=== PATIENT | female | born 1940 | race Caucasian/White ===

== ENCOUNTER → 2017-08-08 | Outpatient (CLI) | payer OTHER ==
[~2017-08-08] MED LIST: ALPR1TAB2 PO; CITA20TA9 PO; LEVO75TA PO; LISI-729 PO; MRLP17 PO
[2017-08-08 09:35] LABS: BASO % 0.6 %; BASO ABS # 0.03 K/uL (0-0.2); COMPLETE YES; EOS % 3.3 %; HEMATOCRIT 40.2 % (37-47); IG% 0.2 %; LYMPH % 32.6 %; LYMPH ABS # 1.67 K/uL (1.2-3.4); MEAN CELL VOLUME 91.6 fL (80-100); MEAN CORPUSCULAR HEMOGLOBIN 30.8 pg (25-34); MEAN CORPUSCULAR HGB CONC 33.6 g/dl (32-36); MEAN PLATELET VOLUME 10.5 fL (7.4-10.4); MONO % 6.1 %; NEUT % 57.2 %; PLATELET COUNT 219 K/uL (130-400); RED BLOOD COUNT 4.39 M/uL (4.2-5.4); WHITE BLOOD COUNT 5.12 K/uL (4.8-10.8)
[2017-08-08 09:52] LABS: BLOOD UREA NITROGEN 19 mg/dl (7-18); BUN/CREATININE RATIO 18.9 (10-20); CALCIUM 9.3 mg/dl (8.5-10.1); CARBON DIOXIDE 29 mmol/L (21-32); CHLORIDE 108 mmol/L (98-107); CREATININE 0.98 mg/dl (0.60-1.20); GLUCOSE 100 mg/dl (70-99); PHOSPHORUS 3.6 mg/dl (2.5-4.9); POTASSIUM 4.5 mmol/L (3.5-5.1); SODIUM 143 mmol/L (136-145)
[2017-08-08 10:01] LABS: ALB/GLOB RATIO 1.1 (0.9-2); ALKALINE PHOSPHATASE 109 U/L (45-117); ALT/SGPT 18 U/L (12-78); AST/SGOT 15 U/L (15-37); CHOLESTEROL 185 mg/dl (0-200); HDL CHOLESTEROL 46 mg/dl; LDL CHOLESTEROL CALCULATED 104 mg/dl; TRIGLYCERIDES 177 mg/dl (0-150); URIC ACID 6.3 mg/dl (2.6-7.2); VERY LOW DENSITY LIPOPROT CALC 35 mg/dl
[2017-08-08 14:30] LABS: ESTIMATED AVERAGE GLUCOSE 111 mg/dl; HA1C FLAG Normal (Normal)
== END | disposition home or self-care (01) ==
LOC: C.LAB1850 07:46
PROVIDERS: ATTEND Family Medicine
DX: R73.09 Other abnormal glucose (principal); E55.9 Vitamin D deficiency, unspecified; D51.9 Vitamin B12 deficiency anemia, unspecified

== ENCOUNTER → 2018-01-31 | Outpatient (CLI) | payer OTHER ==
[2018-01-31 13:23] LABS: BASO % 0.5 %; BASO ABS # 0.04 K/uL (0-0.2); EOS % 1.9 %; EOS ABS # 0.15 K/uL (0-0.5); HEMATOCRIT 40.5 % (37-47); HEMOGLOBIN 13.4 g/dL (12.0-16.0); IG# 0.01 K/uL (0.00-0.02); LYMPH % 31.5 %; LYMPH ABS # 2.48 K/uL (1.2-3.4); MEAN CELL VOLUME 91.6 fL (80-100); MEAN CORPUSCULAR HEMOGLOBIN 30.3 pg (25-34); MEAN CORPUSCULAR HGB CONC 33.1 g/dl (32-36); MEAN PLATELET VOLUME 10.4 fL (7.4-10.4); MONO % 4.3 %; MONO ABS # 0.34 K/uL (0.11-0.59); NEUT % 61.7 %; NEUT ABS # 4.86 K/uL (1.4-6.5); PLATELET COUNT 244 K/uL (130-400); RED CELL DISTRIBUTION WIDTH CV 12.5 % (11.5-14.5); RED CELL DISTRIBUTION WIDTH SD 42.4 fL (36.4-46.3); WHITE BLOOD COUNT 7.88 K/uL (4.8-10.8)
[2018-01-31 13:48] LABS: HEMOGLOBIN A1C 5.5 % (4.5-5.6)
[2018-01-31 16:46] LABS: ALBUMIN 4.2 gm/dl (3.4-5.0); ALT/SGPT 20 U/L (12-78); AST/SGOT 16 U/L (15-37); BLOOD UREA NITROGEN 19 mg/dl (7-18); CALCIUM 9.7 mg/dl (8.5-10.1); CARBON DIOXIDE 30 mmol/L (21-32); CHOLESTEROL 177 mg/dl (0-200); CREATININE 1.01 mg/dl (0.60-1.20); GLUCOSE 87 mg/dl (70-99); POTASSIUM 5.2 mmol/L (3.5-5.1); SODIUM 138 mmol/L (136-145); TRANSFERRIN 221 mg/dl (200-360)
[2018-01-31 16:55] LABS: ALKALINE PHOSPHATASE 105 U/L (45-117); LDL CHOLESTEROL CALCULATED 98 mg/dl; TOTAL PROTEIN 7.4 gm/dl (6.4-8.2)
[2018-01-31 16:56] LABS: URIC ACID 5.9 mg/dl (2.6-7.2)
== END | disposition home or self-care (01) ==
LOC: C.LAB1850 12:04
PROVIDERS: ATTEND Family Medicine
DX: R73.09 Other abnormal glucose (principal); E55.9 Vitamin D deficiency, unspecified; D51.9 Vitamin B12 deficiency anemia, unspecified; E78.9 Disorder of lipoprotein metabolism, unspecified; R53.83 Other fatigue

== ENCOUNTER 2018-02-06 20:48 | Emergency (ER) | payer OTHER ==
[~2018-02-06] VITALS: Ht 162.6 cm; Wt 79.0 kg
[2018-02-06 20:57] VITALS: TEMP 36.8; Ht 162.6 cm; Wt 79.0 kg
[2018-02-06] MEDS ORDERED: ALPRAZOLAM 0.5 MG TAB PO STA (21:11)
--- NOTE | 2018-02-06 21:20 | EMERGENCY ROOM VISIT NOTE ---
History Report prepared by [facility]: Gabriela Loza Under the Supervision of: Dr. Abhi Berger M.D. First contact with patient: 21:04 Chief Complaint: CARDIAC ASSESSMENT Stated Complaint: PAIN IN CHEST, TINGLING IN FEET History of Present Illness The patient is a 77 year old female who presents to the Emergency Room with complaints of persistent chest pain that started last night. She describes her chest as feeling tight. The patient notes she had a bad anxiety attack last night. She states she was hyperventilating. The patient notes she had anxiety before and her symptoms felt similar but not as bad. She states her feet are cold and tingly. She notes her chest had a "fiery" feeling today and she's had anxiety all day today. The patient has shortness of breath and nausea. The patient has a history of high blood pressure. Source of History: patient Onset: last night Position: chest Timing: other (persistent) Associated Symptoms: + SOB, + nausea Note: Feet are cold and tingly. Review of Systems See HPI for pertinent positives & negatives. A total of 10 systems reviewed and were otherwise negative. Past Medical & Surgical High blood pressure, anxiety, cholecystectomy. Old medical records were reviewed. Nurse's notes were reviewed and I agree with. Family History Hypertension Social History Smoking Status: Never Smoker Alcohol Use: none Drug Use: none Marital Status: Housing Status: lives with significant other Occupation Status: unemployed Current/Historical Medications Scheduled Alprazolam (Xanax), 1 MG PO HS Citalopram Hydrobromide (Celexa), 20 MG PO DAILY Levothyroxine Sodium (Synthroid), 75 MCG PO DAILY Lisinopril (Zestril), 5 MG PO DAILY Polyethylene Glycol (Miralax *), 17 GM PO DAILY Allergies Coded Allergies: Codeine (Verified Allergy, Severe, ANAPHYLAXIS, 07/30/12) Paroxetine (Verified Allergy, Unknown, unknown, 07/30/12) Physical Exam Vital Signs Date Time Temp Pulse Resp B/P (MAP) Pulse Ox O2 Delivery O2 Flow Rate FiO2 02/06/18 22:52 63 18 153/87 96 02/06/18 22:16 64 18 154/81 93 Room Air 02/06/18 21:30 97 Room Air 02/06/18 20:57 36.8 70 18 205/93 97 Room Air Physical Exam General: Non-ill appearing older female in no acute distress. Mildly anxious. HEENT: Normal cephalic atraumatic. Pupils are equal round and reactive to light. Extraocular movements are intact. Oropharynx is pink with moist mucous membranes. No swelling of the mouth lips or tongue. Neck: Supple with a midline trachea. No meningeal signs or stiffness, no JVD or bruits. No Stridor. Chest: Clear to auscultation bilaterally. No wheezes or rhonchi. No increased work of breathing. Heart: regular rate and rhythm. Abdomen: Soft nontender, nondistended without rebound guarding or rigidity. Extremities: No cyanosis clubbing or edema. No calf tenderness or assymetry Spine/Back. Non tender to palpation. No CVA tenderness Skin: Good turgor without rashes. Neurologic exam: Cranial nerves two through 12 are intact. Motor and sensation are intact and symmetrical throughout. Medical Decision & Procedures ER Provider Diagnostic Interpretation: Radiology results as stated below per my review and radiologist interpretation: CHEST ONE VIEW PORTABLE HISTORY: Atypical CHEST PAIN COMPARISON: Chest 04/07/2012. FINDINGS: The lungs are clear. Cardiac silhouette is normal in size. No pleural effusions. No pneumothorax. IMPRESSION: No acute process. Electronically signed by: Fransico Sandoval M.D. 02/06/2018 9:31 PM Dictated Date/Time: 02/06/2018 9:29 PM Laboratory Results 02/06/18 21:30 Red Blood Count 4.33, Mean Corpuscular Volume 90.3, Mean Corpuscular Hemoglobin 30.5, Mean Corpuscular Hemoglobin Concent 33.8, Mean Platelet Volume 10.0, Neutrophils (%) (Auto) 64.9, Lymphocytes (%) (Auto) 29.0, Monocytes (%) (Auto) 4.4, Eosinophils (%) (Auto) 1.0, Basophils (%) (Auto) 0.4, Neutrophils # (Auto) 4.75, Lymphocytes # (Auto) 2.12, Monocytes # (Auto) 0.32, Eosinophils # (Auto) 0.07, Basophils # (Auto) 0.03 02/06/18 21:30 Test 02/06/18 21:30 02/06/18 21:36 White Blood Count 7.31 K/uL (4.8-10.8) Red Blood Count 4.33 M/uL (4.2-5.4) Hemoglobin 13.2 g/dL (12.0-16.0) Hematocrit 39.1 % (37-47) Mean Corpuscular Volume 90.3 fL (80-100) Mean Corpuscular Hemoglobin 30.5 pg (25-34) Mean Corpuscular Hemoglobin Concent 33.8 g/dl (32-36) Platelet Count 246 K/uL (130-400) Mean Platelet Volume 10.0 fL (7.4-10.4) Neutrophils (%) (Auto) 64.9 % Lymphocytes (%) (Auto) 29.0 % Monocytes (%) (Auto) 4.4 % Eosinophils (%) (Auto) 1.0 % Basophils (%) (Auto) 0.4 % Neutrophils # (Auto) 4.75 K/uL (1.4-6.5) Lymphocytes # (Auto) 2.12 K/uL (1.2-3.4) Monocytes # (Auto) 0.32 K/uL (0.11-0.59) Eosinophils # (Auto) 0.07 K/uL (0-0.5) Basophils # (Auto) 0.03 K/uL (0-0.2) RDW Standard Deviation 41.2 fL (36.4-46.3) RDW Coefficient of Variation 12.4 % (11.5-14.5) Immature Granulocyte % (Auto) 0.3 % Immature Granulocyte # (Auto) 0.02 K/uL (0.00-0.02) Prothrombin Time 10.4 SECONDS (9.0-12.0) Prothromb Time International Ratio 1.0 (0.9-1.1) Activated Partial Thromboplast Time 24.6 SECONDS (21.0-31.0) Partial Thromboplastin Ratio 0.9 D-Dimer < 190 ug/L FEU (0-500) Anion Gap 4.0 mmol/L (3-11) Est Creatinine Clear Calc Drug Dose 44.2 ml/min Estimated GFR () 55.6 Estimated GFR (Non- 48.0 BUN/Creatinine Ratio 14.5 (10-20) Calcium Level 8.9 mg/dl (8.5-10.1) Total Bilirubin 0.4 mg/dl (0.2-1) Direct Bilirubin 0.1 mg/dl (0-0.2) Aspartate Amino Transf (AST/SGOT) 19 U/L (15-37) Alanine Aminotransferase (ALT/SGPT) 21 U/L (12-78) Alkaline Phosphatase 105 U/L (45-117) Total Creatine Kinase 86 U/L (26-192) Creatine Kinase MB 0.7 ng/ml (0.5-3.6) Creatine Kinase MB Ratio 0.8 (0-3.0) Total Protein 7.1 gm/dl (6.4-8.2) Albumin 3.9 gm/dl (3.4-5.0) Lipase 88 U/L (73-393) Bedside Troponin I < 0.030 ng/ml (0-0.045) Medications Administered Medications (Trade) Dose Ordered Sig/Monster Route Start Time Stop Time Status Last Admin Dose Admin Alprazolam (Xanax Tab) 0.5 mg NOW STAT PO 02/06/18 21:11 02/06/18 21:13 DC 02/06/18 21:32 0.5 MG ECG Per My Interpretation Indication: chest pain Rate (beats per minute): 76 Rhythm: normal sinus Findings: nonspecific-ST abn, no acute ischemic change Comparison ECG Date: 04/07/12 Change: no significant change ED Course 2103: Past medical records reviewed. The patient was evaluated in room B2, and a complete history and physical examination were performed. 2110: Xanax Tab 0.5 mg PO. Medical Decision Differentials include, but are not limited to; cardiac disease, anxiety, arrhythmia, PE, infection, electrolyte or metabolic abnormality. This patient comes in as described above. She was placed in room B2. She is here for treatment and evaluation of anxiety and some chest discomfort. She has a long history of anxiety and ran out of her Xanax yesterday. She says this feels like her typical anxiety although somewhat worse at times. This been going on since last night. She appears mildly anxious. EKG was obtained and shows no acute ischemic changes when compared to old CK and troponin were both normal despite having multiple hours of symptoms since yesterday and this makes cardiac disease highly unlikely. Chest x-ray does not show anything to suggest congestive heart failure, pneumonia, or pneumothorax. D-dimer is negative and in a low pretest probability setting makes PE highly unlikely. She has no acute electrolyte or metabolic abnormalities. She was given her normal evening Xanax dose here of 0.5 mg and went back to recheck her she says she feels 100% better. I think most likely this is anxiety. I talked to the patient and her at length and told them that I cannot 100% rule out a cardiac etiology and the most conservative plan will be to observe her overnight in the hospital they declined this and when I go home. I think that this is reasonable given that her cardiac biomarkers are negative despite having symptoms since yesterday and has a nonischemic unchanged EKG. I did encourage close follow-up with her doctor tomorrow and they should return if they have recurrence or worsening symptoms or any new problems or concerns. They are happy the plan and discharged to home. Medication Reconcilliation Current Medication List: was personally reviewed by me Blood Pressure Screening Patient's blood pressure: Elevated blood pressure Blood pressure disposition: Elevated BP felt to be situational, Referred to PCP Impression Primary Impression: Chest pain Additional Impression: Anxiety Scribe Attestation The scribe's documentation has been prepared under my direction and personally reviewed by me in its entirety. I confirm that the note above accurately reflects all work, treatment, procedures, and medical decision making performed by me. Departure Information Referrals Amado Nunes M.D. (PCP) Patient Instructions My [facility] Problem Qualifiers
--- NOTE | 2018-02-06 21:33 | DIAGNOSTIC IMAGING REPORT ---
CHEST ONE VIEW PORTABLE HISTORY: Atypical CHEST PAIN COMPARISON: Chest 04/07/2012. FINDINGS: The lungs are clear. Cardiac silhouette is normal in size. No pleural effusions. No pneumothorax. IMPRESSION: No acute process. Electronically signed by: Fransico Sandoval M.D. 02/06/2018 9:31 PM Dictated Date/Time: 02/06/2018 9:29 PM
[2018-02-06 21:47] LABS: BASO % 0.4 %; BASO ABS # 0.03 K/uL (0-0.2); EOS ABS # 0.07 K/uL (0-0.5); HEMATOCRIT 39.1 % (37-47); HEMOGLOBIN 13.2 g/dL (12.0-16.0); IG# 0.02 K/uL (0.00-0.02); LYMPH ABS # 2.12 K/uL (1.2-3.4); MEAN CELL VOLUME 90.3 fL (80-100); MEAN CORPUSCULAR HEMOGLOBIN 30.5 pg (25-34); MEAN CORPUSCULAR HGB CONC 33.8 g/dl (32-36); MONO % 4.4 %; MONO ABS # 0.32 K/uL (0.11-0.59); NEUT % 64.9 %; NEUT ABS # 4.75 K/uL (1.4-6.5); PLATELET COUNT 246 K/uL (130-400); RED CELL DISTRIBUTION WIDTH CV 12.4 % (11.5-14.5); RED CELL DISTRIBUTION WIDTH SD 41.2 fL (36.4-46.3); WHITE BLOOD COUNT 7.31 K/uL (4.8-10.8)
[2018-02-06 22:01] LABS: PTT PATIENT 24.6 SECONDS (21.0-31.0)
[2018-02-06 22:06] LABS: CALCIUM 8.9 mg/dl (8.5-10.1); CREATININE 1.12 mg/dl (0.60-1.20); POTASSIUM 3.6 mmol/L (3.5-5.1)
[2018-02-06 22:25] LABS: ALBUMIN 3.9 gm/dl (3.4-5.0); CKMB 0.7 ng/ml (0.5-3.6); TOTAL PROTEIN 7.1 gm/dl (6.4-8.2)
[2018-02-06 22:52] VITALS: BP 153/87; PULSE 63; O2SAT 96
== END 2018-02-06 22:52 | disposition home or self-care (01) ==
LOC: C.EDB 20:48
DX: R07.9 Chest pain, unspecified (principal); F41.9 Anxiety disorder, unspecified; I10 Essential (primary) hypertension; Z88.5 Allergy status to narcotic agent; Z88.8 Allergy status to other drugs, medicaments and biological substances

== ENCOUNTER 2019-04-10 07:21 | Inpatient (IN) ==
[2019-04-10] MEDS ORDERED: SODIUM CHLORIDE 0.9% 1000ML 1,000 ML IV SCH (07:45)
[2019-04-10 08:09] LABS: Basophils # (auto) 0.04 K/uL (0-0.2); Basophils % (auto) 0.7 %; Eosinophils # (auto) 0.25 K/uL (0-0.5); Eosinophils % (auto) 4.4 %; Hemoglobin 12.2 g/dL (12.0-16.0); Immature Granulocytes # (auto) 0.01 K/uL (0.00-0.02); Immature Granulocytes % (auto) 0.2 %; Lymphocytes # (auto) 1.28 K/uL (1.2-3.4); Lymphocytes % (auto) 22.7 %; Mean Corpuscular Volume 90.5 fL (80-100); Mean Platelet Volume 10.2 fL (7.4-10.4); Monocytes # (auto) 0.27 K/uL (0.11-0.59); Monocytes % (auto) 4.8 %; Neutrophils # (auto) 3.79 K/uL (1.4-6.5); Neutrophils % (auto) 67.2 %; Platelet Count 211 K/uL (130-400); RDW Coefficient of Variation 12.4 % (11.5-14.5); RDW Standard Deviation 40.6 fL (36.4-46.3); Red Blood Count 4.09 M/uL (4.2-5.4); White Blood Count 5.64 K/uL (4.8-10.8)
[2019-04-10 08:16] LABS: Partial Thromboplastin Ratio 0.9; Partial Thromboplastin Time 25.4 Seconds (21.0-31.0); Prothrombin Time 10.1 Seconds (9.0-12.0)
[2019-04-10 08:21] LABS: Albumin Level 3.5 gm/dl (3.4-5.0); BUN Creatinine Ratio 18.8 (10-20); Calcium 9.1 mg/dl (8.5-10.1); Creatinine Clr Calc Pharmacy 49.7 ml/min; Est GFR (African American) 65.8; Est GFR (Non-African American) 56.7
[2019-04-10 08:24] LABS: Albumin Globulin Ratio 1.1 (0.9-2); Bilirubin,Total 0.4 mg/dl (0.2-1); Globulin 3.2 gm/dl (2.5-4.0); Total Protein 6.7 gm/dl (6.4-8.2)
--- NOTE | 2019-04-10 08:26 | CT Scan Report ---
ABDOMEN AND PELVIS CT WITHOUT CONTRAST CT DOSE: 441.73 mGy.cm HISTORY: Bloody stool. gi bleed TECHNIQUE: Multiaxial CT images of the abdomen and pelvis were performed without contrast. A dose lo wering technique was utilized adhering to the principles of ALARA. COMPARISON STUDY: None. FINDINGS: The lung bases are clear. No pneumoperitoneum. No pneumatosis. No suspicious lytic or blast ic osseous lesions. Small fat-containing right inguinal hernia. The gallbladder appears surgically ab sent. The unenhanced liver, spleen, right kidney, adrenal glands, and pancreas are unremarkable. Ther e is a punctate stone within the lower pole the left kidney. No ureteral stones. No hydronephrosis. T he bladder, uterus, bilateral adnexa are unremarkable. There is a 6 cm segment of mild colonic wall t hickening best seen on image 321. There are a few prominent pericolonic lymph nodes medial to this ar ea of bowel wall thickening. Therefore, this findings is highly concerning for an underlying colonic mass. A developing colitis/diverticulitis could also have a similar appearance in the appropriate cli nical setting. No evidence for bowel obstruction. Moderate well-formed stool within the colon. The ap pendix is not identified and reportedly surgically absent. No retroperitoneal lymphadenopathy. IMPRESSION: 1. A 6 cm segment of mild colonic wall thickening with a few prominent adjacent pericolonic lymph nod es. Therefore, this is highly concerning for a colonic mass. Colonoscopy recommended for further eval uation. 2. This could also represent a developing colitis/diverticulitis in the appropriate clinical setting. Electronically signed by: Fransico Sandoval M.D. 04/10/2019 8:25 AM
--- NOTE | 2019-04-10 10:41 | Gastrointestinal Consultation ---
Date of Consultation April 10, 2019 Assessment & Plan (1) Lower GI bleed: H/H 12.2/37.0. -Monitor H/H -Low fiber diet throughout the weekend -Prep Saturday night for colonoscopy on Friday 04/13 for further evaluation of bleeding & abnormal CT scan Present on Admission?: Yes (2) Abnormal CT scan, colon: CT indicates possible mass on the left side of the colon. -Plan for colonoscopy Friday 04/13 for further evaluation Present on Admission?: Yes Supervising Physician Co-Signing Physician Notes Agree with BAKARI Huffman as above Abd: Soft, NT, ND, +BS Continue current therapy Will need colonoscopy for further evaluation of abnormal CT scan History of Present Illness History of Present Illness Anna is a 78 yo female with a PMH of hemorrhoidectomy, hypothyroidism, hypertension, and anxiety who presented to [facility] ED this AM with complaints of large volume rectal bleeding. She reports that for several days she noted that her stool was dark. She denies abdominal pain, constipation, or diarrhea. She noted that this morning she felt as though she needed to have a bowel movement. She went to the bathroom and passed what she describes as a large amount of bright red blood. She denies similar issues or GI problems in the past. She had a colonoscopy in [address] Iglesias. The report for this is unavailable, however she reports that it was unremarkable. She denies family history of GI malignancy. In the ED, her H/H was noted to be 12.2/37.0. She was mildly hypertensive. A CT scan indicated a 6 cm segment of the left side of the colon with inflamed adjacent lymph nodes concerning for a mass. Allergies Allergy/AdvReac Type Severity Reaction Status Date / Time codeine Allergy Severe ANAPHYLAXIS Verified 04/10/19 08:35 paroxetine Allergy Unknown unknown Verified 04/10/19 08:35 Home Medications Home Medications Medication Instructions Recorded Confirmed Type alprazolam 0.5 mg PO HS 04/10/19 04/10/19 History citalopram 10 mg PO QAM 04/10/19 04/10/19 History levothyroxine 75 mcg PO QAM 04/10/19 04/10/19 History lisinopril 5 mg PO QAM 04/10/19 04/10/19 History polyethylene glycol 3350 17 g PO QAM 04/10/19 04/10/19 History Patient History Medical History Hemorrhoids Anxiety Hypertension Surgical History History of hemorrhoidectomy History of colonoscopy History of appendectomy History of cholecystectomy Family History Brother Aneurysm Social History Preferred Language: Mohawk Communication Ability: Effective Novelty Maker Required: No Beliefs That Will Affect Care: None marital status: Current Living Situation: Spouse Other Information That Helps Us Care for You: No Feels Safe at Home: Yes Safety Concerns: Feels Safe At This Time Smoking Status: Former smoker Cigarettes Per Day: 1961 Do You Dip or Chew Tobacco: No Second Hand Exposure: No Tobacco Cessation Education Requested by Patient: No Hx Alcohol Use: No Hx Substance Use: No Review of Systems Constitutional: no fever and no chills Eyes: eye twitching Ear, Nose, Mouth, Throat: no acute issues Respiratory: no cough and no dyspnea Cardiovascular: no chest pain Gastrointestinal: + blood in stools; no abdominal pain, no constipation and no diarrhea/loose stools Musculoskeletal: no back pain Integumentary: no rash Neurologic: no acute issues Psychiatric: no acute issues Endocrine: no fatigue Hematologic / Lymphatic: no easy bleeding Physical Exam Constitutional: WD/WN, vitals as above Eyes: PERRL, conjunctivae normal, anicteric sclerae eye twitching ENMT: external ear and nose normal, oropharynx normal Respiratory: normal respiratory effort, lungs clear to auscultation Cardiovascular: RRR, no murmur, no edema Gastrointestinal (Abdomen): normal bowel sounds, soft, nontender, no hepatosplenomegaly Musculoskeletal: no cyanosis or clubbing, extremities motor strength 5/5 Skin: no rashes, warm and dry Neurologic: moves all extremities Psychiatric: A+Ox3, euthymic affect Results & Data Vital Signs (Past 12 Hours) Vital Signs Temp Pulse Pulse Resp BP BP Pulse Ox 04/10/19 10:35 68 17 174/94 H 95 04/10/19 09:37 69 18 172/91 H 96 04/10/19 08:21 75 17 192/93 H 96 04/10/19 07:26 37 C 82 16 190/103 H 98
[2019-04-10] MEDS ORDERED: ONDANSETRON INJ 2 MG/ML 2 ML VIAL IV PRN (11:26)
[2019-04-10] MEDS ORDERED: ALUMINUM/MAGNESIUM SUSP 30 ML UDC PO PRN (11:26)
[2019-04-10] MEDS ORDERED: ACETAMINOPHEN 325 MG TAB PO PRN (11:26)
[2019-04-10] MEDS ORDERED: LORazepam 0.5 MG TAB PO PRN (11:26)
[2019-04-10] MEDS: LISINOPRIL 5 MG TAB PO SCH (12:13)
--- NOTE | 2019-04-10 14:56 | History & Physical Report ---
Date of Service April 10, 2019 Assessment & Plan (1) Lower GI bleed: CT a/p on 04/10 showed "6 cm segment of mild colonic wall thickening with a few prominent adjacent pericolonic lymph nodes." This is concerning for cancer, IBD, or possibly infection. - C. diff, stool testing ordered - GI consulted - Plan for colo on Saturday - Prep on Saturday (2) Hypertension: BP elevated in the setting of anxiety. - Continue lisinopril - Can add hydralazine PRN for BP > 180/110 (3) Anxiety: Long-standing and on minimal meds from her PCP. - Continue home Xanax 0.5mg PO QHS - Added Ativan PRN given the high-stress situation (4) DVT prophylaxis: SCDs - Holding chemoprophylaxis given bleeding and upcoming procedure History of Present Illness Primary Care Provider: Amado Nunes 78yo F w/ hx of anxiety & HTN who presents with bright red blood per rectum. She reports some darker stools that started on Saturday/Saturday. Only 1 per day and normal consistency. Not black or tarry, but just darker brown. This occurred until when she had a small amount of blood on the stool that was still a bit darker. Finally, on Saturday morning, she reports looser stool with large amounts of bright red blood. She had 3 episodes, each time with mixed dark brown stool and bright red blood. She denies any systemic symptoms such as lightheadedness, dizziness, chest pain, abdominal pain, nausea, vomiting. She has a history of hemorrhoids, but none recently and always very minimal blood on stool. She also denies any fevers/chills, night sweats, weight loss, or any other B symptoms. She has no family history of cancer or autoimmune diseases. Allergies Allergy/AdvReac Type Severity Reaction Status Date / Time codeine Allergy Severe ANAPHYLAXIS Verified 04/10/19 08:35 paroxetine Allergy Unknown unknown Verified 04/10/19 08:35 Home Medications Home Medications Medication Instructions Recorded Confirmed Type alprazolam 0.5 mg PO HS 04/10/19 04/10/19 History citalopram 10 mg PO QAM 04/10/19 04/10/19 History levothyroxine 75 mcg PO QAM 04/10/19 04/10/19 History lisinopril 5 mg PO QAM 04/10/19 04/10/19 History polyethylene glycol 3350 17 g PO QAM 04/10/19 04/10/19 History Past Med/Surg History Medical History Hemorrhoids Anxiety Hypertension Surgical History History of hemorrhoidectomy History of colonoscopy History of appendectomy History of cholecystectomy Family History Brother Aneurysm Social History Preferred Language: Macedonian Communication Ability: Effective Oil Spot Washer Required: No Beliefs That Will Affect Care: None marital status: Current Living Situation: Spouse Other Information That Helps Us Care for You: No Feels Safe at Home: Yes Safety Concerns: Feels Safe At This Time Smoking Status: Former smoker Cigarettes Per Day: 1961 Do You Dip or Chew Tobacco: No Second Hand Exposure: No Tobacco Cessation Education Requested by Patient: No Hx Alcohol Use: No Hx Substance Use: No Review of Systems Review of Systems: All systems reviewed & are unremarkable except as noted in HPI & below Physical Exam Constitutional: WD/WN, vitals as above Eyes: EOM intact bilaterally; no conjunctival abnormality ENMT: external ear and nose normal, oropharynx normal Neck: trachea midline, no thyromegaly normal visual inspection Respiratory: normal respiratory effort, lungs clear to auscultation no respiratory distress Cardiovascular: RRR, no murmur, no edema Gastrointestinal (Abdomen): Inspection/Auscultation: abdomen normal to inspection; abdomen not distended Musculoskeletal: no cyanosis or clubbing, extremities motor strength 5/5 Skin: no rashes, warm and dry Neurologic: moves all extremities and awake Psychiatric: Orientation: alert, oriented to person and cooperative Results & Data Vital Signs (Past 12 Hours) Vital Signs Temp Pulse Pulse Resp BP BP Pulse Ox 04/10/19 12:55 38.6 C H 04/10/19 10:50 37 C 74 18 186/69 H 94 04/10/19 10:35 68 17 174/94 H 95 04/10/19 09:37 69 18 172/91 H 96 04/10/19 08:21 75 17 192/93 H 96 04/10/19 07:26 37 C 82 16 190/103 H 98 PG Care Time/CCT Total # of Minutes Spent Total Time Spent with Patient: Total time spent is greater than 50% in coordination of care (as documented) at patient's floor/unit and/or counseling patient:
--- NOTE | 2019-04-10 15:19 | Emergency Department Note ---
Entered by Esha Aguilar acting as a scribe for ED Provider Note CHIEF COMPLAINT: Rectal bleeding HISTORY OF PRESENT ILLNESS: The patient is a 78 year old female who presents to the Emergency Room with complaints of a persistent rectal bleeding that began this morning. The patient reports that she got up this morning and felt like to go and states that this is unusual for her. She notes that she then had a bowel movement that was all blood. She explains that she has had 3 episodes today. She describes the blood as dark and bright red. She denies being on any blood thinners but states that she does take a low-dose aspirin every other day. She denies any similar episod es in the past. She reports that her last colonoscopy was several years ago. She also states that the past few days she has noticed some blood in her stool but explains this is normal for her secondary to her history of hemorrhoids. The patient denies LOC, headache, fevers, chills, visual changes, neck pain, chest pain, breathing difficulties, nausea, vomiting, ENT complaints, urinary symptoms, lymphadenopathy, or other complaints. REVIEW OF SYSTEMS: See HPI for pertinent positives and negatives. A total of ten systems were reviewed and were otherwise negative. PMHx/PSHx: Hemorrhoids History fo a colonoscopy SOCIAL HISTORY: Patient lives at home with . PHYSICAL EXAM: GENERAL: Awake, alert, well-appearing, in no distress HENT: Normocephalic, atraumatic. Oropharynx unremarkable. EYES: PERRL. Normal conjunctiva. Sclera non-icteric. NECK: Inspection normal. Non-tender. Supple. No nuchal rigidity. FROM. No masses. RESPIRATORY: Clear to auscultation. No wheezes. No rales. Normal respiratory effort. CARDIAC: Normal rate. Normal rhythm. No murmurs. No rubs. Extremities warm and well perfused. Pulses equal. No JVD. GI: Soft, non-distended. No tenderness to palpation. No rebound or guarding. No masses. RECTAL: Visible blood that is heme positive. MUSCULOSKELETAL: Atraumatic. Chest examination reveals no tenderness. The back is symmetrical on inspection without obvious abnormality. There is no CVA tenderness to palpation. No joint edema. LOWER EXTREMITIES: Calves are equal size bilaterally and non-tender. No edema. No discoloration. NEURO: Normal sensorium. No sensory or motor deficits noted. SKIN: No rash or jaundice noted. EMERGENCY DEPARTMENT COURSE: 0751: The patient was evaluated in room A10, and a complete history and physical examination were performed. 0848: We paged [facility]. 0849: I discussed the patients case with J[facility]. She will review the patients imaging and call back. 0856: JAMIE Canseco called back and explained that the patient is DrRadha Lewis. We have paged Dr. Calderon. 0915: I discussed the patients case with Dr. Calderon General Surgery. He recommends admission of the patient and will perform colonoscopy. 0921: I reviewed the patients case with Dr. Olivares [facility] Hospitalist. He will evaluate the patient for further management. MEDICAL DECISION MAKING: Triage Nursing notes reviewed and agree them. The patient's history was concerning for possible gastrointestinal bleeding. Differential diagnosis: Etiologies such as diverticulosis, AVM, coagulopathy, colitis, inflammatory bowel disease, malignancy,Lamar-Francis tear, esophagitis, peptic ulcer disease, variceal bleed, gastritis, epistaxis, fissure, hemorrhoids, as well as others were entertained. Physical exam: As above. The patient was experiencing bright red blood per rectum and this was heme positive. There was no significant fissure or active hemorrhoidal bleeding. ER treatment provided: Normal saline hydration Monitoring On reassessment the patient felt better. Diagnostics interpreted by me: ECG: Sinus rhythm The labs revealed an unremarkable CBC and chemistry panel. Imaging studies: CT scan of the abdomen pelvis was performed and was unremarkable. Consultation: A consultation was placed with gastroenterology. The case was discussed. Admission was recommended for thorough work-up including colonoscopy after prep. A consultation was placed with the hospitalist. The case was discussed and diagnostics were reviewed. The patient was evaluated in the ER for further treatment. IMPRESSION: Lower GI bleed PLAN: Being evaluated by hospitalist The scribe's documentation has been prepared under my direction and personally reviewed by me in its entirety. I confirm that the note above accurately reflects all work, treatment, procedures, and medical decision making performed by me. Impression & Plan Lower GI bleed Past Med/Surg History Medical History Hemorrhoids Anxiety Hypertension Surgical History History of hemorrhoidectomy History of colonoscopy History of appendectomy History of cholecystectomy Family History Brother Aneurysm Social History Preferred Language: Namibian Communication Ability: Effective Med Peds Required: No Beliefs That Will Affect Care: None marital status: Current Living Situation: Spouse Other Information That Helps Us Care for You: No Feels Safe at Home: Yes Safety Concerns: Feels Safe At This Time Smoking Status: Former smoker Cigarettes Per Day: 1961 Do You Dip or Chew Tobacco: No Second Hand Exposure: No Tobacco Cessation Education Requested by Patient: No Hx Alcohol Use: No Hx Substance Use: No Results & Data Vital Signs Vital Signs - 24 hr 04/10/19 07:26 04/10/19 08:21 04/10/19 09:37 Temperature 37 C Temperature Source Oral Sepsis Recent Fever Within 48 Hours No Sepsis Action Taken by Nursing No Action Required Pulse Rate 82 Pulse Rate [Apical] 75 69 Pulse Rhythm [Apical] Regular Regular Pulse Strength [Apical] Normal Normal Respiratory Rate 16 17 18 Respiratory Effort / Characteristics Non-Labored Spontaneous Non-Labored Spontaneous Non-Labored Spontaneous Respiratory Depth Normal Normal Normal Respiratory Pattern Regular Regular Blood Pressure 190/103 H Blood Pressure [Left Arm] 192/93 H 172/91 H Blood Pressure Mean 132 Blood Pressure Mean [Left Arm] 126 118 Blood Pressure Position Sitting Pulse Oximetry 98 96 96 Oxygen Delivery Method Room Air Room Air Room Air Home Medications Current Medication List: was personally reviewed by me Laboratory Data Attestation: I reviewed the patient's lab results. Result diagrams: 04/10/19 07:49 04/10/19 07:49 Lab Results 04/10/19 04/10/19 04/10/19 Range/Units 07:49 07:49 07:49 WBC 5.64 (4.8-10.8) K/uL RBC 4.09 L (4.2-5.4) M/uL Hgb 12.2 (12.0-16.0) g/dL Hct 37.0 (37-47) % MCV 90.5 (80-100) fL MCH 29.8 (25-34) pg MCHC 33.0 (32-36) g/dL RDW Std Deviation 40.6 (36.4-46.3) fL RDW Coeff of Amador 12.4 (11.5-14.5) % Plt Count 211 (130-400) K/uL MPV 10.2 (7.4-10.4) fL Immature Gran % (Auto) 0.2 % Neut % (Auto) 67.2 % Lymph % (Auto) 22.7 % Banner % (Auto) 4.8 % Eos % (Auto) 4.4 % Baso % (Auto) 0.7 % Immature Gran # (Auto) 0.01 (0.00-0.02) K/uL Neut # (Auto) 3.79 (1.4-6.5) K/uL Lymph # (Auto) 1.28 (1.2-3.4) K/uL Banner # (Auto) 0.27 (0.11-0.59) K/uL Eos # (Auto) 0.25 (0-0.5) K/uL Baso # (Auto) 0.04 (0-0.2) K/uL PT 10.1 (9.0-12.0) Seconds INR 1.0 (0.9-1.1) APTT 25.4 (21.0-31.0) Seconds PTT Ratio 0.9 Sodium 144 (136-145) mmol/L Potassium 4.0 (3.5-5.1) mmol/L Chloride 109 H (98-107) mmol/L Carbon Dioxide 29 (21-32) mmol/L Anion Gap 6.0 (3-11) BUN 18 (7-18) mg/dl Creatinine 0.97 (0.6-1.2) mg/dl Est Cr Clr Drug Dosing 49.7 ml/min Est GFR ( Amer) 65.8 Est GFR (Non-Af Amer) 56.7 BUN/Creatinine Ratio 18.8 (10-20) Glucose 102 H (70-99) mg/dl Calcium 9.1 (8.5-10.1) mg/dl Total Bilirubin 0.4 (0.2-1) mg/dl AST 15 (15-37) U/L ALT 16 (12-78) U/L Alkaline Phosphatase 109 (45-117) U/L Total Protein 6.7 (6.4-8.2) gm/dl Albumin 3.5 (3.4-5.0) gm/dl Globulin 3.2 (2.5-4.0) gm/dl Albumin/Globulin Ratio 1.1 (0.9-2) POC Stool Occult Blood (Negative) Blood Type Antibody Screen Antibody Identification Antigen Identification 04/10/19 04/10/19 Range/Units 07:49 07:50 WBC (4.8-10.8) K/uL RBC (4.2-5.4) M/uL Hgb (12.0-16.0) g/dL Hct (37-47) % MCV (80-100) fL MCH (25-34) pg MCHC (32-36) g/dL RDW Std Deviation (36.4-46.3) fL RDW Coeff of Amador (11.5-14.5) % Plt Count (130-400) K/uL MPV (7.4-10.4) fL Immature Gran % (Auto) % Neut % (Auto) % Lymph % (Auto) % Banner % (Auto) % Eos % (Auto) % Baso % (Auto) % Immature Gran # (Auto) (0.00-0.02) K/uL Neut # (Auto) (1.4-6.5) K/uL Lymph # (Auto) (1.2-3.4) K/uL Banner # (Auto) (0.11-0.59) K/uL Eos # (Auto) (0-0.5) K/uL Baso # (Auto) (0-0.2) K/uL PT (9.0-12.0) Seconds INR (0.9-1.1) APTT (21.0-31.0) Seconds PTT Ratio Sodium (136-145) mmol/L Potassium (3.5-5.1) mmol/L Chloride (98-107) mmol/L Carbon Dioxide (21-32) mmol/L Anion Gap (3-11) BUN (7-18) mg/dl Creatinine (0.6-1.2) mg/dl Est Cr Clr Drug Dosing ml/min Est GFR ( Amer) Est GFR (Non-Af Amer) BUN/Creatinine Ratio (10-20) Glucose (70-99) mg/dl Calcium (8.5-10.1) mg/dl Total Bilirubin (0.2-1) mg/dl AST (15-37) U/L ALT (12-78) U/L Alkaline Phosphatase (45-117) U/L Total Protein (6.4-8.2) gm/dl Albumin (3.4-5.0) gm/dl Globulin (2.5-4.0) gm/dl Albumin/Globulin Ratio (0.9-2) POC Stool Occult Blood Positive A (Negative) Blood Type A Positive Antibody Screen POSITIVE A Antibody Identification Anti-K Antigen Identification K Antigen - NEGATIVE Administered Medications Lisinopril (Zestril) 5 mg PO QAM [facility] Stop: 05/10/19 11:25 Last Admin: 04/10/19 12:13 Dose: 5 mg Documented by: [id number] Discontinued Medications Sodium Chloride (Nss 1000ml) 1,000 mls @ 100 mls/hr IV .Q10H [facility] [place] Stop: 04/10/19 17:44 Last Admin: 04/10/19 08:17 Dose: 100 mls/hr Documented by: [id number] Imaging Data Radiologist's Impression: Radiology results as stated below per my review and the radiologist's interpretation: ABDOMEN AND PELVIS CT WITHOUT CONTRAST CT DOSE: 441.73 mGy.cm HISTORY: Bloody stool. gi bleed TECHNIQUE: Multiaxial CT images of the abdomen and pelvis were performed without contrast. A dose lowering technique was utilized adhering to the principles of ALARA. COMPARISON STUDY: None. FINDINGS: The lung bases are clear. No pneumoperitoneum. No pneumatosis. No suspicious lytic or blastic osseous lesions. Small fat-containing right inguinal hernia. The gallbladder appears surgically absent. The unenhanced liver, spleen, right kidney, adrenal glands, and pancreas are unremarkable. There is a punctate stone within the lower pole the left kidney. No ureteral stones. No hydronephrosis. The bladder, uterus, bilateral adnexa are unremarkable. There is a 6 cm segment of mild colonic wall thickening best seen on image 321. There are a few prominent pericolonic lymph nodes medial to this area of bowel wall thickening. Therefore, this findings is highly concerning for an underlying colonic mass. A developing colitis/diverticulitis could also have a similar appearance in the appropriate clinical setting. No evidence for bowel obstruction. Moderate well-formed stool within the colon. The appendix is not identified and reportedly surgically absent. No retroperitoneal lymphadenopathy. IMPRESSION: 1. A 6 cm segment of mild colonic wall thickening with a few prominent adjacent pericolonic lymph nodes. Therefore, this is highly concerning for a colonic mass. Colonoscopy recommended for further evaluation. 2. This could also represent a developing colitis/diverticulitis in the appropriate clinical setting. Electronically signed by: Fransico Sandoval M.D. 04/10/2019 8:25 AM ECG Data Attestation: I personally reviewed and interpreted this ECG as follows: Indication: other (bleed) Rate (beats per minute): 80 Rhythm: normal sinus Findings: + nonspecific-ST abn; no PAC, no PVC, no ST depression and no ST elevation Blood Pressure Blood Pressure Findings: Elevated blood pressure Blood Pressure Disposition: further management by hospitalist Discharge Plan Visit Data *Final* Discharge Date/Time: 04/10/19 10:35 Chief Complaint: Rectal Bleed Stated Complaint: RECTAL BLEEDING ED Provider: Sam Dailey Discharge Problem: Lower GI bleed Patient Disposition: Admitted As Inpatient Discharge Instructions Interventions: ED Discharge Assessment Last Done: 04/10/19 10:35 The scribe's documentation has been prepared under my direction and personally reviewed by me in its entirety. I confirm that the note above accurately reflects all work, treatment, procedures, and medical decision making performed by me.
[2019-04-10] MEDS: ALPRAZolam 0.5 MG TABLET PO SCH (22:02)
[2019-04-11] MEDS: LEVOTHYROXINE SODIUM 75 MCG TABLET PO SCH (05:35)
[2019-04-11 06:27] LABS: Hematocrit (blood only) 35.8 % (37-47); Hemoglobin 11.8 g/dL (12.0-16.0); Mean Corpuscular Volume 91.1 fL (80-100); Mean Platelet Volume 10.4 fL (7.4-10.4); Platelet Count 208 K/uL (130-400); RDW Coefficient of Variation 12.4 % (11.5-14.5); RDW Standard Deviation 41.7 fL (36.4-46.3); Red Blood Count 3.93 M/uL (4.2-5.4); White Blood Count 5.32 K/uL (4.8-10.8)
[2019-04-11 06:59] LABS: BUN Creatinine Ratio 18.5 (10-20); Calcium 8.7 mg/dl (8.5-10.1); Creatinine Clr Calc Pharmacy 50.3 ml/min; Est GFR (African American) 66.6; Est GFR (Non-African American) 57.4; Magnesium 2.3 mg/dl (1.8-2.4)
[2019-04-11] MEDS: CITALOPRAM 20 MG TAB PO SCH (08:13)
[2019-04-11] MEDS: LISINOPRIL 5 MG TAB PO SCH (08:13)
[2019-04-11] MEDS: POLYETHYLENE (MIRALAX) 17 GM PACK PO SCH (08:14)
--- NOTE | 2019-04-11 13:26 | Hospitalist Progress Note ---
Date of Service April 11, 2019 Assessment & Plan (1) Lower GI bleed: CT a/p on 04/10 showed "6 cm segment of mild colonic wall thickening with a few prominent adjacent pericolonic lymph nodes." This is concerning for cancer, IBD, or possibly infection. - C. diff on 04/10 was negative - Stool testing (E. coli, etc.) are pending - GI consulted - Plan for colo on Saturday - Prep on Saturday - Having some darker stools (describes as melenic, black/tarry) - Will discuss with Dr. Calderon if a PPI BID and/or EGD could be beneficial as well. (2) Hypertension: BP elevated in the setting of anxiety. - Continue lisinopril - Can add hydralazine PRN for BP > 180/110 (3) Anxiety: Long-standing and on minimal meds from her PCP. - Continue home Xanax 0.5mg PO QHS - Added Ativan PRN given the high-stress situation (4) DVT prophylaxis: SCDs - Holding chemoprophylaxis given bleeding and upcoming procedure Subjective Doing well today. She had another bloody BM overnight and this morning, but no lightheadedness or dizziness. No other symptoms. Review of Systems Review of Systems: All systems reviewed & are unremarkable except as noted in HPI & below Physical Exam Constitutional: WD/WN, vitals as above Eyes: EOM intact bilaterally; no conjunctival abnormality ENMT: external ear and nose normal, oropharynx normal Neck: trachea midline, no thyromegaly normal visual inspection Respiratory: normal respiratory effort, lungs clear to auscultation no respiratory distress Cardiovascular: RRR, no murmur, no edema Gastrointestinal (Abdomen): Inspection/Auscultation: abdomen normal to inspection; abdomen not distended Musculoskeletal: no cyanosis or clubbing, extremities motor strength 5/5 Skin: no rashes, warm and dry Neurologic: moves all extremities and awake Psychiatric: Orientation: alert, oriented to person and cooperative Results & Data Vital Signs (Past 12 Hours) Vital Signs Temp Pulse Resp BP Pulse Ox 04/11/19 11:58 37.1 C 70 18 149/76 H 97 04/11/19 07:55 36.6 C 70 17 155/74 H 95 PG Care Time/CCT Total # of Minutes Spent Total Time Spent with Patient: Total time spent is greater than 50% in coordination of care (as documented) at patient's floor/unit and/or counseling patient:
[2019-04-11] MEDS: PANTOprazole 40 MG TAB PO SCH (21:45)
[2019-04-11] MEDS: ALPRAZolam 0.5 MG TABLET PO SCH (21:45)
[2019-04-12] MEDS: LEVOTHYROXINE SODIUM 75 MCG TABLET PO SCH (05:29)
[2019-04-12 05:56] LABS: Hematocrit (blood only) 35.7 % (37-47); Mean Corpuscular Hgb Conc 33.6 g/dL (32-36); Mean Corpuscular Volume 90.2 fL (80-100); Mean Platelet Volume 10.2 fL (7.4-10.4); Platelet Count 229 K/uL (130-400); RDW Coefficient of Variation 12.3 % (11.5-14.5); RDW Standard Deviation 40.7 fL (36.4-46.3); Red Blood Count 3.96 M/uL (4.2-5.4); White Blood Count 6.34 K/uL (4.8-10.8)
[2019-04-12 06:21] LABS: BUN Creatinine Ratio 22.3 (10-20); Calcium 8.6 mg/dl (8.5-10.1); Est GFR (Non-African American) 61.3; Magnesium 2.3 mg/dl (1.8-2.4); Potassium 4.2 mmol/L (3.5-5.1)
[2019-04-12] MEDS: CITALOPRAM 20 MG TAB PO SCH (08:12)
[2019-04-12] MEDS: LISINOPRIL 5 MG TAB PO SCH (08:13)
[2019-04-12] MEDS: POLYETHYLENE (MIRALAX) 17 GM PACK PO SCH (08:13)
[2019-04-12] MEDS: PANTOprazole 40 MG TAB PO SCH ×2 (08:13→21:09)
--- NOTE | 2019-04-12 13:53 | Hospitalist Progress Note ---
Date of Service April 12, 2019 Assessment & Plan (1) Lower GI bleed: CT a/p on 04/10 showed "6 cm segment of mild colonic wall thickening with a few prominent adjacent pericolonic lymph nodes." This is concerning for cancer, IBD, or possibly infection. - C. diff & other stool testing on 04/10 was negative - GI consulted - Having some darker stools (describes as melenic, black/tarry) - Discussed with Dr. Calderon. Started PPI BID and now EGD is planned for Saturday as well as colo. (2) Hypertension: BP elevated in the setting of anxiety. - Continue lisinopril - Can add hydralazine PRN for BP > 180/110 (3) Anxiety: Long-standing and on minimal meds from her PCP. - Continue home Xanax 0.5mg PO QHS - Added Ativan PRN given the high-stress situation - Has not actually used it at all as of 04/12 (4) DVT prophylaxis: SCDs - Holding chemoprophylaxis given bleeding and upcoming procedure Subjective No major complaints. Still small amounts of bright red blood, but less. Review of Systems Review of Systems: All systems reviewed & are unremarkable except as noted in HPI & below Physical Exam Constitutional: WD/WN, vitals as above Eyes: EOM intact bilaterally; no conjunctival abnormality ENMT: external ear and nose normal, oropharynx normal Neck: trachea midline, no thyromegaly normal visual inspection Respiratory: normal respiratory effort, lungs clear to auscultation no respiratory distress Cardiovascular: RRR, no murmur, no edema Gastrointestinal (Abdomen): Inspection/Auscultation: abdomen normal to inspection; abdomen not distended Musculoskeletal: no cyanosis or clubbing, extremities motor strength 5/5 Skin: no rashes, warm and dry Neurologic: moves all extremities and awake Psychiatric: Orientation: alert, oriented to person and cooperative Results & Data Vital Signs (Past 12 Hours) Vital Signs Temp Pulse Resp BP Pulse Ox 04/12/19 07:24 36.9 C 69 16 150/82 H 95 PG Care Time/CCT Total # of Minutes Spent Total Time Spent with Patient: Total time spent is greater than 50% in coordination of care (as documented) at patient's floor/unit and/or counseling patient:
[2019-04-12] MEDS ORDERED: LAVAGE SOLUTION 4000ML PO SCH (18:00)
[2019-04-12] MEDS: NORMOSOL-R 1,000 ML IV SCH (21:09)
[2019-04-12] MEDS: ALPRAZolam 0.5 MG TABLET PO SCH (22:06)
[2019-04-13] MEDS: LEVOTHYROXINE SODIUM 75 MCG TABLET PO SCH (05:50)
[2019-04-13] MEDS: POLYETHYLENE (MIRALAX) 17 GM PACK PO SCH (07:14)
[2019-04-13 07:28] LABS: Hematocrit (blood only) 33.5 % (37-47); Hemoglobin 11.1 g/dL (12.0-16.0); Mean Corpuscular Hgb Conc 33.1 g/dL (32-36); Mean Corpuscular Volume 90.3 fL (80-100); Mean Platelet Volume 9.9 fL (7.4-10.4); Platelet Count 202 K/uL (130-400); RDW Coefficient of Variation 12.5 % (11.5-14.5); RDW Standard Deviation 40.7 fL (36.4-46.3); Red Blood Count 3.71 M/uL (4.2-5.4); White Blood Count 5.75 K/uL (4.8-10.8)
[2019-04-13] MEDS: LISINOPRIL 5 MG TAB PO SCH (07:41)
[2019-04-13] MEDS: PANTOprazole 40 MG TAB PO SCH (07:41)
[2019-04-13] MEDS: CITALOPRAM 20 MG TAB PO SCH (07:41)
[2019-04-13] MEDS: NORMOSOL-R 1,000 ML IV SCH (07:41)
[2019-04-13] MEDS ORDERED: MIDAZOLAM HCL 1 MG/ML 2ML VIAL ONE (08:58)
--- NOTE | 2019-04-13 09:50 | Gastroenterology Progress Note ---
Date of Service April 13, 2019 Assessment & Plan (1) Lower GI bleed: -Proceed with colonoscopy today for further evaluation -Continue to monitor H/H -No further bleeding at present Present on Admission?: Yes (2) Melena: -EGD today -Continue to monitor H/H Present on Admission?: No (3) Abnormal CT scan, colon: -Proceed with colonoscopy today for further evaluation of CT findings Present on Admission?: Yes Supervising Physician Co-Signing Physician Notes Agree with BAKARI Huffman as above Abd: Soft, NT, ND, +BS Proceed with EGD and colonoscopy now for further evaluation of GI bleed and abnormal CT imaging Continue supportive care. Subjective Patient is a 78 yo female hospitalized with BRBPR and an abnormal CT scan of the colon. The patient has completed her bowel prep and is currently NPO. She reports an episode of dark stool this weekend. Her H/H is presently 11.1/33.5. She denies abdominal pain or other GI symptoms. She has no further episodes of BRBPR. Review of Systems Constitutional: no fever and no chills Respiratory: no cough and no dyspnea Cardiovascular: no chest pain Gastrointestinal: + melena; no abdominal pain, no cramping and no blood in stools Integumentary: no rash Physical Exam Constitutional: WD/WN, vitals as above Respiratory: normal respiratory effort, lungs clear to auscultation Cardiovascular: RRR, no murmur, no edema Gastrointestinal (Abdomen): normal bowel sounds, soft, nontender, no hepatosplenomegaly Musculoskeletal: no cyanosis or clubbing, extremities motor strength 5/5 Results & Data Vital Signs (Past 12 Hours) Vital Signs Temp Pulse Resp BP BP Pulse Ox 04/13/19 07:37 36.8 C 70 16 187/83 H 95 04/13/19 00:00 172/86 H 04/12/19 23:15 36.5 C 69 18 181/90 H 97
--- NOTE | 2019-04-13 14:05 | Anesthesiology Consultation ---
Date of Service April 13, 2019 Assessment & Plan (1) Encounter for pre-operative examination: Chart Review Chart Review: Acceptable Risk for Surgery History Surgery Operation Date: 04/13/19 08:30 Proposed Procedures p Colonoscopy EGD Dr. Kvng Calderon, Height/Weight Height: 5 ft 4 in Weight: 77.6 kg Allergies Allergy/AdvReac Type Severity Reaction Status Date / Time codeine Allergy Severe ANAPHYLAXIS Verified 04/13/19 13:47 paroxetine Allergy Unknown unknown Verified 04/13/19 13:47 Medications Home Medications Medication Instructions Recorded Confirmed Last Taken alprazolam 0.5 mg PO HS 04/10/19 04/10/19 04/12/19 citalopram 10 mg PO QAM 04/10/19 04/10/19 04/13/19 levothyroxine 75 mcg PO QAM 04/10/19 04/10/19 04/13/19 lisinopril 5 mg PO QAM 04/10/19 04/10/19 04/13/19 polyethylene glycol 3350 17 g PO QAM 04/10/19 04/10/19 04/12/19 aspirin 81 mg 04/13/19 04/08/19 [id number] DAILY 04/13/19 04/12/19 [Glucosamine Chondroitin PLUS] Active Medications Generic Name Dose Route Start Last Admin Trade Name Freq PRN Reason Stop Dose Admin Alprazolam 0.5 mg 04/10/19 21:00 04/12/19 22:06 Xanax PO 05/10/19 20:59 Not Given HS GISSELL Citalopram Hydrobromide 10 mg 04/11/19 09:00 04/13/19 07:41 Celexa PO 05/11/19 08:59 10 mg QAM GISSELL Administration Parenteral Electrolytes 1,000 mls @ 80 mls/hr 04/12/19 21:00 04/13/19 07:41 Normosol-R IV 05/12/19 20:59 80 mls/hr .[id number] GISSELL Administration Levothyroxine Sodium 75 mcg 04/11/19 06:30 04/13/19 05:50 Synthroid PO 05/11/19 06:29 75 mcg DAILYBB GISSELL Administration Lisinopril 5 mg 04/10/19 11:26 04/13/19 07:41 Zestril PO 05/10/19 11:25 5 mg QAM GISSELL Administration Lorazepam 0.5 mg 04/10/19 11:26 04/12/19 23:35 Ativan PO 05/10/19 11:25 0.5 mg TID PRN Administration Anxiety Pantoprazole Sodium 40 mg 04/11/19 21:00 04/13/19 07:41 Protonix PO 05/11/19 20:59 40 mg BID GISSELL Administration Polyethylene Glycol 17 gm 04/11/19 09:00 04/13/19 07:14 Miralax Powder Packet PO 05/11/19 08:59 Not Given QAM GISSELL NPO Date Last Intake of Fluids: 04/13/19 Time Last Intake of Fluids: 00:05 Last Intake of Fluids Comment: allowed sips/ice chips. Date Last Intake of Solids: 04/12/19 Time Last Intake of Solids: 10:00 Last Intake of Solids Comment: prior to shift. Past Medical History Medical History Hemorrhoids Anxiety GERD (gastroesophageal reflux disease) Hypertension Hypothyroid Past Family History Family History Brother Aneurysm Past Surgical History Surgical History History of hemorrhoidectomy History of colonoscopy History of appendectomy History of cholecystectomy Social History Smoking Status: Former smoker Smoking cigarettes per day: 1961 Do You Dip or Chew Tobacco: No Hx Alcohol Use: No Hx Substance Use: No substance use type: does not use Physical Exam Vital Signs Last Vital Signs Temp 36.4 C L 04/13/19 13:53 Pulse 74 04/13/19 13:53 Resp 16 04/13/19 13:53 BP 174/81 H 04/13/19 13:53 Pulse Ox 95 04/13/19 13:53 Testing Laboratory Results 04/13/19 07:15 04/12/19 05:25 PT 10.1 Seconds (9.0-12.0) 04/10/19 07:49 INR 1.0 (0.9-1.1) 04/10/19 07:49 APTT 25.4 Seconds (21.0-31.0) 04/10/19 07:49 Blood Type A Positive 04/10/19 07:49 Antibody Screen POSITIVE A 04/10/19 07:49 04/10/19 18:41 WBC Smear - Final Stool Shiga Toxin Test - Final Stool Culture - Final No Salmonella isolated, No Shigella isolated, No Campylobacter jejuni isolated.
[2019-04-13] MEDS ORDERED: PROPOFOL IV EMULSION 10 MG/ML 20 ML VIAL IV ONE ×2 (14:25→14:39)
[2019-04-13] MEDS ORDERED: ONDANSETRON INJ 2 MG/ML 2 ML VIAL ONE (14:25)
[2019-04-13] MEDS ORDERED: LIDOCAINE HCL 2% 2 ML VIAL/AMP(20MG/ML) INFIL ONE ×2 (14:25)
[2019-04-13] MEDS ORDERED: ENDOSCOPIC MARKER 5 ML SYR TOP ONE (14:35)
--- NOTE | 2019-04-13 15:03 | GI REPORT ---
Patient Name: Anna Harrison Procedure Date: 04/13/2019 2:09 PM Date of : 1940 Admit Type: Inpatient Age: 78 Gender: Female Attending MD: Carlos Calderon DO Procedure: Upper GI endoscopy Providers: Carlos Calderon DO Referring MD: Corrina Raymond Md Indications: Melena, Abnormal CT of the GI tract Medicines: Monitored Anesthesia Care Complications: No immediate complications. Estimated Blood Loss: Estimated blood loss: none. Procedure: Pre-Anesthesia Assessment: - Prior to the procedure, a History and Physical was performed, and patient medications and allergies were reviewed. The patient's tolerance of previous anesthesia was also reviewed. The risks and benefits of the procedure and the sedation options and risks were discussed with the patient. All questions were answered, and informed consent was obtained. Prior Anticoagulants: The patient has taken aspirin, last dose was 5 days prior to procedure. ASA Grade Assessment: III - A patient with severe systemic disease. After reviewing the risks and benefits, the patient was deemed in satisfactory condition to undergo the procedure. After obtaining informed consent, the endoscope was passed under direct vision. Throughout the procedure, the patient's blood pressure, pulse, and oxygen saturations were monitored continuously. The Endoscope was introduced through the mouth, and advanced to the second part of duodenum. The upper GI endoscopy was accomplished without difficulty. The patient tolerated the procedure well. Findings: The esophagus was normal. A small hiatal hernia was present. The examined duodenum was normal. Impression: - Normal esophagus. - Small hiatal hernia. - Normal examined duodenum. - No specimens collected. Recommendation: - Continue present medications. - Perform a colonoscopy today. Carlos Calderon DO 04/13/2019 3:03:07 PM This report has been signed electronically. Note Initiated On: 04/13/2019 2:09 PM Number of Addenda: 0 I attest to the content of the Intraoperative Record and orders documented therein, exceptions below {[id number]}
--- NOTE | 2019-04-13 15:06 | GI REPORT ---
Patient Name: Anna Harrison Procedure Date: 04/13/2019 2:07 PM Date of : 1940 Admit Type: Inpatient Age: 78 Gender: Female Attending MD: Carlos Calderon DO Procedure: Colonoscopy Providers: Carlos Calderon DO Referring MD: Corrina Raymond Md Indications: Melena, Abnormal CT of the GI tract Medicines: Monitored Anesthesia Care Complications: No immediate complications. Estimated Blood Loss: Estimated blood loss: none. Procedure: Pre-Anesthesia Assessment: - Prior to the procedure, a History and Physical was performed, and patient medications and allergies were reviewed. The patient's tolerance of previous anesthesia was also reviewed. The risks and benefits of the procedure and the sedation options and risks were discussed with the patient. All questions were answered, and informed consent was obtained. Prior Anticoagulants: The patient has taken aspirin, last dose was 5 days prior to procedure. ASA Grade Assessment: III - A patient with severe systemic disease. After reviewing the risks and benefits, the patient was deemed in satisfactory condition to undergo the procedure. After I obtained informed consent, the scope was passed under direct vision. Throughout the procedure, the patient's blood pressure, pulse, and oxygen saturations were monitored continuously. The Scope was introduced through the anus and advanced to the terminal ileum. The colonoscopy was performed without difficulty. The patient tolerated the procedure well. The quality of the bowel preparation was good. The terminal ileum, ileocecal valve, appendiceal orifice, and rectum were photographed. Findings: The perianal and digital rectal examinations were normal. An infiltrative non-obstructing large mass was found in the sigmoid colon from 22-30 cm from the anal verge. The mass was circumferential. The mass measured eight cm in length. In addition, its diameter measured thirty mm. Oozing was present. Area was tattooed with an injection of 5 mL of Monica ink, at the proximal and distal margin. Biopsies were taken with a cold forceps for histology. Non-bleeding internal hemorrhoids were found during retroflexion. The hemorrhoids were small. Impression: - Likely malignant tumor in the sigmoid colon. Tattooed. Biopsied. - Non-bleeding internal hemorrhoids. Recommendation: - [facility] care. - NPO. - Await pathology results. - Refer to a surgeon today. Carlos Calderon, DO 04/13/2019 3:06:16 PM This report has been signed electronically. Note Initiated On: 04/13/2019 2:07 PM Number of Addenda: 0 I attest to the content of the Intraoperative Record and orders documented therein, exceptions below {[id number]}
--- NOTE | 2019-04-13 15:23 | Anesthesiology Progress Note ---
Date of Service April 13, 2019 Anesthesia Post Procedure Vital Signs Vital Signs: Temp Pulse Pulse Resp BP BP Pulse Ox 04/13/19 15:09 67 18 133/68 95 04/13/19 14:54 66 16 109/55 L 97 04/13/19 13:53 36.4 C L 74 16 174/81 H 95 04/13/19 13:25 170/80 H 04/13/19 07:37 36.8 C 70 16 187/83 H 95 04/13/19 00:00 172/86 H 04/12/19 23:15 36.5 C 69 18 181/90 H 97 Pain Intensity Head: Pain Intensity: 2 Transfer of Care Handoff Completed per policy Notes Mental Status: alert / awake / arousable and participated in evaluation Patient Amnestic to Procedure: Yes Nausea / Vomiting: adequately controlled Pain: adequately controlled Airway Patency, RR, SpO2: stable & adequate BP & HR: stable & adequate Hydration State: stable & adequate Anesthetic Complications: no major complications apparent and Pt Satisfied with anesthetic care
--- NOTE | 2019-04-13 17:24 | Hospitalist Progress Note ---
Date of Service April 13, 2019 Assessment & Plan (1) Lower GI bleed: CT a/p on 04/10 showed "6 cm segment of mild colonic wall thickening with a few prominent adjacent pericolonic lymph nodes." This was concerning for cancer, IBD, or possibly infection. - C. diff & other stool testing on 04/10 was negative - GI consulted -previously was having some darker stools (describes as melenic, black/tarry) and was started on PPI BID EGD without significant findings-can discontinue PPI Colonoscopy with large infiltrative nonobstructing large sigmoid colon mass 8 cm in length seen-biopsies taken-GI felt it was most likely malignant GI bleeding has stopped -Follow CBC in the morning -Okay for clear liquids this evening but make n.p.o. after midnight in case of surgical intervention tomorrow -Continue gentle IV fluids (2) Colonic mass: As above, appears malignant Biopsies for colonoscopy pending -Consult general surgery to see about sigmoid colectomy this admission Does have pericolonic lymph nodes GI ordered CT of the chest/abdomen/pelvis with IV and p.o. contrast for further staging in case of malignancy CEA ordered -Appreciate GI consultation -With mild left lower quadrant pain status post colonoscopy-abdomen remains soft, observe for worsening She can easily achieve at least 4 METS and is quite active. She has never had any cardiac or pulmonary issues and does not smoke or have peripheral arterial disease or some chronic kidney disease. In fact, she reports having a completely normal outpatient work-up to include echocardiogram, cardiac stress test, carotid Dopplers, and imaging of her abdomen to screen for aortic aneurysm all of which was normal in the past year approximately. This was all performed due to a strong family history of coronary artery disease and aortic aneurysms. She would be at average perioperative cardiovascular risk for a procedure such as colectomy-discussed her risk with the patient and her at the bedside. (3) Hypertension: BP mildly elevated in the setting of anxiety. - Continue lisinopril and continue to follow (4) Anxiety: Long-standing and on minimal meds from her PCP. - Continue home Xanax 0.5mg PO QHS and lorazepam as needed during the day -Continue Celexa 10 mg daily (5) Hypothyroidism: TSH was recently normal at 2.4 and 01/2019 -Continue home dose of levothyroxine 75 mcg once daily (6) DVT prophylaxis: SCDs - Holding chemoprophylaxis given bleeding Disposition-remain hospitalized, surgical evaluation pending to see if will need partial colectomy this admission Subjective Patient recently returned from EGD and colonoscopy. She reports no further blood in her stool except for in the very beginning of her colon prep yesterday evening. No nausea. She is having some very mild lower left quadrant abdominal pain since returning from colonoscopy. Denies chest pain or shortness of breath. I discussed her case with the ribbon winder. Review of Systems Review of Systems: All systems reviewed & are unremarkable except as noted in HPI & below Physical Exam Constitutional: WD/WN, vitals as above Eyes: PERRL, conjunctivae normal, anicteric sclerae ENMT: external ear and nose normal, oropharynx normal Neck: trachea midline, no thyromegaly Respiratory: normal respiratory effort, lungs clear to auscultation Cardiovascular: RRR, no murmur, no edema Gastrointestinal (Abdomen): Inspection/Auscultation: abdomen normal to inspection and normal bowel sounds; abdomen not distended Percussion /Palpation: + abdomen tender (Mild TTP in the LLQ without guarding or rebound) and abdomen soft; no guarding, abdomen not rigid, no hepatomegaly, no abdominal mass and no pulsatile mass Musculoskeletal: Extremities: extremities normal to inspection; no cyanosis and no clubbing Skin: no rashes, warm and dry Neurologic: moves all extremities and awake; no focal motor deficits Psychiatric: A+Ox3, euthymic affect Results & Data Vital Signs (Past 12 Hours) Vital Signs Temp Pulse Pulse Resp BP BP Pulse Ox 04/13/19 15:24 65 18 159/85 H 96 04/13/19 15:09 67 18 133/68 95 04/13/19 14:54 66 16 109/55 L 97 04/13/19 13:53 36.4 C L 74 16 174/81 H 95 04/13/19 13:25 170/80 H 04/13/19 07:37 36.8 C 70 16 187/83 H 95 Laboratory Results 04/13/19 04/13/19 Range/Units 17:32 07:15 WBC 5.75 (4.8-10.8) K/uL RBC 3.71 L (4.2-5.4) M/uL Hgb 11.1 L (12.0-16.0) g/dL Hct 33.5 L (37-47) % MCV 90.3 (80-100) fL MCH 29.9 (25-34) pg MCHC 33.1 (32-36) g/dL RDW Std Deviation 40.7 (36.4-46.3) fL RDW Coeff of Amador 12.5 (11.5-14.5) % Plt Count 202 (130-400) K/uL MPV 9.9 (7.4-10.4) fL Carcinoembryonic Ag 0.8 (0-2.5) ng/ml PG Care Time/CCT Total # of Minutes Spent Total Time Spent with Patient: Total time spent is greater than 50% in coordination of care (as documented) at patient's floor/unit and/or counseling patient:
[2019-04-13] MEDS ORDERED: IOVERSOL 100ml IV PRN (19:30)
--- NOTE | 2019-04-13 19:47 | CT Scan Report ---
CT chest w con CT DOSE: 692.89 mGy.cm HISTORY: Colon mass colon mass TECHNIQUE: Multiaxial CT images of the chest were performed following the intravenous administration of contrast. A dose lowering technique was utilized adhering to the principles of ALARA. COMPARISON: None. FINDINGS: The lungs are clear. The mediastinal vascular structures are within normal limits. No media stinal or hilar lymphadenopathy. No pleural effusion or pneumothorax. Limited views of the upper abdo men demonstrate a normal liver and spleen. IMPRESSION: No significant abnormality identified within the chest. The above report was generated using voice recognition software. It may contain grammatical, syntax or spelling errors. Electronically signed by: Geronimo Hackett M.D. 04/13/2019 7:45 PM
--- NOTE | 2019-04-13 19:52 | CT Scan Report ---
CT abd pelvis oral and IV con CT DOSE: HISTORY: Colon mass Colon mass TECHNIQUE: Multiaxial CT images of the abdomen and pelvis were performed following the use of intrave nous and oral contrast. A dose lowering technique was utilized adhering to the principles of ALARA. COMPARISON STUDY: 04/10/2019 FINDINGS: Lung bases remain clear. Liver spleen and pancreas are unremarkable. Mild cortical scarring of the kidneys bilaterally with no evidence for hydronephrosis. No significant periaortic or retroperitoneal adenopathy. Abdominal bowel pattern is considered nonobstructive. The 6 cm segment of moderate wall thickening of the mid sigmoid colon the extent as well as degree of colonic wall thickening is perhaps stable to minimally improved. Small pericolonic lymph nodes persi st. No free fluid within the pelvic cul-de-sac. No evidence for abscess or collection. IMPRESSION: 1. No major change compared to the prior study. 2. 6 cm length of the mid sigmoid colonic wall thickening considered stable to perhaps slightly impro cait. 3. Unchanging scattered colonic diverticuli with unchanging small pericolonic nodes as discussed prev iously. 4. No evidence for drainable abscess or collection. 5. No evidence of bowel obstructive change. The above report was generated using voice recognition software. It may contain grammatical, syntax or spelling errors. Electronically signed by: Geronimo Hackett M.D. 04/13/2019 7:51 PM
[2019-04-13] MEDS: ALPRAZolam 0.5 MG TABLET PO SCH (21:58)
[2019-04-14] MEDS: NORMOSOL-R 1,000 ML IV SCH ×3 (00:08→23:31)
[2019-04-14] MEDS: LEVOTHYROXINE SODIUM 75 MCG TABLET PO SCH (05:50)
[2019-04-14 08:15] LABS: Basophils # (auto) 0.02 K/uL (0-0.2); Basophils % (auto) 0.2 %; Eosinophils # (auto) 0.08 K/uL (0-0.5); Eosinophils % (auto) 0.9 %; Hematocrit (blood only) 32.8 % (37-47); Hemoglobin 10.8 g/dL (12.0-16.0); Immature Granulocytes # (auto) 0.02 K/uL (0.00-0.02); Immature Granulocytes % (auto) 0.2 %; Lymphocytes # (auto) 1.39 K/uL (1.2-3.4); Lymphocytes % (auto) 16.4 %; Mean Corpuscular Hgb Conc 32.9 g/dL (32-36); Mean Corpuscular Volume 90.6 fL (80-100); Mean Platelet Volume 9.8 fL (7.4-10.4); Monocytes # (auto) 0.39 K/uL (0.11-0.59); Monocytes % (auto) 4.6 %; Neutrophils % (auto) 77.7 %; Platelet Count 197 K/uL (130-400); RDW Coefficient of Variation 12.4 % (11.5-14.5); Red Blood Count 3.62 M/uL (4.2-5.4)
[2019-04-14] MEDS: POLYETHYLENE (MIRALAX) 17 GM PACK PO SCH (08:46)
[2019-04-14] MEDS: LISINOPRIL 5 MG TAB PO SCH (08:47)
[2019-04-14] MEDS: CITALOPRAM 20 MG TAB PO SCH (08:47)
[2019-04-14 08:50] LABS: BUN Creatinine Ratio 10.5 (10-20); Calcium 8.9 mg/dl (8.5-10.1); Creatinine Clr Calc Pharmacy 55.5 ml/min; Est GFR (Non-African American) 64.7; Potassium 3.9 mmol/L (3.5-5.1)
--- NOTE | 2019-04-14 09:10 | Surgery Consultation ---
Date of Consultation April 14, 2019 Assessment & Plan (1) Colon cancer: Certainly this needs to be surgically removed. We discussed her options. I suspect there is a 75% chance I can complete this laparoscopically although we discussed the possibility of needing to convert to an open procedure. We discussed the risks which would include bleeding, infection, anastomotic leak or stricture, injury to another organ such as bladder ureter or bowel, DVT, PE, GA, CVA etc. Following our discussion I answered all their questions. We will plan on laparoscopic /possible open sigmoid colectomy . Discussed with Dr. Raymond and patient is average risk for her age no further testing or work-up indicated. History of Present Illness Attending Physician: Corrina Raymond MD History of Present Illness Patient admitted to the hospital for rectal bleeding. Work-up by GI revealed a large sigmoid colon mass. Biopsies came back today positive for adenocarcinoma. CT scan of the chest abdomen pelvis shows some suspicious pericolonic lymph nodes but is otherwise negative. Allergies Allergy/AdvReac Type Severity Reaction Status Date / Time codeine Allergy Severe ANAPHYLAXIS Verified 04/13/19 13:47 paroxetine Allergy Unknown unknown Verified 04/13/19 13:47 Home Medications Home Medications Medication Instructions Recorded Confirmed Type alprazolam 0.5 mg PO HS 04/10/19 04/10/19 History citalopram 10 mg PO QAM 04/10/19 04/10/19 History levothyroxine 75 mcg PO QAM 04/10/19 04/10/19 History lisinopril 5 mg PO QAM 04/10/19 04/10/19 History polyethylene glycol 3350 17 g PO QAM 04/10/19 04/10/19 History aspirin 81 mg 04/13/19 History [id number] DAILY 04/13/19 History [Glucosamine Chondroitin PLUS] Patient History Medical History Hemorrhoids Anxiety Hypertension GERD (gastroesophageal reflux disease) Hypothyroid Surgical History History of hemorrhoidectomy History of colonoscopy History of appendectomy History of cholecystectomy Family History Brother Aneurysm Social History Preferred Language: Malawian Communication Ability: Effective Site Medical Director Required: No Beliefs That Will Affect Care: None marital status: Current Living Situation: Spouse Other Information That Helps Us Care for You: No Feels Safe at Home: Yes Safety Concerns: Feels Safe At This Time Smoking Status: Former smoker Cigarettes Per Day: 1961 Do You Dip or Chew Tobacco: No Second Hand Exposure: No Tobacco Cessation Education Requested by Patient: No Hx Alcohol Use: No Hx Substance Use: No Review of Systems Review of Systems: All systems reviewed & are unremarkable except as noted in HPI & below Physical Exam Physical Exam: gen: alert/oriented. nad Heent: Pearla. eomi Heart: RRR Lungs: CTA b/l abd: soft. nt. +bs's ext: no c/c/e Results & Data Vital Signs (Past 12 Hours) Vital Signs Temp Pulse Resp BP BP Pulse Ox 04/14/19 07:54 37.0 C 73 17 114/71 95 04/13/19 23:00 37.3 C 86 20 126/72 93
--- NOTE | 2019-04-14 09:23 | Anesthesiology Progress Note ---
Date of Service April 14, 2019 Anesthesia Post Procedure Vital Signs Vital Signs: Temp Pulse Pulse Resp BP BP Pulse Ox 04/14/19 07:54 37.0 C 73 17 114/71 95 04/13/19 23:00 37.3 C 86 20 126/72 93 04/13/19 19:59 37.2 C 04/13/19 15:24 65 18 159/85 H 96 04/13/19 15:09 67 18 133/68 95 04/13/19 14:54 66 16 109/55 L 97 04/13/19 13:53 36.4 C L 74 16 174/81 H 95 04/13/19 13:25 170/80 H Pain Intensity Head: Pain Intensity: 5 Notes Mental Status: alert / awake / arousable Patient Amnestic to Procedure: Yes Nausea / Vomiting: adequately controlled Pain: improving with treatment Airway Patency, RR, SpO2: stable & adequate BP & HR: stable & adequate Hydration State: stable & adequate Anesthetic Complications: no major complications apparent
--- NOTE | 2019-04-14 16:56 | Hospitalist Progress Note ---
Date of Service April 14, 2019 Assessment & Plan (1) Lower GI bleed: CT a/p on 04/10 showed "6 cm segment of mild colonic wall thickening with a few prominent adjacent pericolonic lymph nodes." This was concerning for cancer, IBD, or possibly infection. - C. 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, negative for mismatch repair GI bleeding has stopped, hgb slightly lower today at 10.8 which may be hemodilutional at this point -Follow CBC in the morning -continue clear liquids and can have Boost Breeze for nutrition until NPO after midnight on Sat for colectomy on -Continue gentle IV fluids (2) Colonic mass: As above, with 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 -Consult general surgery-plan for sigmoid colectomy on Does have pericolonic lymph nodes on CT but otherwise no evidence of malignancy on CT Chest/Abd/Pelvis CEA normal at 0.8 -With mild left lower quadrant pain status post colonoscopy-abdomen remains soft, observe for worsening She can easily achieve at least 4 METS and is quite active. She has never had any cardiac or pulmonary issues and does not smoke or have peripheral arterial disease or some chronic kidney disease. In fact, she reports having a completely normal outpatient work-up to include echocardiogram, cardiac stress test, carotid Dopplers, and imaging of her abdomen to screen for aortic aneurysm all of which was normal in the past year approximately. This was all performed due to a strong family history of coronary artery disease and aortic aneurysms. She would be at average perioperative cardiovascular risk for a procedure such as colectomy-discussed her risk with the patient and her at the bedside. (3) Hypertension: BP was mildly elevated in the setting of anxiety-now resolved. - Continue lisinopril and continue to follow (4) Anxiety: Long-standing and on minimal meds from her PCP. - Continue home Xanax 0.5mg PO QHS and lorazepam as needed during the day -Continue Celexa 10 mg daily (5) Hypothyroidism: TSH was recently normal at 2.4 and 01/2019 -Continue home dose of levothyroxine 75 mcg once daily (6) DVT prophylaxis: SCDs - Holding chemoprophylaxis given bleeding and upcoming surgery Disposition-remain hospitalized, plan for surgery on and then will need several days afterwards for recovery. Expect she will return home after hospitalization Subjective Still some mild LLQ pain but no bleeding, no nausea. She is tolerating clear liquids but not taking in much by mouth as she usually has to force herself to drink. She is having a mild caffeine withdrawal headache that she has had for many days-reports usually she takes caffeine pills every morning. Denies lightheadedness, denies CP or SOB. She has some muscle tension in her shoulder and neck area from the bed positioning she thinks. Is requesting a he ating pad. I discussed her case with Dr. López this AM who will do her colectomy on Review of Systems Review of Systems: All systems reviewed & are unremarkable except as noted in HPI & below Physical Exam Constitutional: WD/WN, vitals as above Eyes: PERRL, conjunctivae normal, anicteric sclerae ENMT: external ear and nose normal, oropharynx normal Neck: trachea midline, no thyromegaly Respiratory: normal respiratory effort, lungs clear to auscultation Cardiovascular: RRR, no murmur, no edema Gastrointestinal (Abdomen): Inspection/Auscultation: abdomen normal to inspection and normal bowel sounds; abdomen not distended Percussion/Palpation: + abdomen tender (Mild TTP in the LLQ without guarding or rebound) and abdomen soft; no guarding, abdomen not rigid, no hepatomegaly, no abdominal mass and no pulsatile mass Musculoskeletal: Spine: + cervical muscular tenderness (and mild +TTP bilateral trapezius); no cervical spasm Extremities: extremities normal to inspection; no cyanosis and no clubbing Skin: no rashes, warm and dry Neurologic: moves all extremities and awake; no focal motor deficits Psychiatric: A+Ox3, euthymic affect Results & Data Vital Signs (Past 12 Hours) Vital Signs Temp Pulse Pulse Resp BP Pulse Ox 04/14/19 15:43 37.3 C 77 18 132/74 96 04/14/19 07:54 37.0 C 73 17 114/71 95 Laboratory Results 04/14/19 04/14/19 04/13/19 Range/Units 07:53 07:53 17:32 WBC 8.50 (4.8-10.8) K/uL RBC 3.62 L (4.2-5.4) M/uL Hgb 10.8 L (12.0-16.0) g/dL Hct 32.8 L (37-47) % MCV 90.6 (80-100) fL MCH 29.8 (25-34) pg MCHC 32.9 (32-36) g/dL RDW Std Deviation 41.0 (36.4-46.3) fL RDW Coeff of Amador 12.4 (11.5-14.5) % Plt Count 197 (130-400) K/uL MPV 9.8 (7.4-10.4) fL Immature Gran % (Auto) 0.2 % Neut % (Auto) 77.7 % Lymph % (Auto) 16.4 % Beadle % (Auto) 4.6 % Eos % (Auto) 0.9 % Baso % (Auto) 0.2 % Immature Gran # (Auto) 0.02 (0.00-0.02) K/uL Neut # (Auto) 6.60 H (1.4-6.5) K/uL Lymph # (Auto) 1.39 (1.2-3.4) K/uL Beadle # (Auto) 0.39 (0.11-0.59) K/uL Eos # (Auto) 0.08 (0-0.5) K/uL Baso # (Auto) 0.02 (0-0.2) K/uL Sodium 141 (136-145) mmol/L Potassium 3.9 (3.5-5.1) mmol/L Chloride 108 H (98-107) mmol/L Carbon Dioxide 29 (21-32) mmol/L Anion Gap 5.0 (3-11) BUN 9 (7-18) mg/dl Creatinine 0.87 (0.6-1.2) mg/dl Est Cr Clr Drug Dosing 55.5 ml/min Est GFR ( Amer) 75.0 Est GFR (Non-Af Amer) 64.7 BUN/Creatinine Ratio 10.5 (10-20) Glucose 100 H (70-99) mg/dl Calcium 8.9 (8.5-10.1) mg/dl Carcinoembryonic Ag 0.8 (0-2.5) ng/ml PG Care Time/CCT Total # of Minutes Spent Total Time Spent with Patient: Total time spent is greater than 50% in coordination of care (as documented) at patient's floor/unit and/or counseling patient:
[2019-04-14] MEDS: ALPRAZolam 0.5 MG TABLET PO SCH (22:02)
[2019-04-15] MEDS: LEVOTHYROXINE SODIUM 75 MCG TABLET PO SCH (06:38)
[2019-04-15] MEDS: POLYETHYLENE (MIRALAX) 17 GM PACK PO SCH (08:10)
[2019-04-15] MEDS: CITALOPRAM 20 MG TAB PO SCH (08:12)
[2019-04-15] MEDS: LISINOPRIL 5 MG TAB PO SCH (08:13)
--- NOTE | 2019-04-15 09:44 | Surgery Progress Note ---
Date of Service April 15, 2019 Assessment & Plan (1) Colon cancer: discussed her pathology report. discussed surgery again with her , her and daughter. will attempt laparoscopy with option of open surgery re-discussed primary risks questions answered plan OR tomorrow. Subjective pt with no new complaints/feeling well. Physical Exam Physical Exam: alert/oriented. nad abd: soft. nt. no palpable masses. Results & Data Vital Signs (Past 12 Hours) Vital Signs Temp Pulse Resp BP Pulse Ox 04/15/19 07:42 36.8 C 68 18 148/83 H 94 04/14/19 23:00 36.8 C 64 20 120/73 96
--- NOTE | 2019-04-15 10:32 | Anesthesiology Consultation ---
Date of Service April 15, 2019 Assessment & Plan (1) Encounter for pre-operative examination: Chart Review Chart Review: Acceptable Risk for Surgery and Patient NOT seen in Pre Admission Testing Consults Requested none medicine is following the patient History Surgery Operation Date: 04/13/19 08:30 Proposed Procedures p Colonoscopy EGD Dr. Calderon - Carlos Calderon DO Operation Date: 04/16/19 12:35 Proposed Procedures p Laparoscopic Sigmoid Colectomy - Vern López, Height/Weight Height: 5 ft 4 in Weight: 77.6 kg Allergies Allergy/AdvReac Type Severity Reaction Status Date / Time codeine Allergy Severe ANAPHYLAXIS Verified 04/13/19 13:47 paroxetine Allergy Unknown unknown Verified 04/13/19 13:47 Medications Home Medications Medication Instructions Recorded Confirmed Last Taken alprazolam 0.5 mg PO HS 04/10/19 04/10/19 04/12/19 citalopram 10 mg PO QAM 04/10/19 04/10/19 04/13/19 levothyroxine 75 mcg PO QAM 04/10/19 04/10/19 04/13/19 lisinopril 5 mg PO QAM 04/10/19 04/10/19 04/13/19 polyethylene glycol 3350 17 g PO QAM 04/10/19 04/10/19 04/12/19 aspirin 81 mg 04/13/19 04/08/19 [id number] DAILY 04/13/19 04/12/19 [Glucosamine Chondroitin PLUS] Active Medications Generic Name Dose Route Start Last Admin Trade Name Freq PRN Reason Stop Dose Admin Acetaminophen 650 mg 04/10/19 11:26 04/13/19 18:50 Tylenol PO 05/10/19 11:25 650 mg Q4H PRN Administration pain/fever Alprazolam 0.5 mg 04/10/19 21:00 04/14/19 22:02 Xanax PO 05/10/19 20:59 0.5 mg HS GISSELL Administration Citalopram Hydrobromide 10 mg 04/11/19 09:00 04/15/19 08:12 Celexa PO 05/11/19 08:59 10 mg QAM GISSELL Administration Parenteral Electrolytes 1,000 mls @ 80 mls/hr 04/12/19 21:00 04/14/19 23:31 Normosol-R IV 05/12/19 20:59 80 mls/hr .[id number] GISSELL Administration Ioversol 90 ml 04/13/19 19:30 04/13/19 19:39 Optiray 320 100ml IV 04/17/19 19:29 90 ml ONCE PRN Administration Interaction Checking Levothyroxine Sodium 75 mcg 04/11/19 06:30 04/15/19 06:38 Synthroid PO 05/11/19 06:29 75 mcg DAILYBB GISSELL Administration Lisinopril 5 mg 04/10/19 11:26 04/15/19 08:13 Zestril PO 05/10/19 11:25 5 mg QAM GISSELL Administration Lorazepam 0.5 mg 04/10/19 11:26 04/12/19 23:35 Ativan PO 05/10/19 11:25 0.5 mg TID PRN Administration Anxiety Polyethylene Glycol 17 gm 04/11/19 09:00 04/15/19 08:10 Miralax Powder Packet PO 05/11/19 08:59 17 gm QAM GISSELL Administration NPO Date Last Intake of Fluids: 04/13/19 Time Last Intake of Fluids: 00:05 Last Intake of Fluids Comment: allowed sips/ice chips. Date Last Intake of Solids: 04/12/19 Time Last Intake of Solids: 10:00 Last Intake of Solids Comment: prior to shift. Past Medical History Medical History Hemorrhoids Anemia Anxiety Hypertension Lower GI bleed GERD (gastroesophageal reflux disease) Hypothyroid Past Family History Family History Brother Aneurysm Past Surgical History Surgical History History of hemorrhoidectomy History of colonoscopy History of appendectomy History of cholecystectomy History of esophagogastroduodenoscopy (EGD) Social History Smoking Status: Former smoker Smoking cigarettes per day: 1961 Do You Dip or Chew Tobacco: No Hx Alcohol Use: No Hx Substance Use: No substance use type: does not use Physical Exam Vital Signs Last Vital Signs Temp 36.8 C 04/15/19 07:42 Pulse 68 04/15/19 07:42 Resp 18 04/15/19 07:42 BP 148/83 H 04/15/19 07:42 Pulse Ox 94 04/15/19 07:42 Testing Laboratory Results 04/14/19 07:53 04/14/19 07:53 PT 10.1 Seconds (9.0-12.0) 04/10/19 07:49 INR 1.0 (0.9-1.1) 04/10/19 07:49 APTT 25.4 Seconds (21.0-31.0) 04/10/19 07:49 Blood Type A Positive 04/10/19 07:49 Antibody Screen POSITIVE A 04/10/19 07:49 04/10/19 18:41 WBC Smear - Final Stool Shiga Toxin Test - Final Stool Culture - Final No Salmonella isolated, No Shigella isolated, No Campylobacter jejuni isolated. Electrocardiogram Date: 04/10/19 Findings: + NSR @ (80) and + NSST changes Echocardiogram Date: 08/26/18 EF: 65-70 Other Findings: + LVH (borderline) and + diastolic dysfunction (grade 1) Valvular Disease: + MR (mild) Other Testing [place], [place] [phone] CT Scan Report Patient: GUANACO PETERSON Date: 04/10/19 MR#: [id number]: [address] Acct ID:[id number]: [address] Date: [address] [place] [address] Zip: [place] [address] Age: 78Location: 4E Sex: F Room/Bed: [facility] Att Phy: Corrina Raymond, MDDiagnosis: GI BLEED Jud Phy: Amado Nunes M.D.Service Date: 04/13/19 Fam Phy: Interpreting Phy: Geronimo Hackett MD Admit Phy: Dani Olivares MD Ordering Phy: Carlos Calderon, DO cc: ~ CT chest w con CT DOSE: 692.89 mGy.cm HISTORY: Colon mass colon mass TECHNIQUE: Multiaxial CT images of the chest were performed following the intravenous administration of contrast. A dose lowering technique was utilized adhering to the principles of ALARA. COMPARISON: None. FINDINGS: The lungs are clear. The mediastinal vascular structures are within normal limits. No mediastinal or hilar lymphadenopathy. No pleural effusion or pneumothorax. Limited views of the upper abdomen demonstrate a normal liver and spleen. IMPRESSION: No significant abnormality identified within the chest. The above report was generated using voice recognition software. It may contain grammatical, syntax or spelling errors.
[2019-04-15 10:47] LABS: Basophils # (auto) 0.01 K/uL (0-0.2); Basophils % (auto) 0.2 %; Eosinophils # (auto) 0.14 K/uL (0-0.5); Eosinophils % (auto) 3.1 %; Hematocrit (blood only) 30.4 % (37-47); Hemoglobin 10.3 g/dL (12.0-16.0); Lymphocytes # (auto) 1.16 K/uL (1.2-3.4); Lymphocytes % (auto) 26.1 %; Mean Corpuscular Hgb Conc 33.9 g/dL (32-36); Mean Corpuscular Volume 91.8 fL (80-100); Mean Platelet Volume 9.5 fL (7.4-10.4); Monocytes # (auto) 0.22 K/uL (0.11-0.59); Monocytes % (auto) 4.9 %; Neutrophils # (auto) 2.92 K/uL (1.4-6.5); Neutrophils % (auto) 65.7 %; Platelet Count 177 K/uL (130-400); RDW Coefficient of Variation 12.4 % (11.5-14.5); RDW Standard Deviation 41.9 fL (36.4-46.3); Red Blood Count 3.31 M/uL (4.2-5.4); White Blood Count 4.45 K/uL (4.8-10.8)
[2019-04-15] MEDS: NORMOSOL-R 1,000 ML IV SCH (12:56)
--- NOTE | 2019-04-15 20:23 | Hospitalist Progress Note ---
Date of Service April 15, 2019 Assessment & Plan (1) Lower GI bleed: CT a/p on 04/10 showed "6 cm segment of mild colonic wall thickening with a few prominent adjacent pericolonic lymph nodes." This was concerning for cancer, IBD, or possibly infection. - C. 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, negative for mismatch repair GI bleeding has stopped, hgb slightly lower again today at 10.3 some of which may be hemodilutional she has had no obvious bleeding since admission -Follow CBC in the morning -continue clear liquids and can have Boost Breeze for nutrition until NPO after midnight tonight for colectomy on -Continue gentle IV fluids (2) Colonic mass: As above, with 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 -Consult general surgery-plan for sigmoid colectomy on Does have pericolonic lymph nodes on CT but otherwise no evidence of malignancy on CT Chest/Abd/Pelvis CEA normal at 0.8 -With mild left lower quadrant pain status post colonoscopy-now improved and only minimally tender on examination She can easily achieve at least 4 METS and is quite active. She has never had any cardiac or pulmonary issues and does not smoke or have peripheral arterial disease or some chronic kidney disease. In fact, she reports having a completely normal outpatient work-up to include echocardiogram, cardiac stress test, carotid Dopplers, and imaging of her abdomen to screen for aortic aneurysm all of which was normal in the past year approximately. This was all performed due to a strong family history of coronary artery disease and aortic aneurysms. She would be at average perioperative cardiovascular risk for a procedure such as colectomy-discussed her risk with the patient and her at the bedside. (3) Hypertension: BP continues to be intermittently mildly elevated in the setting of anxiety - Continue lisinopril and continue to follow (4) Anxiety: Long-standing and on minimal meds from her PCP. - Continue home Xanax 0.5mg PO QHS and lorazepam as needed during the day -Continue Celexa 10 mg daily-would be okay to hold while n.p.o. after surgery (5) Hypothyroidism: TSH was recently normal at 2.4 and 01/2019 -Continue home dose of levothyroxine 75 mcg once daily and can always convert to IV if not taking p.o. after surgery (6) DVT prophylaxis: SCDs - Holding chemoprophylaxis given bleeding and upcoming surgery, but will likely start heparin SQ or Lovenox immediately postoperatively Disposition-remain hospitalized, plan for surgery on and then will need several days afterwards for recovery. Expect she will return home after hospitalization Subjective Patient has no complaints. She had a small yellow bowel movement today without any blood. No more left lower quadrant abdominal pain. Denies chest pain or shortness of breath. She has been ambulating without difficulty. No nausea and has been tolerating clear liquids diet. Review of Systems Review of Systems: All systems reviewed & are unremarkable except as noted in HPI & below Physical Exam Constitutional: WD/WN, vitals as above Eyes: PERRL, conjunctivae normal, anicteric sclerae ENMT: external ear and nose normal, oropharynx normal Neck: trachea midline, no thyromegaly Respiratory: normal respiratory effort, lungs clear to auscultation Cardiovascular: RRR, no murmur, no edema Gastrointestinal (Abdomen): Inspection/Auscultation: abdomen normal to inspection and normal bowel sounds; abdomen not distended Percussion/Palpati on: + abdomen tender (Mild TTP in the LLQ without guarding or rebound) and abdomen soft; no guarding, abdomen not rigid, no hepatomegaly, no abdominal mass and no pulsatile mass Musculoskeletal: Spine: + cervical muscular tenderness (and mild +TTP bilateral trapezius); no cervical spasm Extremities: extremities normal to inspection; no cyanosis and no clubbing Skin: no rashes, warm and dry Neurologic: moves all extremities and awake; no focal motor deficits Psychiatric: A+Ox3, euthymic affect Results & Data Vital Signs (Past 12 Hours) Vital Signs Temp Pulse Resp BP Pulse Ox 04/15/19 15:37 37.5 C 63 18 152/84 H 93 Laboratory Results 04/15/19 04/15/19 Range/Units 12:55 10:37 WBC 4.45 L (4.8-10.8) K/uL RBC 3.31 L (4.2-5.4) M/uL Hgb 10.3 L (12.0-16.0) g/dL Hct 30.4 L (37-47) % MCV 91.8 (80-100) fL MCH 31.1 (25-34) pg MCHC 33.9 (32-36) g/dL RDW Std Deviation 41.9 (36.4-46.3) fL RDW Coeff of Amador 12.4 (11.5-14.5) % Plt Count 177 (130-400) K/uL MPV 9.5 (7.4-10.4) fL Immature Gran % (Auto) 0.0 % Neut % (Auto) 65.7 % Lymph % (Auto) 26.1 % Posey % (Auto) 4.9 % Eos % (Auto) 3.1 % Baso % (Auto) 0.2 % Immature Gran # (Auto) 0.00 (0.00-0.02) K/uL Neut # (Auto) 2.92 (1.4-6.5) K/uL Lymph # (Auto) 1.16 L (1.2-3.4) K/uL Posey # (Auto) 0.22 (0.11-0.59) K/uL Eos # (Auto) 0.14 (0-0.5) K/uL Baso # (Auto) 0.01 (0-0.2) K/uL Blood Type A Positive Antibody Screen POSITIVE A Antibody Identification Anti-K Crossmatch See Detail PG Care Time/CCT Total # of Minutes Spent Total Time Spent with Patient: Total time spent is greater than 50% in coordination of care (as documented) at patient's floor/unit and/or counseling patient:
[2019-04-15] MEDS: ALPRAZolam 0.5 MG TABLET PO SCH (22:01)
[2019-04-16] MEDS: NORMOSOL-R 1,000 ML IV SCH ×2 (01:00→18:14)
[2019-04-16 05:55] LABS: Basophils # (auto) 0.02 K/uL (0-0.2); Basophils % (auto) 0.4 %; Eosinophils # (auto) 0.21 K/uL (0-0.5); Eosinophils % (auto) 4.3 %; Hematocrit (blood only) 29.9 % (37-47); Hemoglobin 10.1 g/dL (12.0-16.0); Lymphocytes # (auto) 1.36 K/uL (1.2-3.4); Lymphocytes % (auto) 27.5 %; Mean Corpuscular Hgb Conc 33.8 g/dL (32-36); Mean Corpuscular Volume 89.8 fL (80-100); Mean Platelet Volume 9.8 fL (7.4-10.4); Monocytes # (auto) 0.28 K/uL (0.11-0.59); Monocytes % (auto) 5.7 %; Neutrophils # (auto) 3.07 K/uL (1.4-6.5); Neutrophils % (auto) 62.1 %; Platelet Count 187 K/uL (130-400); RDW Coefficient of Variation 12.4 % (11.5-14.5); RDW Standard Deviation 40.2 fL (36.4-46.3); Red Blood Count 3.33 M/uL (4.2-5.4); White Blood Count 4.94 K/uL (4.8-10.8)
[2019-04-16] MEDS: LEVOTHYROXINE SODIUM 75 MCG TABLET PO SCH (06:15)
[2019-04-16 06:40] LABS: BUN Creatinine Ratio 10.1 (10-20); Calcium 8.3 mg/dl (8.5-10.1); Est GFR (African American) 94.3; Est GFR (Non-African American) 81.3; Potassium 3.8 mmol/L (3.5-5.1)
[2019-04-16] MEDS ORDERED: ACETAMINOPHEN 1000 MG/100 ML IV IV ONE (06:46)
[2019-04-16] MEDS: LISINOPRIL 5 MG TAB PO SCH (07:50)
[2019-04-16] MEDS: CITALOPRAM 20 MG TAB PO SCH (07:50)
[2019-04-16] MEDS: POLYETHYLENE (MIRALAX) 17 GM PACK PO SCH (07:54)
[2019-04-16] MEDS ORDERED: PROPOFOL IV EMULSION 10 MG/ML 20 ML VIAL IV ONE (10:25)
[2019-04-16] MEDS ORDERED: ONDANSETRON INJ 2 MG/ML 2 ML VIAL ONE (10:25)
[2019-04-16] MEDS ORDERED: fentaNYL citrate 100 MCG/2 ML VIAL ONE ×2 (10:25→13:13)
[2019-04-16] MEDS ORDERED: DEXAMETHASONE SOD INJ 4 MG/ML VIAL ONE (10:25)
[2019-04-16] MEDS ORDERED: LIDOCAINE HCL 2% 2 ML VIAL/AMP(20MG/ML) INFIL ONE (10:25)
--- NOTE | 2019-04-16 11:43 | History & Physical Bridge Note ---
Date of Service April 16, 2019 History & Physical Bridge Note I have examined the patient, reviewed the History & Physical and in the interval since the performance of the History & Physical I have noted the following changes of clinical significance: no changes noted
[2019-04-16] MEDS ORDERED: BUPIVACAINE/EPINEPHRINE 0.5% MPF 1:200,000 30 ML VIAL ONE (11:54)
[2019-04-16] MEDS ORDERED: ONDANSETRON INJ 2 MG/ML 2 ML VIAL IV PRN (11:59)
[2019-04-16] MEDS ORDERED: KETOROLAC TROMETHAMINE 15 MG/ML VIAL IV PRN (11:59)
[2019-04-16] MEDS ORDERED: ATROPINE SULFATE 0.1 MG/ML 10ML SYR IV PRN (11:59)
[2019-04-16] MEDS ORDERED: CEFAZOLIN 2,000 MG/15 ML IV PUSH IV ONE (12:11)
[2019-04-16] MEDS ORDERED: CEFAZOLIN 2000MG 2,000 MG/15 ML SYR IV ONE (12:12)
[2019-04-16] MEDS ORDERED: GLYCOPYRROLATE 0.2 MG/ML VIAL ONE (13:03)
[2019-04-16] MEDS ORDERED: KETAMINE HCL INJ 50 MG/ML 10 ML VIAL ONE (13:04)
--- NOTE | 2019-04-16 14:27 | Operative Report ---
Post Operative Report Pre & Post Diagnosis Operation Date: 04/13/19 08:30 Pre-Op Diagnosis: GI BLEED Post-Op Diagnosis: Hiatal hernia; sigmoid colon mass Operation Date: 04/16/19 12:35 Pre-Op Diagnosis: Colon Cancer Post-Op Diagnosis: Colon Cancer; Adhesions Procedure Operation Date: 04/13/19 08:30 Actual Procedures p Colonoscopy Biopsy Cytology - Carlos MarianoRadha Case, DO s Esophagogastroduodenoscopy - Carlos Tian Case, DO Operation Date: 04/16/19 12:35 Actual Procedures p Laparoscopic Sigmoid Colectomy; enterolysis- Vern López DO Surgeon Vern López DO Material Assembler merle Miranda Estimated Blood Loss 5 Findings Consistent with Post-Op Diagnosis Specimens sigmoid colon Description of Procedure After informed consent was obtained the patient was taken to the operating room and placed in supine position. After successful intubation a Callahan catheter was placed and the patient was placed in a low lithotomy position. The abdomen and perineum were sterilely prepped and draped in usual fashion. We began with a supraumbilical incision with an 11 blade scalpel and carried this down through the soft tissue using cautery. The anterior rectus fascia was opened using electrocautery and two #0 Vicryl stay sutures were placed. Peritoneum was entered using blunt finger penetration and a finger sweep performed to take down adhesions. A 12 mm Hare trocar was placed and the abdomen was insufflated to 18 mmHg. A laparoscope was inserted. The upper abdomen had dense adhesions as well as the right lower quadrant. We were able to place a left lower quadrant 5 mm trocar and used a harmonic scalpel to take down the adhesions in the midline and right lower quadrant. After doing this I was able to place a right lower quadrant 12 mm trocar and a right mid abdominal 5 mm trocar. The patient was placed in a Trendelenburg position and slightly air planed to the right. I began by running the colon from the rectum proximally. She had an extremely redundant loose and floppy sigmoid colon. Eventually we were able to identify the tattoos around the area of the tumor and in fact I was able to palpate the tumor with graspers. This tumor was right in the middle of several feet of floppy sigmoid colon that would require me taking several feet of viable bowel unnecessarily in order to perform a transanal anastomosis. Therefore I decided that we would deliver the bowel out of an incision and perform the procedure externally. We able to grab the colon in the area of the tumor and pulled up to the left lower quadrant port site. We then extended this port site several centimeters medially and several centimeters area we opened the fascia and placed towels around the wound to protect it. We we are able to easily deliver several feet of colon externally without taking down the mesentery. I used a FREYA brown cartridge linear stapler to transect the colon several inches proximal to the tumor and then repeated this maneuver by stapling off the colon several inches distal to the tumor. I make sure that I had at least 6 to 8 cm margins of viable bowel on either side of the palpable mass. We then used the LigaSure device to take down the mesentery as low as we could. Once I removed the specimen I opened it on the back table to ensure that we had the mass with adequate margins and grossly it appeared that we did. I then changed my gloves. Next we performed a side to side anastomosis using a FREYA brown cartridge linear stapler. The common enterotomy was closed using a TA 60 stapler. 3-[address] a crotch stitch as well as to oversew the staple lines. We did this in Lembert fashion. We used 3-0 Vicryl in a running fashion to close the mesenteric defect. The anastomosis was patent and viable with no evidence of ischemia. We placed this back into the abdominal cavity and then changed our gloves again. We closed the fascia using 0 PDS in running fashion. Next we reinsufflated the abdomen. I ran the bowel proximal to the anastomosis as well as distal to the anastomosis. It laid without any tension and was not twisted. Again there was no evidence of ischemia. I did look around the abdomen and other than adhesions in the right upper quadrant I was unable to identify any ot her gross abnormalities. A 10 flat Ken-Baum drain was placed in the pelvis and brought out through 1 of the port sites and was secured using 3-0 nylon. All the trochars were removed and the abdomen desufflated. Fascia the camera port was closed using 0 Vicryl in a iweajr-nr-bueta fashion. The wounds were all thoroughly irrigated. The larger wound was closed with 3-0 Vicryl for deep layers and 4-0 Monocryl for skin. The port sites were closed using 4-0 Monocryl. Marcaine was injected around them for postoperative analgesia and skin glue used as a dressing. The patient was awakened extubated and transferred recovery in stable condition. My physician data assistant was present the entire case. He helped prep the patient. He helped run the camera. He helped with retraction. He assisted with the anastomosis as well as wound closure. I attest to the content of the Intraoperative Record and any orders documented therein. Any exceptions are noted below.
[2019-04-16] MEDS: HYDROmorphone INJ 1 MG/ML SYRINGE IV PRN ×2 (14:34→14:39)
--- NOTE | 2019-04-16 14:48 | Anesthesiology Progress Note ---
Date of Service April 16, 2019 Anesthesia Post Procedure Vital Signs Vital Signs: Temp Pulse Pulse Pulse Resp BP BP 04/16/19 14:40 53 L 14 153/66 H 04/16/19 14:30 53 L 16 167/71 H 04/16/19 14:20 54 L 12 159/66 H 04/16/19 14:13 36.6 C 58 L 15 170/70 H 04/16/19 11:45 37 C 64 20 L 20 184/98 H 04/16/19 07:00 36.7 C 73 20 169/78 H 04/15/19 23:10 36.6 C 64 18 147/77 H 04/15/19 15:37 37.5 C 63 18 152/84 H Pulse Ox 04/16/19 14:40 99 04/16/19 14:30 99 04/16/19 14:20 97 04/16/19 14:13 94 04/16/19 11:45 04/16/19 07:00 95 04/15/19 23:10 95 04/15/19 15:37 93 Pain Intensity Head: Pain Intensity: 0 Abdomen: Pain Intensity: 5 Transfer of Care Handoff Completed per policy Notes Mental Status: alert / awake / arousable Patient Amnestic to Procedure: Yes Nausea / Vomiting: adequately controlled Pain: adequately controlled Airway Patency, RR, SpO2: stable & adequate BP & HR: stable & adequate Hydration State: stable & adequate Anesthetic Complications: no major complications apparent
[2019-04-16] MEDS ORDERED: MoRPHine SULFATE 4 MG/ML 1 ML CARP\\VIAL IV PRN (16:10)
[2019-04-16] MEDS: LACTATED RINGER'S 1,000 ML IV SCH (17:55)
--- NOTE | 2019-04-16 20:01 | Hospitalist Progress Note ---
Date of Service April 16, 2019 Assessment & Plan (1) Lower GI bleed: CT a/p on 04/10 showed "6 cm segment of mild colonic wall thickening with a few prominent adjacent pericolonic lymph nodes." This was concerning for cancer, IBD, or possibly infection. - C. 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, negative for mismatch repair GI bleeding has stopped, hgb stable at 10.1 but lower than upon admission some of which may be hemodilutional she has had no obvious bleeding since admission -Follow CBC in the morning -Plans for colectomy today -Continue gentle IV fluids (2) Colonic mass: As above, with INVASIVE MODERATELY DIFFERENTIATED ADENOCARCINOMA from co lonoscopy bx -Consult general surgery-plan for sigmoid colectomy on Does have pericolonic lymph nodes on CT but otherwise no evidence of malignancy on CT Chest/Abd/Pelvis CEA normal at 0.8 She can easily achieve at least 4 METS and is quite active. She has never had any cardiac or pulmonary issues and does not smoke or have peripheral arterial disease or some chronic kidney disease. In fact, she reports having a completely normal outpatient work-up to include echocardiogram, cardiac stress test, carotid Dopplers, and imaging of her abdomen to screen for aortic aneurysm all of which was normal in the past year approximately. This was all performed due to a strong family history of coronary artery disease and aortic aneurysms. She would be at average perioperative cardiovascular risk for a procedure such as colectomy-discussed her risk with the patient and her at the bedside. (3) Hypertension: BP continues to be intermittently mildly elevated in the setting of anxiety - Continue lisinopril and continue to follow (4) Anxiety: Long-standing and on minimal meds from her PCP. - Continue home Xanax 0.5mg PO QHS and lorazepam as needed during the day -Continue Celexa 10 mg daily-would be okay to hold while n.p.o. after surgery (5) Hypothyroidism: TSH was recently normal at 2.4 and 01/2019 -Continue home dose of levothyroxine 75 mcg once daily and can always convert to IV if not taking p.o. after surgery (6) DVT prophylaxis: SCDs - Holding chemoprophylaxis given bleeding and upcoming surgery, but will likely start heparin SQ or Lovenox immediately postoperatively Disposition-remain hospitalized, plan for surgery today and then will need several days afterwards for recovery. Expect she will return home after hospitalization Subjective I saw the patient preoperatively this morning. She is doing very well, no abdominal pain no nausea, no chest pain or shortness of breath, no leg swelling. Has been ambulating. She is ready for her surgery. Review of Systems Review of Systems: All systems reviewed & are unremarkable except as noted in HPI & below Physical Exam Constitutional: WD/WN, vitals as above Eyes: PERRL, conjunctivae normal, anicteric sclerae ENMT: external ear and nose normal, oropharynx normal Neck: trachea midline, no thyromegaly Respiratory: normal respiratory effort, lungs clear to auscultation Cardiovascular: RRR, no murmur, no edema Gastrointestinal (Abdomen): Inspection/Auscultation: abdomen normal to inspection and normal bowel sounds; abdomen not distended Percussion/Palpation: abdomen soft Musculoskeletal: Extremities: extremities normal to inspection; no cyanosis and no clubbing Skin: no rashes, warm and dry Neurologic: moves all extremities and awake; no focal motor deficits Psychiatric: A+Ox3, euthymic affect Results & Data Vital Signs (Past 12 Hours) Vital Signs Temp Pulse Pulse Pulse Resp BP BP 04/16/19 18:40 36.7 C 63 17 162/67 H 04/16/19 17:51 36.8 C 68 17 146/72 H 04/16/19 17:07 36.3 C L 04/16/19 17:04 35.7 C L 64 16 138/75 04/16/19 16:21 36.6 C 57 L 150/74 H 04/16/19 15:50 36.3 C L 61 14 152/72 H 04/16/19 15:30 61 14 142/71 H 04/16/19 15:15 56 L 13 143/65 H 04/16/19 15:00 57 L 18 158/70 H 04/16/19 14:50 37 C 57 L 12 162/70 H 04/16/19 14:40 53 L 14 153/66 H 04/16/19 14:30 53 L 16 167/71 H 04/16/19 14:20 54 L 12 159/66 H 04/16/19 14:13 36.6 C 58 L 15 170/70 H 04/16/19 11:45 37 C 64 20 L 20 184/98 H Pulse Ox 04/16/19 18:40 95 04/16/19 17:51 93 04/16/19 17:07 04/16/19 17:04 93 04/16/19 16:21 97 04/16/19 15:50 95 04/16/19 15:30 95 04/16/19 15:15 95 04/16/19 15:00 98 04/16/19 14:50 99 04/16/19 14:40 99 04/16/19 14:30 99 04/16/19 14:20 97 04/16/19 14:13 94 04/16/19 11:45 Laboratory Results Hemoglobin 10.1 BMP normal PG Care Time/CCT Total # of Minutes Spent Total Time Spent with Patient: Total time spent is greater than 50% in coordination of care (as documented) at patient's floor/unit and/or counseling patient:
[2019-04-16] MEDS: CEFAZOLIN 2000MG 2,000 MG/15 ML SYR IV SCH (20:26)
[2019-04-16] MEDS: ALPRAZolam 0.5 MG TABLET PO SCH (21:22)
[2019-04-16] MEDS: ACETAMINOPHEN 1,000 MG/100 ML VIAL IV PRN (23:51)
[2019-04-17] MEDS: LACTATED RINGER'S 1,000 ML IV SCH ×3 (02:35→20:54)
[2019-04-17] MEDS: CEFAZOLIN 2000MG 2,000 MG/15 ML SYR IV SCH ×2 (03:20→12:03)
[2019-04-17] MEDS: MoRPHine SULFATE 2 MG/ML CARP IV PRN ×2 (03:21→17:53)
[2019-04-17] MEDS: LEVOTHYROXINE SODIUM 75 MCG TABLET PO SCH (06:07)
[2019-04-17 07:17] LABS: BUN Creatinine Ratio 12.4 (10-20); Calcium 8.4 mg/dl (8.5-10.1); Creatinine Clr Calc Pharmacy 59.6 ml/min; Est GFR (African American) 81.8; Est GFR (Non-African American) 70.5; Potassium 4.2 mmol/L (3.5-5.1)
[2019-04-17] MEDS: CITALOPRAM 20 MG TAB PO SCH (07:45)
[2019-04-17] MEDS: ENOXAPARIN INJ 40 MG/0.4 ML SYR SQ SCH (07:46)
--- NOTE | 2019-04-17 07:55 | Surgery Progress Note ---
Date of Service April 17, 2019 Assessment & Plan (1) Colon cancer: POD 1 lap sigmoid colectomy d/c sheets start clears ambulate Lovenox to start this AM as above. doing great so far KARLOS serous increase activity. Subjective no nausea, pain controlled Physical Exam Gastrointestinal (Abdomen): Inspection/Auscultation: + abdominal surgical incision (clean, dry) and + abdominal surgical drain present (65 cc serous); abdomen not distended Percussion/Palpation: abdomen soft Results & Data Vital Signs (Past 12 Hours) Vital Signs Temp Pulse Resp BP Pulse Ox 04/17/19 07:15 37 C 62 16 123/51 L 98 04/17/19 03:19 37.0 C 57 L 16 152/69 H 92 04/16/19 23:07 37.0 C 66 15 123/68 90
[2019-04-17 08:31] LABS: Basophils # (auto) 0.01 K/uL (0-0.2); Basophils % (auto) 0.1 %; Eosinophils # (auto) 0.01 K/uL (0-0.5); Eosinophils % (auto) 0.1 %; Hematocrit (blood only) 28.9 % (37-47); Hemoglobin 9.7 g/dL (12.0-16.0); Immature Granulocytes # (auto) 0.02 K/uL (0.00-0.02); Immature Granulocytes % (auto) 0.2 %; Lymphocytes # (auto) 1.29 K/uL (1.2-3.4); Lymphocytes % (auto) 14.4 %; Mean Corpuscular Hgb Conc 33.6 g/dL (32-36); Mean Platelet Volume 10.5 fL (7.4-10.4); Monocytes # (auto) 0.48 K/uL (0.11-0.59); Monocytes % (auto) 5.4 %; Neutrophils # (auto) 7.15 K/uL (1.4-6.5); Neutrophils % (auto) 79.8 %; Platelet Count 229 K/uL (130-400); RDW Coefficient of Variation 12.3 % (11.5-14.5); Red Blood Count 3.21 M/uL (4.2-5.4); White Blood Count 8.96 K/uL (4.8-10.8)
--- NOTE | 2019-04-17 10:38 | Anesthesiology Progress Note ---
Date of Service April 17, 2019 Anesthesia Post Procedure Vital Signs Vital Signs: Temp Pulse Pulse Pulse Resp BP BP 04/17/19 07:15 37 C 62 16 123/51 L 04/17/19 03:19 37.0 C 57 L 16 152/69 H 04/16/19 23:07 37.0 C 66 15 123/68 04/16/19 18:40 36.7 C 63 17 162/67 H 04/16/19 17:51 36.8 C 68 17 146/72 H 04/16/19 17:07 36.3 C L 04/16/19 17:04 35.7 C L 64 16 138/75 04/16/19 16:21 36.6 C 57 L 150/74 H 04/16/19 15:50 36.3 C L 61 14 152/72 H 04/16/19 15:30 61 14 142/71 H 04/16/19 15:15 56 L 13 143/65 H 04/16/19 15:00 57 L 18 158/70 H 04/16/19 14:50 37 C 57 L 12 162/70 H 04/16/19 14:40 53 L 14 153/66 H 04/16/19 14:30 53 L 16 167/71 H 04/16/19 14:20 54 L 12 159/66 H 04/16/19 14:13 36.6 C 58 L 15 170/70 H 04/16/19 11:45 37 C 64 20 L 20 184/98 H Pulse Ox 04/17/19 07:15 98 04/17/19 03:19 92 04/16/19 23:07 90 04/16/19 18:40 95 04/16/19 17:51 93 04/16/19 17:07 04/16/19 17:04 93 04/16/19 16:21 97 04/16/19 15:50 95 04/16/19 15:30 95 04/16/19 15:15 95 04/16/19 15:00 98 04/16/19 14:50 99 04/16/19 14:40 99 04/16/19 14:30 99 04/16/19 14:20 97 04/16/19 14:13 94 04/16/19 11:45 Pain Intensity Head: Pain Intensity: 0 Abdomen: Pain Intensity: 0 Notes Mental Status: alert / awake / arousable and participated in evaluation Patient Amnestic to Procedure: Yes Nausea / Vomiting: adequately controlled Pain: adequately controlled Airway Patency, RR, SpO2: stable & adequate BP & HR: stable & adequate Hydration State: stable & adequate Anesthetic Complications: no major complications apparent
--- NOTE | 2019-04-17 13:39 | Hospitalist Progress Note ---
Date of Service April 17, 2019 Assessment & Plan (1) Lower GI bleed: CT a/p on 04/10 showed "6 cm segment of mild colonic wall thickening with a few prominent adjacent pericolonic lymph nodes." This was concerning for cancer, IBD, or possibly infection. - C. 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, negative for mismatch repair GI bleeding has stopped, hgb with initial decrease to 10.1 but no further GI bleeding since admission Hgb now down slightly POD#1 s/p colectomy to 9.7 -Follow CBC (2) Colonic mass: As above, with 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 -Consult general surgery-now POD#1 s/p sigmoid colectomy Does have pericolonic lymph nodes on CT but otherwise no evidence of malignancy on CT Chest/Abd/Pelvis CEA normal at 0.8 -await final path results -will need Heme/Onc f/u after discharge -doing very well -adv to clears today -awaiting return of bowel function -pain control =encouraged IS, ambulation -awaiting TOV -KARLOS drain in place -continue IVFs (3) Hypertension: BP initially mildly elevated, but now on low side post-op - Continue lisinopril and continue to follow, hold if too low (4) Anxiety: Long-standing and on minimal meds from her PCP. - Continue home Xanax 0.5mg PO QHS and lorazepam as needed during the day -Continue Celexa 10 mg daily-would be okay to hold while n.p.o. after surgery (5) Hypothyroidism: TSH was recently normal at 2.4 and 01/2019 -Continue home dose of levothyroxine 75 mcg once daily (6) DVT prophylaxis: SCDs - start Lovenox SQ Disposition-remain hospitalized for post-op recovery, Expect she will return home after hospitalization Subjective Feeling very well, has expected soreness in her abdomen. No flatus yet. No nausea, tolerating clear liquids so far. Denies chest pain or SOB. Review of Systems Review of Systems: All systems reviewed & are unremarkable except as noted in HPI & below Physical Exam Constitutional: WD/WN, vitals as above Eyes: PERRL, conjunctivae normal, anicteric sclerae ENMT: external ear and nose normal, oropharynx normal Neck: trachea midline, no thyromegaly Respiratory: normal respiratory effort, lungs clear to auscultation Cardiovascular: RRR, no murmur, no edema Extremities: no calf tenderness Gastrointestinal (Abdomen): Inspection/Auscultation: + hypoactive bowel sounds (but some are present); + abdomen abnormal to inspection (with LLQ incisional wound and periumbilical wound with Dermabond in place) and abdomen not distended Percussion/Palpation: + abdomen tender (minimally around incisional sites, no guarding or rebound) and abdomen soft Musculoskeletal: Extremities: extremities normal to inspection; no cyanosis and no clubbing Skin: no rashes, warm and dry Neurologic: moves all extremities and awake; no focal motor deficits Psychiatric: A+Ox3, euthymic affect Results & Data Vital Signs (Past 12 Hours) Vital Signs Temp Pulse Resp BP Pulse Ox 04/17/19 07:15 37 C 62 16 123/51 L 98 04/17/19 03:19 37.0 C 57 L 16 152/69 H 92 Laboratory Results 04/17/19 04/17/19 Range/Units 06:21 06:18 WBC 8.96 (4.8-10.8) K/uL RBC 3.21 L (4.2-5.4) M/uL Hgb 9.7 L (12.0-16.0) g/dL Hct 28.9 L (37-47) % MCV 90.0 (80-100) fL MCH 30.2 (25-34) pg MCHC 33.6 (32-36) g/dL RDW Std Deviation 40.0 (36.4-46.3) fL RDW Coeff of [place]ador 12.3 (11.5-14.5) % Plt Count 229 (130-400) K/uL MPV 10.5 H (7.4-10.4) fL Immature Gran % (Auto) 0.2 % Neut % (Auto) 79.8 % Lymph % (Auto) 14.4 % [place] % (Auto) 5.4 % Eos % (Auto) 0.1 % Baso % (Auto) 0.1 % Immature Gran # (Auto) 0.02 (0.00-0.02) K/uL Neut # (Auto) 7.15 H (1.4-6.5) K/uL Lymph # (Auto) 1.29 (1.2-3.4) K/uL [place] # (Auto) 0.48 (0.11-0.59) K/uL Eos # (Auto) 0.01 (0-0.5) K/uL Baso # (Auto) 0.01 (0-0.2) K/uL Sodium 141 (136-145) mmol/L Potassium 4.2 (3.5-5.1) mmol/L Chloride 108 H (98-107) mmol/L Carbon Dioxide 28 (21-32) mmol/L Anion Gap 5.0 (3-11) BUN 10 (7-18) mg/dl Creatinine 0.81 (0.6-1.2) mg/dl Est Cr Clr Drug Dosing 59.6 ml/min Est GFR ( Amer) 81.8 Est GFR (Non-Af Amer) 70.5 BUN/Creatinine Ratio 12.4 (10-20) Glucose 94 (70-99) mg/dl Calcium 8.4 L (8.5-10.1) mg/dl PG Care Time/CCT Total # of Minutes Spent Total Time Spent with Patient: Total time spent is greater than 50% in coordination of care (as documented) at patient's floor/unit and/or counseling patient:
[2019-04-17] MEDS: ALPRAZolam 0.5 MG TABLET PO SCH (20:54)
[2019-04-18] MEDS: MoRPHine SULFATE 2 MG/ML CARP IV PRN (03:14)
[2019-04-18 06:01] LABS: Basophils # (auto) 0.03 K/uL (0-0.2); Basophils % (auto) 0.4 %; Eosinophils # (auto) 0.13 K/uL (0-0.5); Eosinophils % (auto) 1.9 %; Hematocrit (blood only) 29.7 % (37-47); Hemoglobin 9.7 g/dL (12.0-16.0); Immature Granulocytes # (auto) 0.01 K/uL (0.00-0.02); Immature Granulocytes % (auto) 0.1 %; Lymphocytes # (auto) 1.28 K/uL (1.2-3.4); Lymphocytes % (auto) 18.3 %; Mean Corpuscular Hgb Conc 32.7 g/dL (32-36); Mean Corpuscular Volume 91.4 fL (80-100); Monocytes % (auto) 5.7 %; Neutrophils # (auto) 5.14 K/uL (1.4-6.5); Neutrophils % (auto) 73.6 %; Platelet Count 206 K/uL (130-400); RDW Coefficient of Variation 12.6 % (11.5-14.5); RDW Standard Deviation 42.4 fL (36.4-46.3); Red Blood Count 3.25 M/uL (4.2-5.4); White Blood Count 6.99 K/uL (4.8-10.8)
[2019-04-18] MEDS: LEVOTHYROXINE SODIUM 75 MCG TABLET PO SCH (06:06)
[2019-04-18] MEDS: LACTATED RINGER'S 1,000 ML IV SCH (06:09)
[2019-04-18 06:39] LABS: BUN Creatinine Ratio 11.1 (10-20); Calcium 8.1 mg/dl (8.5-10.1); Creatinine Clr Calc Pharmacy 60.3 ml/min; Est GFR (Non-African American) 71.6; Potassium 3.6 mmol/L (3.5-5.1)
[2019-04-18] MEDS: CITALOPRAM 20 MG TAB PO SCH (09:47)
[2019-04-18] MEDS: TRAMADOL HCL 50 MG TABLET PO PRN (09:49)
[2019-04-18] MEDS ORDERED: HYDROCODONE/ACETAMOPHEN 5/325MG TAB PO PRN ×2 (10:14→10:15)
--- NOTE | 2019-04-18 10:17 | Surgery Progress Note ---
Date of Service April 18, 2019 Assessment & Plan (1) Colon cancer: POD 2 clinically doing well stay on clears until better bowel fx continue to increase activity hepwell IVF change to oral analgesics Subjective feeling well. no bowel fx yet. no n/v. arley clear liquids. pain control adequate Physical Exam Physical Exam: alert. nad. sitting comfortably in chair abd: soft. incisions look good. KARLOS serous Results & Data Vital Signs (Past 12 Hours) Vital Signs Temp Pulse Resp BP BP Pulse Ox 04/18/19 07:10 37 C 73 18 141/81 H 92 04/17/19 23:51 37.1 C 71 16 162/77 H 91
[2019-04-18] MEDS: ENOXAPARIN INJ 40 MG/0.4 ML SYR SQ SCH (11:16)
[2019-04-18] MEDS: LISINOPRIL 5 MG TAB PO SCH (16:54)
[2019-04-18] MEDS: ALPRAZolam 0.5 MG TABLET PO SCH (20:21)
--- NOTE | 2019-04-18 20:53 | Hospitalist Progress Note ---
Date of Service April 18, 2019 Assessment & Plan (1) Lower GI bleed: CT a/p on 04/10 showed "6 cm segment of mild colonic wall thickening with a few prominent adjacent pericolonic lymph nodes." This was concerning for cancer, IBD, or possibly infection. - C. 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, negative for mismatch repair GI bleeding has stopped, hgb with initial decrease to 10.1 but no further GI bleeding since admission Hgb stable on POD#2 s/p colectomy at 9.7 -Follow CBC -Follow electrolytes and renal function, replace as needed (2) Colonic mass: As above, with 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 -Consult general surgery-now POD#1 s/p sigmoid colectomy Does have pericolonic lymph no discontinue IV fluidsdes on CT but otherwise no evidence of malignancy on CT Chest/Abd/Pelvis CEA normal at 0.8 -await final path results-so far, I do not see the pathology pending in the computer-we will need to check on Saturday to make sure it is there -will need Heme/Onc f/u after discharge -doing very well -awaiting return of bowel function still -Continue clear liquids only -pain control =encouraged IS, ambulation -KARLOS drain in place -continue IVFs (3) Hypertension: BP was on low side post-op and lisinopril was held, now blood pressures are elevated -Restart lisinopril 5 mg daily (4) Anxiety: Long-standing and on minimal meds from her PCP. - Continue home Xanax 0.5mg PO QHS and lorazepam as needed during the day -Continue Celexa 10 mg daily (5) Hypothyroidism: TSH was recently normal at 2.4 and 01/2019 -Continue home dose of levothyroxine 75 mcg once daily (6) DVT prophylaxis: SCDs - Lovenox SQ Disposition-remain hospitalized for post-op recovery, Expect she will return home after hospitalization as she is quite independent and healthy otherwise Subjective Doing very well today. Has not passed flatus but feels like she is about 2. Is tolerating clear liquids without nausea. Pain is very well controlled in the abdomen. Denies chest pain or shortness of breath. Review of Systems Review of Systems: All systems reviewed & are unremarkable except as noted in HPI & below Physical Exam Constitutional: WD/WN, vitals as above Eyes: PERRL, conjunctivae normal, anicteric sclerae ENMT: external ear and nose normal, oropharynx normal Neck: trachea midline, no thyromegaly Respiratory: normal respiratory effort, lungs clear to auscultation Cardiovascular: RRR, no murmur, no edema Extremities: no calf tenderness Gastrointestinal (Abdomen): Inspection/Auscultation: normal bowel sounds; + abdomen abnormal to inspection (with LLQ incisional wound and periumbilical wound with Dermabond in place, KARLOS drain) and abdomen not distended Percussion/Palpation: + abdomen tender (minimally around incisional sites, no guarding or rebound) and abdomen soft Musculoskeletal: Extremities: extremities normal to inspection; no cyanosis and no clubbing Skin: no rashes, warm and dry Neurologic: moves all extremities and awake; no focal motor deficits Psychiatric: A+Ox3, euthymic affect Results & Data Vital Signs (Past 12 Hours) Vital Signs Temp Pulse Resp BP Pulse Ox 04/18/19 15:09 37.1 C 75 17 169/75 H 93 Laboratory Results 04/18/19 04/18/19 04/15/19 Range/Units 05:40 05:40 12:55 WBC 6.99 (4.8-10.8) K/uL RBC 3.25 L (4.2-5.4) M/uL Hgb 9.7 L (12.0-16.0) g/dL Hct 29.7 L (37-47) % MCV 91.4 (80-100) fL MCH 29.8 (25-34) pg MCHC 32.7 (32-36) g/dL RDW Std Deviation 42.4 (36.4-46.3) fL RDW Coeff of [place]ador 12.6 (11.5-14.5) % Plt Count 206 (130-400) K/uL MPV 10.0 (7.4-10.4) fL Immature Gran % (Auto) 0.1 % Neut % (Auto) 73.6 % Lymph % (Auto) 18.3 % [place] % (Auto) 5.7 % Eos % (Auto) 1.9 % Baso % (Auto) 0.4 % Immature Gran # (Auto) 0.01 (0.00-0.02) K/uL Neut # (Auto) 5.14 (1.4-6.5) K/uL Lymph # (Auto) 1.28 (1.2-3.4) K/uL [place] # (Auto) 0.40 (0.11-0.59) K/uL Eos # (Auto) 0.13 (0-0.5) K/uL Baso # (Auto) 0.03 (0-0.2) K/uL Sodium 142 (136-145) mmol/L Potassium 3.6 (3.5-5.1) mmol/L Chloride 109 H (98-107) mmol/L Carbon Dioxide 31 (21-32) mmol/L Anion Gap 2.0 L (3-11) BUN 9 (7-18) mg/dl Creatinine 0.80 (0.6-1.2) mg/dl Est Cr Clr Drug Dosing 60.3 ml/min Est GFR ( Amer) 83.0 Est GFR (Non-Af Amer) 71.6 BUN/Creatinine Ratio 11.1 (10-20) Glucose 119 H (70-99) mg/dl Calcium 8.1 L (8.5-10.1) mg/dl Crossmatch See Detail PG Care Time/CCT Total # of Minutes Spent Total Time Spent with Patient: Total time spent is greater than 50% in coordination of care (as documented) at patient's floor/unit and/or counseling patient:
[2019-04-19] MEDS: TRAMADOL HCL 50 MG TABLET PO PRN ×2 (00:02→06:23)
[2019-04-19 06:12] LABS: Basophils # (auto) 0.03 K/uL (0-0.2); Basophils % (auto) 0.4 %; Eosinophils # (auto) 0.15 K/uL (0-0.5); Eosinophils % (auto) 1.9 %; Hematocrit (blood only) 33.5 % (37-47); Hemoglobin 11.3 g/dL (12.0-16.0); Immature Granulocytes # (auto) 0.01 K/uL (0.00-0.02); Immature Granulocytes % (auto) 0.1 %; Lymphocytes # (auto) 1.33 K/uL (1.2-3.4); Lymphocytes % (auto) 16.5 %; Mean Corpuscular Hgb Conc 33.7 g/dL (32-36); Mean Corpuscular Volume 90.8 fL (80-100); Mean Platelet Volume 10.2 fL (7.4-10.4); Monocytes # (auto) 0.54 K/uL (0.11-0.59); Monocytes % (auto) 6.7 %; Neutrophils # (auto) 6.01 K/uL (1.4-6.5); Neutrophils % (auto) 74.4 %; Platelet Count 233 K/uL (130-400); RDW Coefficient of Variation 12.4 % (11.5-14.5); RDW Standard Deviation 40.7 fL (36.4-46.3); Red Blood Count 3.69 M/uL (4.2-5.4); White Blood Count 8.07 K/uL (4.8-10.8)
[2019-04-19] MEDS: LEVOTHYROXINE SODIUM 75 MCG TABLET PO SCH (06:23)
[2019-04-19 06:45] LABS: BUN Creatinine Ratio 9.1 (10-20); Est GFR (African American) 94.3; Est GFR (Non-African American) 81.3; Potassium 3.6 mmol/L (3.5-5.1)
[2019-04-19] MEDS: CITALOPRAM 20 MG TAB PO SCH (08:58)
[2019-04-19] MEDS: LISINOPRIL 5 MG TAB PO SCH (08:58)
[2019-04-19] MEDS: ENOXAPARIN INJ 40 MG/0.4 ML SYR SQ SCH (09:18)
--- NOTE | 2019-04-19 10:51 | Surgery Progress Note ---
Date of Service April 19, 2019 Assessment & Plan (1) Colon cancer: doing well post op awaiting return of bowel fx will add ibuprofen for back pain stay on clears for now Subjective pt seen. no new complaints. no bowel fx yet. arley clear liquids. main c/o is low back discomfort. Physical Exam Physical Exam: alert. nad abd: soft. incisions look good. KARLOS serous. Results & Data Vital Signs (Past 12 Hours) Vital Signs Temp Pulse Resp BP BP Pulse Ox 04/19/19 07:00 37.1 C 80 18 161/77 H 96 04/18/19 23:44 37.3 C 73 16 156/84 H 93
[2019-04-19] MEDS: IBUPROFEN 600 MG TAB PO PRN ×2 (11:13→19:07)
[2019-04-19] MEDS ORDERED: HYDROCODONE/ACETAMOPHEN 5/325MG TAB PO STA (11:38)
--- NOTE | 2019-04-19 11:54 | Hospitalist Progress Note ---
Date of Service April 19, 2019 Assessment & Plan (1) Lower GI bleed: Presented with rectal bleeding CT a/p on 04/10 showed "6 cm segment of mild colonic wall thickening with a few prominent adjacent pericolonic lymph nodes." This was concerning for cancer, IBD, or possibly infection. - C. 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, negative for mismatch repair GI bleeding has stopped, hgb with initial decrease to 10.1 but no further GI bleeding since admission and now hgb up to 11 Hgb stable s/p colectomy -Follow CBC (2) Colonic mass: As above, with 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 -Consult general surgery-now POD#3 s/p sigmoid colectomy Does have pericolonic lymphs on CT but otherwise no evidence of malignancy on CT Chest/Abd/Pelvis CEA normal at 0.8 -await final path results-so far, I do not see the pathology pending in the computer-we will need to check on Saturday to make sure it is there -will need Heme/Onc f/u after discharge -doing very well, bowel function has returned with passing of flatus -Continue clear liquids only and advance if Surgery approves -pain control with hydrocodone prn, ibuprofen -encouraged IS, continued ambulation -KARLOS drain in place (3) Colon cancer: -as above (4) Lower back pain: Acute right lower back pain on 04/19, MSK in nature most likely, no radiculaopathy, is TTP on exam. No hematuria or other signs of kidney stone -Surgery ordered iburpofen prn -she is hesitant to take hydrocodone as she has issues with constipation, but encouraged to take 1/2 tab of Ruby now -if worsens, consider imaging -encouraged to get OOB more and walk -continue heating pad (5) Hypertension: BP was on low side post-op and lisinopril was held, now blood pressures are elevated likely secondary to pain -cont lisinopril 5 mg daily and titrate d as needed (6) Anxiety: Long-standing and on minimal meds from her PCP. - Continue home Xanax 0.5mg PO QHS and lorazepam as needed during the day -Continue Celexa 10 mg daily (7) Hypothyroidism: TSH was recently normal at 2.4 and 01/2019 -Continue home dose of levothyroxine 75 mcg once daily (8) DVT prophylaxis: SCDs - Lovenox SQ Disposition-remain hospitalized for post-op recovery, Expect she will return home after hospitalization as she is quite independent and healthy otherwise Subjective Having bad right lower back pain, worse with movement that started overnight. No radiating pain down the legs, no numbness/tingling in LEs, no blood in urine or urinary symptoms Afebrile She is passing flatus multiple times and has a lot of gassy pains in her abdomen. No nausea. Denies chest pain or SOB Review of Systems Review of Systems: All systems reviewed & are unremarkable except as noted in HPI & below Physical Exam Constitutional: WD/WN, vitals as above Eyes: PERRL, conjunctivae normal, anicteric sclerae ENMT: Ears: no hearing impairment Mouth: + oropharynx abnormality (white patch on her anterior tongue that is easily scraped off with blade) tongue with residual pill residue Neck: trachea midline, no thyromegaly Respiratory: normal respiratory effort, lungs clear to auscultation Cardiovascular: RRR, no murmur, no edema Extremities: no calf tenderness Gastrointestinal (Abdomen): Inspection/Auscultation: normal bowel sounds; + abdomen abnormal to inspection (with LLQ incisional wound and periumbilical wound with Dermabond in place, KARLOS drain) and abdomen not distended Percussion/Palpation: + abdomen tender (minimally around incisional sites, no guarding or rebound) and abdomen soft KARLOS drain with serous drainage Musculoskeletal: Spine: + paraspinal tenderness (right lower lumbar spine with +TTP over paraspinous muscles, no masses) Extremities: extremities normal to inspection and strength 5/5 throughout (in lower extremities); no cyanosis and no clubbing Skin: no rashes, warm and dry Neurologic: moves all extremities and awake; no focal motor deficits Psychiatric: A+Ox3, euthymic affect Genitourinary: normal external appearance Results & Data Vital Signs (Past 12 Hours) Vital Signs Temp Pulse Resp BP BP Pulse Ox 04/19/19 07:00 37.1 C 80 18 161/77 H 96 04/18/19 23:44 37.3 C 73 16 156/84 H 93 Laboratory Results 04/19/19 04/19/19 04/15/19 Range/Units 05:42 05:42 12:55 WBC 8.07 (4.8-10.8) K/uL RBC 3.69 L (4.2-5.4) M/uL Hgb 11.3 L (12.0-16.0) g/dL Hct 33.5 L (37-47) % MCV 90.8 (80-100) fL MCH 30.6 (25-34) pg MCHC 33.7 (32-36) g/dL RDW Std Deviation 40.7 (36.4-46.3) fL RDW Coeff of [place]ador 12.4 (11.5-14.5) % Plt Count 233 (130-400) K/uL MPV 10.2 (7.4-10.4) fL Immature Gran % (Auto) 0.1 % Neut % (Auto) 74.4 % Lymph % (Auto) 16.5 % [place] % (Auto) 6.7 % Eos % (Auto) 1.9 % Baso % (Auto) 0.4 % Immature Gran # (Auto) 0.01 (0.00-0.02) K/uL Neut # (Auto) 6.01 (1.4-6.5) K/uL Lymph # (Auto) 1.33 (1.2-3.4) K/uL [place] # (Auto) 0.54 (0.11-0.59) K/uL Eos # (Auto) 0.15 (0-0.5) K/uL Baso # (Auto) 0.03 (0-0.2) K/uL Sodium 141 (136-145) mmol/L Potassium 3.6 (3.5-5.1) mmol/L Chloride 107 (98-107) mmol/L Carbon Dioxide 30 (21-32) mmol/L Anion Gap 4.0 (3-11) BUN 7 (7-18) mg/dl Creatinine 0.72 (0.6-1.2) mg/dl Est Cr Clr Drug Dosing 67.0 ml/min Est GFR ( Amer) 94.3 Est GFR (Non-Af Amer) 81.3 BUN/Creatinine Ratio 9.1 L (10-20) Glucose 98 (70-99) mg/dl Calcium 9.0 (8.5-10.1) mg/dl Crossmatch See Detail PG Care Time/CCT Total # of Minutes Spent Total Time Spent with Patient: Total time spent is greater than 50% in coordination of care (as documented) at patient's floor/unit and/or counseling patient:
[2019-04-19 14:40] LABS: Appearance Urine Clear (Clear); Bacteria Urine Automated Negative (Negative); Bilirubin Urine Negative (Negative); Blood Urine Trace (Negative); Color Urine Yellow; Epithelial Cell Urine Auto 20-30 /lpf (0-5); Glucose Urine UA Negative (Negative); Ketones Urine Negative (Negative); Leukocyte Esterase Urine Negative (Negative); Nitrite Urine Negative (Negative); Protein Urine Negative (Negative); RBC Urine Automated 0-4 /hpf (0-4); Specific Gravity Urine 1.008 (1.000-1.030); Urobilinogen Urine Negative (Negative); pH Urine 6.5 (4.5-7.5)
[2019-04-19] MEDS: ACETAMINOPHEN 1,000 MG/100 ML VIAL IV PRN (16:14)
[2019-04-19] MEDS: ALPRAZolam 0.5 MG TABLET PO SCH (22:00)
[2019-04-20] MEDS: IBUPROFEN 600 MG TAB PO PRN ×3 (03:08→22:07)
[2019-04-20] MEDS: LEVOTHYROXINE SODIUM 75 MCG TABLET PO SCH (05:48)
[2019-04-20 06:25] LABS: Basophils # (auto) 0.01 K/uL (0-0.2); Basophils % (auto) 0.2 %; Eosinophils # (auto) 0.19 K/uL (0-0.5); Eosinophils % (auto) 3.5 %; Hematocrit (blood only) 31.6 % (37-47); Hemoglobin 10.3 g/dL (12.0-16.0); Immature Granulocytes # (auto) 0.01 K/uL (0.00-0.02); Immature Granulocytes % (auto) 0.2 %; Lymphocytes # (auto) 1.08 K/uL (1.2-3.4); Lymphocytes % (auto) 19.8 %; Mean Corpuscular Hgb Conc 32.6 g/dL (32-36); Mean Corpuscular Volume 90.3 fL (80-100); Mean Platelet Volume 10.2 fL (7.4-10.4); Monocytes # (auto) 0.43 K/uL (0.11-0.59); Monocytes % (auto) 7.9 %; Neutrophils # (auto) 3.74 K/uL (1.4-6.5); Neutrophils % (auto) 68.4 %; Platelet Count 230 K/uL (130-400); RDW Coefficient of Variation 12.4 % (11.5-14.5); RDW Standard Deviation 40.6 fL (36.4-46.3); White Blood Count 5.46 K/uL (4.8-10.8)
[2019-04-20 06:55] LABS: BUN Creatinine Ratio 11.4 (10-20); Calcium 8.7 mg/dl (8.5-10.1); Creatinine Clr Calc Pharmacy 75.4 ml/min; Est GFR (African American) 100.5; Est GFR (Non-African American) 86.7; Magnesium 2.2 mg/dl (1.8-2.4); Phosphorus 3.5 mg/dl (2.5-4.9); Potassium 3.4 mmol/L (3.5-5.1)
[2019-04-20] MEDS: CITALOPRAM 20 MG TAB PO SCH (08:27)
[2019-04-20] MEDS: ENOXAPARIN INJ 40 MG/0.4 ML SYR SQ SCH (08:27)
[2019-04-20] MEDS: LISINOPRIL 5 MG TAB PO SCH (08:27)
--- NOTE | 2019-04-20 10:47 | Surgery Progress Note ---
Date of Service April 20, 2019 Subjective doing well. no new complaints. +bm this am. arley diet Physical Exam Physical Exam: POD 4 doing well. will advance diet d/c KARLOS possible d/c tomorrow Path pending. Results & Data Vital Signs (Past 12 Hours) Vital Signs Temp Pulse Resp BP BP Pulse Ox 04/20/19 07:07 36.7 C 67 15 148/75 H 97 04/19/19 23:02 36.3 C L 68 16 128/73 94
--- NOTE | 2019-04-20 11:17 | Hospitalist Progress Note ---
Date of Service April 20, 2019 Assessment & Plan (1) Lower GI bleed: Presented with rectal bleeding CT a/p on 04/10 showed "6 cm segment of mild colonic wall thickening with a few prominent adjacent pericolonic lymph nodes." This was concerning for cancer, IBD, or possibly infection. - C. 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, negative for mismatch repair GI bleeding has stopped, hgb with initial decrease to 10.1 but no further GI bleeding since admission and now hgb up to 11 Hgb stable s/p colectomy -Follow CBC (2) Colonic mass: As above, with 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 -Consult general surgery-now POD#3 s/p sigmoid colectomy Does have pericolonic lymphs on CT but otherwise no evidence of malignancy on CT Chest/Abd/Pelvis CEA normal at 0.8 -await final path results -will need Heme/Onc f/u after discharge -doing very well, bowel function has returned - had bowel movement, tolerating diet - Diet advanced per surgery -pain control with hydrocodone prn, ibuprofen -encouraged IS, continued ambulation -KARLOS drain pulled 04/20 (3) Colon cancer: -as above (4) Lower back pain: Acute right lower back pain on 04/19, MSK in nature most likely, no radiculaopathy, contnues to be TTP on exam but reports this pain has improved since yesterday. No hematuria or other signs of kidney stone -Surgery ordered iburpofen prn - will hold off on imaging for now as it is improving but will image if it begins to worsen again -encouraged to get OOB more and walk -continue heating pad (5) Hypertension: BP was on low side post-op and lisinopril was held, now blood pressures are elevated likely secondary to pain -cont lisinopril 5 mg daily and titrate as needed (6) Anxiety: Long-standing and on minimal meds from her PCP. - Continue home Xanax 0.5mg PO QHS and lorazepam as needed during the day -Continue Celexa 10 mg daily (7) Hypothyroidism: TSH was recently normal at 2.4 and 01/2019 -Continue home dose of levothyroxine 75 mcg once daily (8) DVT prophylaxis: SCDs - Lovenox SQ Disposition-remain hospitalized for post-op recovery, Expect she will return home after hospitalization - per surgery, she will likely be ok for discharge tomorrow. Subjective Ms. Harrison is feeling better today. Had a bowel movement. Tolerating diet. Drain to be pulled today Review of Systems Review of Systems: All systems reviewed & are unremarkable except as noted in HPI & below Physical Exam Physical Exam: General: no distress Eyes: normal inspection, PERLL Respiratory: chest non tender, clear to auscultation, normal breath sounds, no respiratory distress, no accessory muscle use Cardiac: regular rate and rhythm, no rub or gallop, no murmur, no edema, no jvd GI/: hypoactive bowel sounds, no abd pain or tenderness, soft, non distended Extremities: normal range of motion, normal strength, non tender Neuro/Psych: alert and oriented x 3, normal mood and affect Skin: normal color, dry Results & Data Vital Signs (Past 12 Hours) Vital Signs Temp Pulse Resp BP BP Pulse Ox 04/20/19 07:07 36.7 C 67 15 148/75 H 97 04/19/19 23:02 36.3 C L 68 16 128/73 94 PG Care Time/CCT Total # of Minutes Spent Total Time Spent with Patient: Total time spent is greater than 50% in coordination of care (as documented) at patient's floor/unit and/or counseling patient:
[2019-04-20] MEDS ORDERED: CALCIUM CARBONATE 500 MG CHEWABLE TAB PO PRN (13:03)
[2019-04-20] MEDS: TRAMADOL HCL 50 MG TABLET PO PRN (13:28)
[2019-04-20] MEDS: ALPRAZolam 0.5 MG TABLET PO SCH (22:07)
[2019-04-21] MEDS: LEVOTHYROXINE SODIUM 75 MCG TABLET PO SCH (05:45)
[2019-04-21] MEDS ORDERED: POTASSIUM CHLORIDE 20 MEQ TABCR PO STA ×2 (07:58)
[2019-04-21] MEDS: ENOXAPARIN INJ 40 MG/0.4 ML SYR SQ SCH (08:57)
[2019-04-21] MEDS: CITALOPRAM 20 MG TAB PO SCH (08:58)
[2019-04-21] MEDS: LISINOPRIL 5 MG TAB PO SCH (08:58)
[2019-04-21 09:10] LABS: Hematocrit (blood only) 33.8 % (37-47); Hemoglobin 11.1 g/dL (12.0-16.0); Mean Corpuscular Hgb Conc 32.8 g/dL (32-36); Mean Corpuscular Volume 89.9 fL (80-100); Mean Platelet Volume 10.1 fL (7.4-10.4); Platelet Count 286 K/uL (130-400); RDW Coefficient of Variation 12.5 % (11.5-14.5); RDW Standard Deviation 40.7 fL (36.4-46.3); Red Blood Count 3.76 M/uL (4.2-5.4); White Blood Count 5.69 K/uL (4.8-10.8)
[2019-04-21 09:38] LABS: BUN Creatinine Ratio 17.2 (10-20); Calcium 9.1 mg/dl (8.5-10.1); Est GFR (African American) 95.9; Est GFR (Non-African American) 82.7; Potassium 3.8 mmol/L (3.5-5.1)
--- NOTE | 2019-04-21 11:12 | Discharge Summary ---
Date of Service April 21, 2019 Admission HPI Per Admitting Provider 78yo F w/ hx of anxiety & HTN who presents with bright red blood per rectum. She reports some darker stools that started on Saturday/Saturday. Only 1 per day and normal consistency. Not black or tarry, but just darker brown. This occurred until when she had a small amount of blood on the stool that was still a bit darker. Finally, on Saturday morning, she reports looser stool with large amounts of bright red blood. She had 3 episodes, each time with mixed dark brown stool and bright red blood. She denies any systemic symptoms such as lightheadedness, dizziness, chest pain, abdominal pain, nausea, vomiting. She has a history of hemorrhoids, but none recently and always very minimal blood on stool. She also denies any fevers/chills, night sweats, weight loss, or any other B symptoms. She has no family history of cancer or autoimmune diseases. Principal Diagnosis Colon cancer Discharge Exam Constitutional WD/WN, vitals as above Respiratory normal respiratory effort, lungs clear to auscultation Cardiovascular RRR, no murmur, no edema Gastrointestinal (Abdomen) normal bowel sounds, soft, nontender, no hepatosplenomegaly Musculoskeletal no cyanosis or clubbing, extremities motor strength 5/5 Skin no rashes, warm and dry incision intact, no shadowing on dressing over drain site Neurologic moves all extremities and awake Discharge Data Allergies Allergy/AdvReac Type Severity Reaction Status Date / Time codeine Allergy Severe ANAPHYLAXIS Verified 04/13/19 13:47 paroxetine Allergy Unknown unknown Verified 04/13/19 13:47 Consultations 04/10/19 09:25 ED Decision to Admit Stat 04/10/19 11:26 Consult Gastroenterology Routine Procedures Performed Operation Date: 04/13/19 08:30 Actual Procedures p Colonoscopy Biopsy Cytology - Carlos Overton Case, DO s Esophagogastroduodenoscopy - Carlos Overton Case, DO Operation Date: 04/16/19 12:35 Actual Procedures p Laparoscopic Sigmoid Colectomy; lysis of adhesions - Vern López DO Ordered Studies 04/10/19 07:39 CT abd pelvis wo con Stat 04/13/19 17:06 CT abd pelvis oral and IV con Routine 04/13/19 17:07 CT chest w con Routine Hospital Course (1) Lower GI bleed: Presented with rectal bleeding CT a/p on 04/10 showed "6 cm segment of mild colonic wall thickening with a few prominent adjacent pericolonic lymph nodes." This was concerning for cancer, IBD, or possibly infection. - C. 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, negative for mismatch repair GI bleeding has stopped, hgb with initial decrease to 10.1 but no further GI bleeding since admission and now hgb up to 11 Hgb stable s/p colectomy (2) Colonic mass: As above, with 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 -Consulted general surgery- 04/16 s/p sigmoid colectomy Does have pericolonic lymphs on CT but otherwise no evidence of malignancy on CT Chest/Abd/Pelvis CEA normal at 0.8 -await final path results -will need Heme/Onc f/u after discharge - referral placed to [facility] -doing very well, bowel function has returned - had bowel movement, tolerating diet - discussed with Stanislav Nieves ok to discharge. Recommend Ms. Harrison restart her home daily Miralax regimen at half the dose. - Patient had bowel movement today, tolerating low fiber diet -pain control with tramadol, ibuprofen, acetaminophen - discussed risks and benefits to ibuprofen use as well as tramadol and appropriate Tylenol dosing. Patient was tolerating tramadol without excessive sedation here in the hospital. -encouraged IS, continued ambulation -KARLOS drain pulled 04/20 (3) Colon cancer: -as above (4) Lower back pain: Acute right lower back pain on 04/19, MSK in nature most likely, no radiculaopathy, no longer tender to palpation. No hematuria or other signs of kidney stone -Surgery ordered iburpofen prn - will hold off on imaging for now as pain is resolving -encouraged to get OOB more and walk - ambulating halls without difficulty -continue heating pad (5) Hypertension: BP was on low side post-op and lisinopril was held, now blood pressures are elevated likely secondary to pain -cont lisinopril 5 mg daily and titrate as needed (6) Anxiety: Long-standing and on minimal meds from her PCP. - Continue home Xanax 0.5mg PO QHS -Continue Celexa 10 mg daily (7) Hypothyroidism: TSH was recently normal at 2.4 and 01/2019 -Continue home dose of levothyroxine 75 mcg once daily (8) DVT prophylaxis: SCDs - Lovenox SQ Disposition- discharge to home. Total Time Total Time Spent Total Time Spent (In Minutes): greater than 30 minutes Discharge Plan Discharge Items Patient Disposition: Home - Self-Care Reason For Visit: GI BLEED Discharge Diagnosis: Adenocarcinoma of the colon Discharge Goals: Diagnostic testing Activity: Resume your previous activity Activity Comment: gradually as tolerated Non-emergency contact: Primary Care Provider and Surgeon Call non-emergency contact if: you have any medication questions, your symptoms worsen, your pain is not controlled, your pain is worsening, you have a fever, your wound has increased redness and your wound has increased drainage Follow-up/Referrals: [facility] [Provider Group] (a referral has been made to [facility]. The office will review your information and contact you to schedule an appointment for follow up) Vern López, DO [Surgeon] - (Call to make an appt with Dr. López in 1 week, [phone]) Amado Nunes [Primary Care Provider] - 04/23/19 3:00 pm (follow up appointment with your primary care physician) Diet: Low Fiber Addtl Provider Instructions: Please follow up with your primary care provider as above. You can take 1 gram ( 1000 mg) acetaminophen every 8 hours for pain. You can also take over the counter ibuprofen if Tylenol is not enough. Try to limit how often you are taking the ibuprofen as it can cause stomach upset and sometime gastrointestinal bleeding if taken too frequently for too long. You should call the surgical office and arrange to see them in one week. You can resume your bowel regimen but surgery recommends you only take a half dose until you follow up with them. You should alert your surgeon if 3 days go by without a bowel movement. You can shower as usual. Prescriptions: New tramadol 50 mg Tablet 25 mg PO TID PRN (Reason: pain) Qty: 14 RF: 0 Continued citalopram 10 mg tablet 10 mg PO QAM RF: 0 levothyroxine 75 mcg tablet 75 mcg PO QAM RF: 0 alprazolam 0.5 mg tablet 0.5 mg PO HS RF: 0 lisinopril 5 mg tablet 5 mg PO QAM RF: 0 polyethylene glycol 3350 17 gram/dose powder 17 g PO QAM RF: 0 aspirin 81 mg Tablet,Chewable 81 mg RF: 0 Glucosamine Chondroitin PLUS [phone] mg Capsule DAILY RF: 0 Stand-Alone Forms: [facility] Discharge Orders: Discharge Order (Routine); Ordered 04/21/19 Ordered By: Maryann Bowman Admission Data Admit Date/Time: 04/10/19 10:04 Attending Provider: Michael Terrazas Admit Provider: Dani Olivares Primary Care Provider: Amado Nunes Other Providers: Carlos Calderon ; Dani Olivares ; Corrina Raymond Service: Medical Other Interventions: Discharge Summary Assessment (RN) Last Done: 04/13/19 15:25
--- NOTE | 2019-04-21 11:54 | Surgery Progress Note ---
Date of Service April 21, 2019 Assessment & Plan (1) Colonic mass: POD 5 sigmoid colectomy tolerating diet ok for discharge, f/u 1 week as above. doing well path pending still ok for d/c. instructions given Subjective tolerating regular diet, has flatus but not recent BM Physical Exam Gastrointestinal (Abdomen): Inspection/Auscultation: abdomen not distended Percussion/Palpation: abdomen soft Results & Data Vital Signs (Past 12 Hours) Vital Signs Temp Pulse Resp BP Pulse Ox 04/21/19 07:17 36.9 C 66 18 155/79 H 99
== END 2019-04-21 13:55 | disposition home or self-care (01) | DRG 330 ==
LOC: ED 07:21 → 4E 10:04 → SUATTDRO 10:04 → 4E 10:35 → 3N 04-16 16:06

== ENCOUNTER 2019-11-01 05:44 | Observation (INO) ==
[2019-11-01] MEDS ORDERED: NITROGLYCERIN SL 0.4 MG/TAB TAB SL STA ×2 (06:09→06:30)
[2019-11-01] MEDS ORDERED: NITROGLYCERIN SL 0.4 MG/TAB TAB ONE (06:09)
[2019-11-01 06:19] LABS: Hematocrit (blood only) 41.8 % (37-47); Mean Corpuscular Hemoglobin 31.6 pg (25-34); Mean Corpuscular Hgb Conc 33.5 g/dL (32-36); Mean Corpuscular Volume 94.4 fL (80-100); RDW Coefficient of Variation 12.9 % (11.5-14.5); RDW Standard Deviation 44.6 fL (36.4-46.3); Red Blood Count 4.43 M/uL (4.2-5.4)
[2019-11-01 06:22] LABS: Mean Platelet Volume 9.8 fL (7.4-10.4); Platelet Count 96 K/uL (130-400)
[2019-11-01] MEDS ORDERED: ASPIRIN CHEW 324 MG PO STA (06:24)
[2019-11-01 06:29] LABS: Alanine Aminotransferase 20 U/L (12-78); Albumin Level 3.6 gm/dl (3.4-5.0); Aspartate Aminotransferase 19 U/L (15-37); BUN Creatinine Ratio 14.2 (10-20); Blood Urea Nitrogen 14 mg/dl (7-18); Carbon Dioxide 29 mmol/L (21-32); Chloride 108 mmol/L (98-107); Creatinine Clr Calc Pharmacy 48.5 ml/min; Est GFR (African American) 66.1; Glucose 124 mg/dl (70-99); Sodium 140 mmol/L (136-145)
[2019-11-01 06:34] LABS: Albumin Globulin Ratio 0.9 (0.9-2); Alkaline Phosphatase 129 U/L (45-117); Bilirubin,Total 0.6 mg/dl (0.2-1); Globulin 3.8 gm/dl (2.5-4.0); Total Protein 7.4 gm/dl (6.4-8.2); Troponin I < 0.015 ng/ml (0-0.045)
[2019-11-01] MEDS ORDERED: fentaNYL citrate 100 MCG/2 ML VIAL IV STA (06:42)
[2019-11-01 06:45] LABS: Basophils # (auto) 0.02 K/uL (0-0.2); Basophils % (auto) 0.3 %; Eosinophils # (auto) 0.08 K/uL (0-0.5); Eosinophils % (auto) 1.1 %; Immature Granulocytes # (auto) 0.01 K/uL (0.00-0.02); Immature Granulocytes % (auto) 0.1 %; Lymphocytes # (auto) 1.13 K/uL (1.2-3.4); Lymphocytes % (auto) 15.1 %; Monocytes # (auto) 0.35 K/uL (0.11-0.59); Monocytes % (auto) 4.7 %; Neutrophils # (auto) 5.91 K/uL (1.4-6.5); Neutrophils % (auto) 78.7 %
--- NOTE | 2019-11-01 06:45 | XRay Report ---
XR chest 1V portable CLINICAL HISTORY: Chest Pain COMPARISON STUDY: Chest CT April 13, 2019. Chest radiograph June 05, 2019. FINDINGS: Lung volumes are normal. Linear left lung opacities suggest atelectasis or scarring. There is no pneumothorax or pleural effusion. Cardiac size is normal. Mediastinal contours are normal. Ther e is no evidence for pulmonary edema. Left subclavian [id number] is in place. IMPRESSION: No acute cardiopulmonary findings. ACT 112: Negative or not required by law. Electronically signed by: Yonatan Roy M.D. 11/01/2019 6:44 AM
[2019-11-01 06:46] LABS: D Dimer 410 ug/L FEU (0-500); Partial Thromboplastin Time 26.5 Seconds (21.0-31.0); Prothrombin Time 10.3 Seconds (9.0-12.0)
--- NOTE | 2019-11-01 07:48 | History & Physical Report ---
Date of Service November 01, 2019 Assessment & Plan (1) Substernal chest pain: Patient presents with 8 hours of pleuritic type chest pain that is worse with lying flat and radiates to the neck, worse with inspiration, and not associated with cough. Does have some mild shortness of breath and nausea associated with it, no diaphoresis. Initial troponin is negative ECG with somewhat nonspecific changes of T wave inversions in the lateral leads which then resolved with improvement of pain Seems unlikely this is an acute coronary syndrome given a negative troponin after constant severe chest pain for 8 hours. Chest pain was relieved somewhat with nitroglycerin and aspirin. Not reproducible Perhaps has a pericarditis versus early bronchitis? -Given family history and siblings of aneurysms, pain radiating to the neck and mild hypertension, will check CT of the chest with dissection protocol. -Admit on observation to telemetry to monitor for arrhythmias -Check serial troponin, echocardiogram -Try Toradol as needed for pain -Monitor for improvement with Toradol -Give gentle IV fluids x1 L and make n.p.o. until after CT of the chest (2) Hypothyroidism: TSH normal in April -Continue home dose of levothyroxine 75 mcg daily (3) Anxiety: Stable -Continue citalopram 10 mg daily and Xanax 0.5 mg p.o. nightly (4) Hypertension: Blood pressures mildly elevated upon admission likely secondary to anxiety -Continue home lisinopril -Observe for improvement of blood pressure (5) Colon cancer: Status post partial colectomy and had 1 lymph node positive -Now has completed course of chemotherapy in 08/2018 -Follows with Dr. August of [facility] oncology (6) Thrombocytopenia: Platelets 96 on admission and were 93 in 08/2019. She was noted on a CT scan in the past few months to have splenomegaly-question if she has thrombocytopenia related to hypersplenism -Follow CBC in the morning -If worsens, consider consulting her hematology/oncologist, Dr. August (7) Fever: Later on after admission, patient spiked fever to 38.0 and was having a headache and chills. Perhaps her chest pain is related to some sort of early viral syndrome -Check blood cultures and flu swab -Follow for further symptoms Tylenol as needed for fever and headache (8) DVT prophylaxis: Heparin SQ Disposition-admit on observation to telemetry History of Present Illness Chief Complaint: Chest pain Primary Care Provider: Amado Nunes MD This patient is a 79-year-old female with a history of colon cancer status post partial colectomy and finished chemotherapy in 08/2018, anxiety disorder, hypothyroidism, hypertension, OA, who presents to the ER with substernal chest pain that started at 10 PM last evening. She reports the pain came on while she was lying in bed and is worse with deep inspiration. It radiates to both sides of her neck. It is described as sharp and stabbing and is in 8/10 in severity. It does improve when she sits up and is worse with lying flat. She has some mild nausea associated with it and shortness of breath, but no diaphoresis. Denies cough or chills or sweats or fevers. No headache. She tried to wait it out but the pain got no better and she came into the ER at 6 AM. In the ER, her troponin was negative, she was given nitroglycerin and aspirin and her pain subsided down to a 3 or 4 out of 10. Her ECG however showed some T wave inversions in the lateral leads but otherwise with normal sinus rhythm and blood pressure was mildly elevated. Chest x-ray was normal and CBC, CMP, and d-dimer also normal. A repeat ECG after pain had improved was now with improvement of the T wave inversions. Allergies Allergy/AdvReac Type Severity Reaction Status Date / Time codeine Allergy Severe ANAPHYLAXIS Verified 11/01/19 06:19 paroxetine Allergy Unknown unknown Verified 11/01/19 06:19 Home Medications Home Medications Medication Instructions Recorded Confirmed Type alprazolam 0.5 mg PO HS PRN 04/10/19 11/01/19 History citalopram 10 mg PO QAM 04/10/19 11/01/19 History levothyroxine 75 mcg PO QAM 04/10/19 11/01/19 History lisinopril 5 mg PO QAM 04/10/19 11/01/19 History polyethylene glycol 3350 17 g PO QAM 04/10/19 11/01/19 History Glucosamine Chondroitin PLUS 1 cap PO DAILY 04/13/19 11/01/19 History aspirin 81 mg chewable tablet 81 mg PO Q OTHER DAY 06/01/19 11/01/19 History multivitamin 1 cap PO DAILY 06/01/19 11/01/19 History zolpidem 5 mg PO HS 09/18/19 11/01/19 History Past Med/Surg History Medical History Anemia Anxiety Bulging discs Colon cancer GERD (gastroesophageal reflux disease) Hearing deficit BL TRIVEDI Hemorrhoids History of GI bleed Hypertension Hypothyroid Osteoarthritis Port-A-Cath in place (06/05/19) Infusaport Insertion Dr. López 06-05-19 Stage III carcinoma of colon S/P SX Surgical History History of appendectomy History of bowel resection History of cardiac cath 1980S - NO STENTS/ANGIOPLASTY History of cataract surgery History of cholecystectomy History of colonoscopy History of esophagogastroduodenoscopy (EGD) History of hemorrhoidectomy History of tonsillectomy Nausea and vomiting after administration of anesthetic agent Family History Brother Aneurysm Sister Family history of diabetes mellitus Cancer Kidney Cerebral aneurysm Grandmother Family history of diabetes mellitus Father Coronary heart disease, Onset Age: 65 CABG Mother Venous thromboembolism Sister Cirrhosis Social History Preferred Language: Hebrew Communication Ability: Effective Gynecology Teacher Required: No Beliefs That Will Affect Care: None marital status: Current Living Situation: Spouse Other Information That Helps Us Care for You: No Feels Safe at Home: Yes Safety Concerns: Feels Safe At This Time Smoking Status: Former smoker Cigarettes Per Day: 1961 ; Do You Dip or Chew Tobacco: No ; Smoking End Date: 1961 ; Second Hand Exposure: No ; Tobacco Cessation Education Requested by Patient: No Hx Alcohol Use: No Hx Substance Use: No Review of Systems Review of Systems: All systems reviewed & are unremarkable except as noted in HPI & below No headaches, vision changes, no nausea or vomiting, no diarrhea, no abdominal pain, no new joint pains or rashes. No rhinorrhea or sore throat. No burning with urination. No cough. Physical Exam Constitutional: WD/WN, vitals as above Eyes: PERRL, conjunctivae normal, anicteric sclerae ENMT: external ear and nose normal, oropharynx normal Neck: trachea midline, no thyromegaly Respiratory: normal respiratory effort, lungs clear to auscultation Cardiovascular: RRR, no murmur, no edema (No tenderness to palpation over sternum or anterior chest wall) Vessels: no JVD Chest (Breasts): Chest: normal inspection of chest and + vascular access device or port Gastrointestinal (Abdomen): normal bowel sounds, soft, nontender, no hepatosplenomegaly Musculoskeletal: Extremities: extremities normal to inspection; no cyanosis and no clubbing Skin: no rashes, warm and dry Neurologic: moves all extremities and awake; no focal motor deficits Psychiatric: A+Ox3, euthymic affect Lymphatic: no lymphedema Results & Data Vital Signs (Past 12 Hours) Vital Signs Temp Pulse Pulse Resp BP BP Pulse Ox 11/01/19 07:11 72 18 160/80 H 96 11/01/19 06:30 83 18 154/81 H 95 11/01/19 06:18 88 18 141/85 H 93 11/01/19 06:12 80 18 197/96 H 97 11/01/19 05:46 36.7 C 88 20 190/94 H 95 Laboratory Results Labs reviewed as above Diagnostic Findings Chest x-ray image personally reviewed by me and agree with the following report XR chest 1V portable CLINICAL HISTORY: Chest Pain COMPARISON STUDY: Chest CT April 13, 2019. Chest radiograph June 05, 2019. FINDINGS: Lung volumes are normal. Linear left lung opacities suggest atelec tasis or scarring. There is no pneumothorax or pleural effusion. Cardiac size is normal. Mediastinal contours are normal. There is no evidence for pulmonary edema. Left subclavian [id number] is in place. IMPRESSION: No acute cardiopulmonary findings. ECG Additional Comments: ECG #1-normal sinus rhythm with T wave inversions in lateral leads although there is artifact in the precordial leads ECG #2 normal sinus rhythm with resolution of T wave inversions Code Status & VTE Plan Code Status DNR/DNI as per discussion with the patient with at bedside VTE Prophylaxis Plan VTE Prophylaxis will be ordered: Yes PG Care Time/CCT Total # of Minutes Spent Total Time Spent with Patient: Total time spent is greater than 50% in coordination of care (as documented) at patient's floor/unit and/or counseling patient:
[2019-11-01] MEDS ORDERED: OPTIRAY 320 125ml IV PRN (08:06)
[2019-11-01 08:13] LABS: Chol HDL Ratio 3; Cholesterol 172 mg/dl (0-200); HDL Cholesterol 55 mg/dl; LDL Cholesterol Calculated 90 mg/dl; Triglycerides 135 mg/dl (0-150); VLDL Cholesterol 27 mg/dl
--- NOTE | 2019-11-01 08:25 | Emergency Department Note ---
Entered by Jules Machado acting as a scribe for History of Present Illness General Chief complaint: Cardiac Assessment Stated complaint: CHEST PAIN Time Seen by Provider: 11/01/19 05:59 Source: patient History of Present Illness Onset (ago): day(s) (yesterday at 2200) Location: chest Radiation: neck (throat) Pain Consistency: + constant Maximum Pain Intensity: 8 Associated symptoms: + other (Positive for SOB and nausea. Negative for vomiting, abdominal pain, diarrhea, and a cough.) The patient is a 79 year old female who presents to the emergency department with complaints of constant chest pain beginning yesterday at 2200. The patient states that her chest pain radiates into her throat, but she notes that her symptoms do not feel like heart burn. She reports that she is SOB and she states that it hurts for her to take a breath. She notes that it also hurts when her he art beats. She also complains of nausea, but she denies any vomiting, abdominal pain, diarrhea, and cough. She reports that she has a history of colon cancer but she states that she does not have any cardiac history of history of blood clots. Home Medications Home Medications Medication Instructions Recorded Confirmed Type alprazolam 0.5 mg PO HS PRN 04/10/19 11/01/19 History citalopram 10 mg PO QAM 04/10/19 11/01/19 History levothyroxine 75 mcg PO QAM 04/10/19 11/01/19 History lisinopril 5 mg PO QAM 04/10/19 11/01/19 History polyethylene glycol 3350 17 g PO QAM 04/10/19 11/01/19 History Glucosamine Chondroitin PLUS 1 cap PO DAILY 04/13/19 11/01/19 History aspirin 81 mg chewable tablet 81 mg PO Q OTHER DAY 06/01/19 11/01/19 History multivitamin 1 cap PO DAILY 06/01/19 11/01/19 History zolpidem 5 mg PO HS PRN 09/18/19 11/01/19 History Allergies Allergy/AdvReac Type Severity Reaction Status Date / Time codeine Allergy Severe ANAPHYLAXIS Verified 11/01/19 06:19 paroxetine Allergy Unknown unknown Verified 11/01/19 06:19 Past Med/Surg History Medical History Anemia Anxiety Bulging discs Colon cancer GERD (gastroesophageal reflux disease) Hearing deficit BL TRIVEDI Hemorrhoids History of GI bleed Hypertension Hypothyroid Osteoarthritis Port-A-Cath in place (06/05/19) Infusaport Insertion Dr. López 06-05-19 Stage III carcinoma of colon S/P SX Surgical History History of appendectomy History of bowel resection History of cardiac cath 1980S - NO STENTS/ANGIOPLASTY History of cataract surgery History of cholecystectomy History of colonoscopy History of esophagogastroduodenoscopy (EGD) History of hemorrhoidectomy History of tonsillectomy Nausea and vomiting after administration of anesthetic agent Family History Brother Aneurysm Sister Family history of diabetes mellitus Cancer Kidney Cerebral aneurysm Grandmother Family history of diabetes mellitus Father Coronary heart disease, Onset Age: 65 CABG Mother Venous thromboembolism Sister Cirrhosis Social History Preferred Language: [place] Communication Ability: Effective Butcher Scullion Required: No Beliefs That Will Affect Care: None marital status: Current Living Situation: Spouse Other Information That Helps Us Care for You: No Feels Safe at Home: Yes Safety Concerns: Feels Safe At This Time Smoking Status: Former smoker Cigarettes Per Day: 1961 ; Do You Dip or Chew Tobacco: No ; Smoking End Date: 1961 ; Second Hand Exposure: No ; Tobacco Cessation Education Requested by Patient: No Hx Alcohol Use: No Hx Substance Use: No Review of Systems See HPI for pertinent positives & negatives. and A total of 10 systems reviewed and were otherwise negative Physical Exam Vital Signs Vital Signs - 24 hr 11/01/19 06:18 11/01/19 06:30 11/01/19 07:11 Pulse Rate 83 Pulse Rate [Bilateral] 88 72 Pulse Rate from SpO2 Sensor 83 Pulse Rhythm [Bilateral] Regular Regular Pulse Strength [Bilateral] Normal Normal Respiratory Rate 18 18 18 Respiratory Effort / Characteristics Non-Labored Spontaneous Non-Labored Respiratory Depth Normal Normal Respiratory Pattern Regular Blood Pressure 154/81 H Blood Pressure [Left Arm] 141/85 H 160/80 H Blood Pressure Mean 112 Blood Pressure Mean [Left Arm] 103 106 Blood Pressure Position [Left Arm] Lying Lying Pulse Oximetry 93 95 96 Oxygen Delivery Method Room Air Room Air Room Air General: Appears uncomfortable. HEENT: Head - normocephalic and atraumatic Pupils are equal, round, and reactive to light. Extraocular eye muscles are intact, and sclera are anicteric. Nose - moist nasal mucosa without discharge. Mouth - moist buccal mucosa. Oropharynx is nonerythematous and there is no tonsillar exudate or edema noted. Neck: Supple; no JVD, nuchal rigidity, cervical lymphadenopathy, or auscultated bruits. Heart: Regular rate and rhythm. There is a normal S1 and S2 with no murmurs, clicks, or gallops appreciated. Lungs: Clear to auscultation bilaterally with no wheezes, rales, or rhonchi. Abdomen: Soft, completely nontender, nondistended, with good bowel sounds. There are no palpable pulsatile masses or hepatosplenomegaly. There is no guarding, rigidity, or rebound noted. Extremities: No evidence of cyanosis, clubbing, or edema. There are easily palpable peripheral pulses. Skin: warm and dry with good turgor and no rashes. Course Course 0603: The patient was evaluated in room A10. A complete history and physical examination were performed. Nursing notes and previous electronic medical records were reviewed. IV lock was established and labs were drawn as above. The patient was observed on the alarm security or surveillance monitor and pulse oximeter. A twelve- lead EKG was obtained as described above. 0611: Nitroglycerin 0.4mg SL 0624: I reevaluated the patient. Her pain went from an 8 to a 4 after one dose of nitro. 0625: Nitroglycerin 0.4mg SL 0627: Aspirin 324mg PO 0639: I rechecked the patient. She received another nitro and now has a headach e. Her pain is still at a 4 and she states that she still has pain when she takes a deep breath. 0647: Fentanyl Citrate 50mcg IV 0656: Upon reevaluation, the patient is stable. I discussed the findings and the treatment plan with the patient. She expresses agreement and understanding. I spoke with Dr. Raymond of the [facility] Hospitalist Service. The patient will be evaluated for further management. Consultations Consultation #1: I reviewed the patient's case with Dr. Raymond - Hospitalist, [facility]. She will evaluate the patient for further management. Time: 06:56 Administered Medications Acetaminophen (Tylenol) 650 mg PO Q4H PRN PRN Reason: Pain or Fever Stop: 12/01/19 09:28 Last Admin: 11/01/19 14:32 Dose: 650 mg Documented by: [id number] Alprazolam (Xanax) 0.5 mg PO HS PRN PRN Reason: Sleep Stop: 12/01/19 09:28 Last Admin: 11/01/19 22:08 Dose: 0.5 mg Documented by: [id number] Aspirin (Ecotrin Ectab) 81 mg PO DAILY [facility] Stop: 12/01/19 09:28 Last Admin: 11/01/19 10:48 Dose: 81 mg Documented by: [id number] Citalopram Hydrobromide (Celexa) 10 mg PO QAM [facility] Stop: 12/01/19 09:28 Last Admin: 11/01/19 10:47 Dose: 10 mg Documented by: [id number] Heparin Sodium (Porcine) (Heparin Sodium (Porcine)) 5,000 units SQ Q8 [facility] Stop: 12/01/19 13:59 Last Admin: 11/02/19 05:28 Dose: 5,000 units Documented by: [id number] Cosigned by: [id number] Admin: 11/01/19 20:32 Dose: Not Given Documented by: [id number] Admin: 11/01/19 16:28 Dose: 5,000 units Documented by: [id number] Cosigned by: [id number] Ioversol (Optiray 320 125ml) 120 ml IV ONCE PRN PRN Reason: Interaction Checking Stop: 11/05/19 08:05 Last Admin: 11/01/19 08:09 Dose: 120 ml Documented by: [id number] Ketorolac Tromethamine (Toradol) 15 mg IV Q6H PRN PRN Reason: Chest Pain Stop: 11/06/19 09:28 Last Admin: 11/01/19 22:08 Dose: 15 mg Documented by: [id number] Admin: 11/01/19 16:26 Dose: 15 mg Documented by: [id number] Levothyroxine Sodium (Synthroid) 75 mcg PO DAILYBB [facility] Stop: 12/01/19 09:28 Last Admin: 11/02/19 05:28 Dose: 75 mcg Documented by: [id number] Admin: 11/01/19 10:47 Dose: 75 mcg Documented by: [id number] Lisinopril (Zestril) 5 mg PO QAM [facility] Stop: 12/01/19 09:28 Last Admin: 11/01/19 10:46 Dose: 5 mg Documented by: [id number] Multivitamins (Multivitamin Tab) 1 tab PO DAILY [facility] Stop: 12/01/19 09:28 Last Admin: 11/01/19 10:47 Dose: 1 tab Documented by: [id number] Polyethylene Glycol (Miralax Powder Packet) [facility] Stop: 12/01/19 09:28 Last Admin: 11/01/19 10:46 Dose: 17 gm Documented by: [id number] Discontinued Medications Aspirin (Aspirin) 324 mg PO NOW [facility] Stop: 11/01/19 06:25 Last Admin: 11/01/19 06:27 Dose: 324 mg Documented by: [id number] Fentanyl Citrate (Fentanyl Citrate) 50 mcg IV NOW STA Stop: 11/01/19 06:43 Last Admin: 11/01/19 06:47 Dose: 50 mcg Documented by: [id number] Sodium Chloride (Nss 1000ml) 1,000 mls @ 75 mls/hr IV .[id number] [facility] Stop: 11/01/19 22:48 Last Infusion: 11/02/19 00:12 Dose: 0 mls/hr Documented by: [id number] Admin: 11/01/19 10:52 Dose: 75 mls/hr Documented by: [id number] Ketorolac Tromethamine (Toradol) 15 mg IV NOW ONE Stop: 11/01/19 09:30 Last Admin: 11/01/19 09:48 Dose: 15 mg Documented by: [id number] Nitroglycerin (Nitrostat) 0.4 mg SL NOW STA Stop: 11/01/19 06:10 Last Admin: 11/01/19 06:11 Dose: 0.4 mg Documented by: [id number] Nitroglycerin (Nitrostat) Confirm Administered Dose 0.4 mg .ROUTE .STK-MED ONE Stop: 11/01/19 06:10 Last Admin: 11/01/19 06:12 Dose: Not Given Documented by: [id number] Nitroglycerin (Nitrostat) 0.4 mg SL NOW STA Stop: 11/01/19 06:31 Last Admin: 11/01/19 06:25 Dose: 0.4 mg Documented by: [id number] Medical Decision Making Differential Diagnosis Differential diagnoses include: PE, acute coronary syndrome, STEMI, GERD, and aortic dissection. Medical Records Attestation: I reviewed the patient's medical records. Home Medications Current Medication List: was personally reviewed by me Laboratory Data Attestation: I reviewed the patient's lab results. Result diagrams: 11/01/19 06:00 11/01/19 06:00 Lab Results 11/01/19 11/01/19 11/01/19 Range/Units 06:00 06:00 06:00 WBC 7.50 (4.8-10.8) K/uL RBC 4.43 (4.2-5.4) M/uL Hgb 14.0 (12.0-16.0) g/dL Hct 41.8 (37-47) % MCV 94.4 (80-100) fL MCH 31.6 (25-34) pg MCHC 33.5 (32-36) g/dL RDW Std Deviation 44.6 (36.4-46.3) fL RDW Coeff of Amador 12.9 (11.5-14.5) % Plt Count 96 L (130-400) K/uL MPV 9.8 (7.4-10.4) fL Immature Gran % (Auto) 0.1 % Neut % (Auto) 78.7 % Lymph % (Auto) 15.1 % Arroyo % (Auto) 4.7 % Eos % (Auto) 1.1 % Baso % (Auto) 0.3 % Immature Gran # (Auto) 0.01 (0.00-0.02) K/uL Neut # (Auto) 5.91 (1.4-6.5) K/uL Lymph # (Auto) 1.13 L (1.2-3.4) K/uL [place]o # (Auto) 0.35 (0.11-0.59) K/uL Eos # (Auto) 0.08 (0-0.5) K/uL Baso # (Auto) 0.02 (0-0.2) K/uL PT 10.3 (9.0-12.0) Seconds INR 1.0 (0.9-1.1) APTT 26.5 (21.0-31.0) Seconds PTT Ratio 1.0 D-Dimer 410 (0-500) ug/L FEU Sodium 140 (136-145) mmol/L Potassium 4.0 (3.5-5.1) mmol/L Chloride 108 H (98-107) mmol/L Carbon Dioxide 29 (21-32) mmol/L Anion Gap 3.0 (3-11) BUN 14 (7-18) mg/dl Creatinine 0.96 (0.6-1.2) mg/dl Est Cr Clr Drug Dosing 48.5 ml/min Est GFR ( Amer) 66.1 Est GFR (Non-Af Amer) 57.0 BUN/Creatinine Ratio 14.2 (10-20) Glucose 124 H (70-99) mg/dl Calcium 9.0 (8.5-10.1) mg/dl Total Bilirubin 0.6 (0.2-1) mg/dl AST 19 (15-37) U/L ALT 20 (12-78) U/L Alkaline Phosphatase 129 H (45-117) U/L Troponin I < 0.015 (0-0.045) ng/ml Total Protein 7.4 (6.4-8.2) gm/dl Albumin 3.6 (3.4-5.0) gm/dl Globulin 3.8 (2.5-4.0) gm/dl Albumin/Globulin Ratio 0.9 (0.9-2) Triglycerides (0-150) mg/dl Cholesterol (0-200) mg/dl LDL Cholesterol, Calc mg/dl VLDL Cholesterol, Calc mg/dl HDL Cholesterol mg/dl Cholesterol/HDL Ratio 11/01/19 11/01/19 Range/Units 06:00 06:00 WBC (4.8-10.8) K/uL RBC (4.2-5.4) M/uL Hgb (12.0-16.0) g/dL Hct (37-47) % MCV (80-100) fL MCH (25-34) pg MCHC (32-36) g/dL RDW Std Deviation (36.4-46.3) fL RDW Coeff of Amador (11.5-14.5) % Plt Count (130-400) K/uL MPV (7.4-10.4) fL Immature Gran % (Auto) % Neut % (Auto) % Lymph % (Auto) % Arroyo % (Auto) % Eos % (Auto) % Baso % (Auto) % Immature Gran # (Auto) (0.00-0.02) K/uL Neut # (Auto) (1.4-6.5) K/uL Lymph # (Auto) (1.2-3.4) K/uL Arroyo # (Auto) (0.11-0.59) K/uL Eos # (Auto) (0-0.5) K/uL Baso # (Auto) (0-0.2) K/uL PT (9.0-12.0) Seconds INR (0.9-1.1) APTT (21.0-31.0) Seconds PTT Ratio D-Dimer Cancelled (0-500) ug/L FEU Sodium (136-145) mmol/L Potassium (3.5-5.1) mmol/L Chloride (98-107) mmol/L Carbon Dioxide (21-32) mmol/L Anion Gap (3-11) BUN (7-18) mg/dl Creatinine (0.6-1.2) mg/dl Est Cr Clr Drug Dosing ml/min Est GFR ( Amer) Est GFR (Non-Af Amer) BUN/Creatinine Ratio (10-20) Glucose (70-99) mg/dl Calcium (8.5-10.1) mg/dl Total Bilirubin (0.2-1) mg/dl AST (15-37) U/L ALT (12-78) U/L Alkaline Phosphatase (45-117) U/L Troponin I (0-0.045) ng/ml Total Protein (6.4-8.2) gm/dl Albumin (3.4-5.0) gm/dl Globulin (2.5-4.0) gm/dl Albumin/Globulin Ratio (0.9-2) Triglycerides 135 (0-150) mg/dl Cholesterol 172 (0-200) mg/dl LDL Cholesterol, Calc 90 mg/dl VLDL Cholesterol, Calc 27 mg/dl HDL Cholesterol 55 mg/dl Cholesterol/HDL Ratio 3 Imaging Data Attestation: I personally reviewed and interpreted this imaging study as follows: My Impression: CHEST X-RAY: Mediport in place. No obvious pulmonary infiltrate or consolidation. No pneumothorax. ECG Data Attestation: I personally reviewed and interpreted this ECG as follows: Indication: + chest pain Rate (beats per minute): 88 Rhythm: + normal sinus ECG ST segments: + ST depression (Lateral) Comparison ECG Date: from (04/10/2019) Change: the following changes noted (Compared to prior, ST depression is new.) Blood Pressure Blood Pressure Findings: Elevated blood pressure Blood Pressure Disposition: further management by hospitalist MARIXA Narrative The patient is a 79 year old female who presents to the emergency department with complaints of constant chest pain beginning yesterday at 2200. This patient has a history of colon cancer and presents with a fairly sudden onset of chest discomfort. EKG was unremarkable and cardiac enzymes were negati ve. The patient described having increased discomfort with deep breathing. D- dimer was negative. O2 saturations were stable. I am concerned about the patient's presentation and feel she will require further evaluation and rule out for acute coronary syndrome. Impression & Plan Substernal chest pain, SOB (shortness of breath) Discharge Plan Visit Data *Final* Discharge Date/Time: 11/01/19 08:46 Chief Complaint: Cardiac Assessment Stated Complaint: CHEST PAIN ED Provider: Arlene Hoff Discharge Problem: Substernal chest pain, SOB (shortness of breath) Patient Disposition: Admitted As Inpatient Discharge Instructions Interventions: ED Discharge Assessment Last Done: 11/01/19 08:46 The scribe's documentation has been prepared under my direction and personally reviewed by me in its entirety. I confirm that the note above accurately reflects all work, treatment, procedures, and medical decision making performed by me.
--- NOTE | 2019-11-01 08:27 | CT Scan Report ---
CT ANGIOGRAPHY OF THE CHEST DISSECTION PROTOCOL CLINICAL HISTORY: chest pain radiating to neck,r/o dissection COMPARISON STUDY: Chest CT April 13, 2019. Chest radiograph performed earlier today. TECHNIQUE: Before and following the IV administration of 120 mL of Optiray-320, helical axial images of the chest were obtained. Maximal intensity projections and sagittal and coronal reformats were vi ewed on an independent 3D workstation. IV contrast was administered without complication. Automated exposure control was utilized for the study. A dose lowering technique was utilized adhering to the principles of ALARA. CT DOSE: 488.33 mGy.cm FINDINGS: The caliber of the thoracic aorta is normal. There is no intramural hematoma or thoracic a ortic dissection. The heart is mildly enlarged. There is no pericardial effusion. No enlarged thoraci c lymph nodes are noted. There is no pneumomediastinum. No pneumothorax or pleural effusion is noted. There is no consolidation to suggest pneumonia. Linear and groundglass opacities within the lungs fa vor atelectasis. There are no suspicious lesions within the bony thorax. Upper abdomen is unremarkabl e. IMPRESSION: 1. No thoracic aortic dissection. 2. No acute findings within the chest. ACT 112: Negative or not required by law. Electronically signed by: Yonatan Roy M.D. 11/01/2019 8:25 AM
[2019-11-01] MEDS ORDERED: KETOROLAC TROMETHAMINE 15 MG/ML VIAL IV ONE (09:29)
[2019-11-01] MEDS ORDERED: SODIUM CHLORIDE 0.9% 1000ML 1,000 ML IV SCH (09:29)
[2019-11-01] MEDS ORDERED: ALUMINUM/MAGNESIUM SUSP 30 ML UDC PO PRN (09:29)
[2019-11-01] MEDS ORDERED: ONDANSETRON INJ 2 MG/ML 2 ML VIAL IV PRN (09:29)
[2019-11-01] MEDS ORDERED: ACETAMINOPHEN 325 MG TAB PO PRN (09:29)
[2019-11-01] MEDS ORDERED: MAGNESIUM HYDROXIDE SUSP 30 ML UDC PO PRN (09:29)
[2019-11-01] MEDS ORDERED: ALPRAZolam 0.5 MG TABLET PO PRN (09:29)
[2019-11-01] MEDS ORDERED: ZOLPIDEM TARTRATE 5 MG TAB PO PRN (09:29)
[2019-11-01] MEDS ORDERED: NITROGLYCERIN SL 0.4 MG/TAB TAB SL PRN (09:29)
[2019-11-01] MEDS: lisinopriL 5 MG TAB PO SCH (10:46)
[2019-11-01] MEDS: POLYETHYLENE (MIRALAX) 17 GM PACK PO SCH (10:46)
[2019-11-01] MEDS: CITALOPRAM 20 MG TAB PO SCH (10:47)
[2019-11-01] MEDS: MULTIVITAMIN TAB PO SCH (10:47)
[2019-11-01] MEDS: LEVOTHYROXINE SODIUM 75 MCG TABLET PO SCH (10:47)
[2019-11-01] MEDS: ASPIRIN 81 MG ECTAB PO SCH (10:48)
--- NOTE | 2019-11-01 13:08 | Electrocardiogram Report ---
Test Reason : Blood Pressure : / mmHG Vent. Rate : 088 BPM Atrial Rate : 088 BPM P-R Int : 150 ms QRS Dur : 086 ms QT Int : 382 ms P-R-T Axes : 053 025 074 degrees QTc Int : 462 ms Normal sinus rhythm Nonspecific ST and T wave abnormality Abnormal ECG When compared with ECG of 10-APR-2019 07:42, Non-specific change in ST segment in Inferior leads T wave inversion now evident in Lateral leads Confirmed by Epi Starr ([id number]) on 11/01/2019 1:07:55 PM Referred By: REFERRED SELF Confirmed By:Epi Starr
--- NOTE | 2019-11-01 13:10 | Electrocardiogram Report ---
Test Reason : Blood Pressure : / mmHG Vent. Rate : 069 BPM Atrial Rate : 069 BPM P-R Int : 152 ms QRS Dur : 088 ms QT Int : 426 ms P-R-T Axes : 058 032 069 degrees QTc Int : 456 ms Normal sinus rhythm Normal ECG When compared with ECG of 01-NOV-2019 05:52, (unconfirmed) Non-specific change in ST segment in Lateral leads T wave inversion no longer evident in Lateral leads Confirmed by Epi Starr ([id number]) on 11/01/2019 1:10:04 PM Referred By: REFERRED SELF Confirmed By:Epi Starr
[2019-11-01 16:21] LABS: Influenza A virus by PCR Neg for Influ A (Neg); Influenza B virus by PCR Neg for Influ B (Neg)
[2019-11-01] MEDS: KETOROLAC TROMETHAMINE 15 MG/ML VIAL IV PRN ×2 (16:26→22:08)
[2019-11-01] MEDS: HEPARIN SOD 5,000 UNIT/0.5 ML VIAL SQ SCH ×2 (16:28→20:32)
[2019-11-02] MEDS: LEVOTHYROXINE SODIUM 75 MCG TABLET PO SCH (05:28)
[2019-11-02] MEDS: HEPARIN SOD 5,000 UNIT/0.5 ML VIAL SQ SCH (05:28)
[2019-11-02 06:36] LABS: Hematocrit (blood only) 38.2 % (37-47); Hemoglobin 12.8 g/dL (12.0-16.0); Mean Corpuscular Hemoglobin 31.8 pg (25-34); Mean Corpuscular Hgb Conc 33.5 g/dL (32-36); Mean Corpuscular Volume 94.8 fL (80-100); RDW Coefficient of Variation 13.1 % (11.5-14.5); RDW Standard Deviation 45.2 fL (36.4-46.3); Red Blood Count 4.03 M/uL (4.2-5.4); White Blood Count 5.59 K/uL (4.8-10.8)
[2019-11-02 06:40] LABS: Mean Platelet Volume 10.3 fL (7.4-10.4); Platelet Count 89 K/uL (130-400)
[2019-11-02 07:10] LABS: Basophils # (auto) 0.01 K/uL (0-0.2); Basophils % (auto) 0.2 %; Eosinophils # (auto) 0.12 K/uL (0-0.5); Eosinophils % (auto) 2.1 %; Immature Granulocytes # (auto) 0.01 K/uL (0.00-0.02); Immature Granulocytes % (auto) 0.2 %; Lymphocytes # (auto) 1.39 K/uL (1.2-3.4); Lymphocytes % (auto) 24.9 %; Monocytes # (auto) 0.51 K/uL (0.11-0.59); Monocytes % (auto) 9.1 %; Neutrophils # (auto) 3.55 K/uL (1.4-6.5); Neutrophils % (auto) 63.5 %
[2019-11-02 07:11] LABS: BUN Creatinine Ratio 18.5 (10-20); Calcium 9.1 mg/dl (8.5-10.1); Creatinine Clr Calc Pharmacy 60.2 ml/min; Est GFR (African American) 86.3; Est GFR (Non-African American) 74.5; Potassium 3.9 mmol/L (3.5-5.1)
[2019-11-02] MEDS: CITALOPRAM 20 MG TAB PO SCH (08:30)
[2019-11-02] MEDS: ASPIRIN 81 MG ECTAB PO SCH (08:31)
[2019-11-02] MEDS: MULTIVITAMIN TAB PO SCH (08:32)
[2019-11-02] MEDS: POLYETHYLENE (MIRALAX) 17 GM PACK PO SCH (08:32)
[2019-11-02] MEDS: lisinopriL 5 MG TAB PO SCH (08:32)
[2019-11-02] MEDS ORDERED: ALPRAZolam 0.25 MG TABLET PO ONE (08:42)
--- NOTE | 2019-11-02 17:42 | Discharge Summary ---
Date of Service November 02, 2019 Admission HPI Per Admitting Provider This patient is a 79-year-old female with a history of colon cancer status post partial colectomy and finished chemotherapy in 08/2018, anxiety disorder, hypothyroidism, hypertension, OA, who presents to the ER with substernal chest pain that started at 10 PM last evening. She reports the pain came on while she was lying in bed and is worse with deep inspiration. It radiates to both sides of her neck. It is described as sharp and stabbing and is in 8/10 in severity. It does improve when she sits up and is worse with lying flat. She has some mild nausea associated with it and shortness of breath, but no diaphoresis. Denies cough or chills or sweats or fevers. No headache. She tried to wait it out but the pain got no better and she came into the ER at 6 AM. In the ER, her troponin was negative, she was given nitroglycerin and aspirin and her pain subsided down to a 3 or 4 out of 10. Her ECG however showed some T wave inversions in the lateral leads but otherwise with normal sinus rhythm and blood pressure was mildly elevated. Chest x-ray was normal and CBC, CMP, and d-dimer also normal. A repeat ECG after pain had improved was now with improvement of the T wave inversions. Principal Diagnosis Non-cardiac chest pain Discharge Exam Constitutional WD/WN, vitals as above Eyes PERRL, conjunctivae normal, anicteric sclerae ENMT external ear and nose normal, oropharynx normal Neck trachea midline, no thyromegaly Respiratory normal respiratory effort, lungs clear to auscultation Cardiovascular RRR, no murmur, no edema (No tenderness to palpation over sternum or anterior chest wall) Vessels: no JVD Chest (Breasts) Chest: normal inspection of chest and + vascular access device or port Gastrointestinal (Abdomen) normal bowel sounds, soft, nontender, no hepatosplenomegaly Musculoskeletal Extremities: extremities normal to inspection; no cyanosis and no clubbing Skin no rashes, warm and dry Neurologic moves all extremities and awake; no focal motor deficits Psychiatric A+Ox3, euthymic affect Lymphatic no lymphedema Discharge Data Allergies Allergy/AdvReac Type Severity Reaction Status Date / Time codeine Allergy Severe ANAPHYLAXIS Verified 11/01/19 06:19 paroxetine Allergy Unknown unknown Verified 11/01/19 06:19 Consultations 11/01/19 06:59 ED Decision to Admit Stat Ordered Studies 11/01/19 07:47 CT angio chest dissec wo/w con Stat Hospital Course (1) Substernal chest pain: Patient presents with 8 hours of pleuritic type chest pain that is worse with lying flat and radiates to the neck, worse with inspiration, and not associated with cough. Does have some mild shortness of breath and nausea associated with it, no diaphoresis. - Troponins negative. Echo had normal EF (60-65%) and no wall motion abnormalities. No pericardial effusion. - By 11/02/2019, her chest pain had resolved. She was a low-risk patient, so she was discharged with outpatient follow up. (2) Hypertension: Blood pressures mildly elevated upon admission likely secondary to anxiety. In the morning, it was as high as 220/110. - Per her, her normal home BP is closer to 135-145/70-80. Given the large discrepancy, she was not started on additional BP medications, per recent journal article. (PATRICIA Int Med: Clinical Outcomes After Intensifying Antihypertensive Medication Regimens Among Older Adults at Hospital Discharge) - By discharge, her BP was lower at 170/100. She was asymptomatic. She will follow up with her PCP for BP check in 1 week. (3) Fever: Later on after admission, patient spiked fever to 38.0 and was having a headache and chills. Perhaps her chest pain is related to some sort of early viral syndrome. - Flu swab negative. Blood cultures negative to date. - No further symptoms (4) Hypothyroidism: TSH normal in April. - Continue home dose of levothyroxine 75 mcg daily (5) Anxiety: Stable - Continue citalopram 10 mg daily and Xanax 0.5 mg p.o. nightly (6) Colon cancer: Status post partial colectomy and had 1 lymph node positive -Now has completed course of chemotherapy in 08/2018 -[facility] (7) Thrombocytopenia: Platelets 96 on admission and were 93 in 08/2019. She was noted on a CT scan in the past few months to have splenomegaly - question if she has thrombocytopenia related to hypersplenism. - Stable while inpatient. Follow up with Dr. August as outpatient. (8) DVT prophylaxis: Heparin SQ Total Time Total Time Spent Total Time Spent (In Minutes): 35 Discharge Plan Discharge Items Patient Disposition: Home - Self-Care Reason For Visit: CHEST PAIN Discharge Diagnosis: Chest pain - Non-cardiac in nature Activity: Resume your previous activity Non-emergency contact: Primary Care Provider Call non-emergency contact if: your pain is not controlled and your pain is worsening Follow-up/Referrals: Amado Nunes MD [Primary Care Provider] - Diet: Heart Healthy Addtl Attending Provider Instructions: You were admitted to the hospital with chest pain. We ran a number of tests, and fortunately, your heart is doing very well! Your troponins (heart enzyme) were all negative/normal. This is a good thing and means you did not have a heart attack. The ultrasound of your heart (echo) also looks very good and shows a good squeeze with no areas of concern. Also good! Your last stress test in our system was from 2008 that I see. This is awhile ago and probably doesn't really give us a good sense of your current risk factors. However, you are generally healthy otherwise, and we consider you a "low-risk" patient for any heart issues. If you and Dr. Nunes discuss it, you could consider another stress test in the future. Your blood pressure was up quite high in the hospital; however, you report that usually your blood pressure runs quite good, in the the 135-145 range. You also report that you have had lower blood pressures in the past when on blood pressure medications. As such, we are letting your blood pressure return to normal at home. Please see Dr. Nunes in the next week to discuss the stress test and to check your blood pressure. Pending Studies at Discharge: No Stand-Alone Forms: My [employer], Smoking Cessation Medications and DC Order Prescriptions: Continued multivitamin capsule 1 cap PO DAILY RF: 0 aspirin 81 mg tablet,chewable 81 mg PO Q OTHER DAY RF: 0 citalopram 10 mg tablet 10 mg PO QAM RF: 0 levothyroxine 75 mcg tablet 75 mcg PO QAM RF: 0 alprazolam 0.5 mg tablet 0.5 mg PO HS PRN (Reason: Sleep) RF: 0 lisinopril 5 mg tablet 5 mg PO QAM RF: 0 polyethylene glycol 3350 17 gram/dose powder 17 g PO QAM RF: 0 Glucosamine Chondroitin PLUS 140-825-51-54 mg Capsule 1 cap PO DAILY RF: 0 zolpidem 5 mg tablet 5 mg PO HS PRN (Reason: Insomnia) RF: 0 Discharge Orders: Discharge Order (Routine); Ordered 11/02/19 Ordered By: Dani Diamond/Other Patient Handouts: Inhibitors HAI, Blood Pressure Dc Admission Data Admit Date/Time: 11/01/19 07:47 Attending Provider: Dani Olivares Admit Provider: Corrina Raymond Primary Care Provider: Amado Nunes Other Providers: Dani Olivares Other Interventions: Discharge Summary Assessment (RN) Last Done: 11/02/19 12:01 DC Date/Time DO NOT enter until pt leaves facility: 11/02/19 13:13
== END 2019-11-02 13:13 | disposition home or self-care (01) ==
LOC: ED 05:44 → 2E 05:44 → SUATTDRO 07:47 → 2E 08:46

== ENCOUNTER 2024-08-20 20:07 | Observation (INO) ==
--- NOTE | 2024-08-20 20:14 | Emergency Department Note ---
Impression & Plan Acute left flank pain, Acute left lumbar radiculopathy ED Provider Note NAME: GUANACO PETERSON AGE: 84 SEX: F : 1940 ARRIVES VIA: Ambulance INFORMANT: Patient, EMS ED PROVIDER(S): Epi Casas DO CHIEF COMPLAINT: Flank pain HPI: The patient is an 84-year-old female who presented to the emergency department for an evaluation of flank pain. The patient describes left-sided flank pain that began acutely yesterday. The patient states the pain worsened significantly this evening. This is why she called 911. I did receive a prehospital notification about the patient. She received fentanyl prior to arrival. She was noted to be hypotensive prior to arrival but symptoms have improved. The patient denies having any history of kidney stone. She denies having any hematuria or fever. The patient did receive fentanyl prior to arrival. ROS: See above HPI for pertinent positives & negatives. A total of 10 systems reviewed and were otherwise negative. PAST MEDICAL HISTORY: See Below PAST SURGICAL HISTORY: See Below FAMILY HISTORY: See Below SOCIAL HISTORY: See Below HOME MEDICATIONS: See Below ALLERGIES: See Below VITALS: See Below PHYSICAL EXAMINATION: GENERAL: The patient is awake and alert. The patient is very anxious and appears to be uncomfortable. EYES: The conjunctivae are clear. The pupils are round and reactive. EARS, NOSE, MOUTH AND THROAT: The nose is without any evidence of any deformity. NECK: The neck is nontender and supple. RESPIRATORY: Normal respiratory effort is noted there is no evidence of wheezing rhonchi or rales CARDIOVASCULAR: Regular rate and rhythm noted there no murmurs rubs or gallops normal S1 normal S2. GASTROINTESTINAL: The abdomen is distended. There is diffuse tenderness to palpation. There is left upper quadrant tenderness palpation which is moderate. BACK: No midline tenderness or or step-off noted range of motion in flexion extension as well as rotation no signs of muscle spasm noted MUSCULOSKELETAL/EXTREMITIES: There is no evidence of gross deformity full range of motion is noted in the hips and shoulders. SKIN: There is no obvious evidence of any rash. There are no petechiae, pallor or cyanosis noted. NEUROLOGIC: Patient is awake alert and oriented x3 strength is symmetric patellar reflexes are 2+ bilaterally MEDICAL DECISION MAKING: The patient is an 84-year-old female who presented to the emergency department for an evaluation of back pain. Initially given the patient's acuity of symptoms and the location I thought this could be consistent with renal colic. She appeared to have symmetric reflexes in the lower extremities. The patient had an episode where she lightly fell because she could not put weight on her left leg. I discussed patient's laboratory and radiographic studies with her. No obvious cause for her back pain could be found on CT of the abdomen and pelvis. It is possible this represents more of a musculoskeletal back pain. Given her pain level after multiple doses of IV narcotic pain medication I do not feel the patient would be a good candidate for outpatient management. For this reason I discussed her condition with the on-call [facility] hospitalist. The patient was agreeable with this plan. She may require further inpatient imaging. Triage Nursing notes reviewed. Prior medical records reviewed Vital Signs: reviewed and remarkable for elevated blood pressure. Differential diagnosis: Renal colic, UTI, appendicitis, diverticulitis, mesenteric ischemia, aortic pathology, infections, inflammatory bowel disease, PUD, biliary pathology, as well as other pathologies. ER treatment provided: See below Diagnostics interpreted by me: ECG: EKG was obtained in the emergency department. My interpretation is normal sinus rhythm at [address] segment abnormalities were noted. There is no ectopy. This was compared to a tracing from June 06, 2023. No changes were noted. Cardiac Monitoring: An order was placed for continuous cardiac monitoring. The monitor shows a rate of 66 bpm with sinus rhythm. Laboratory studies: As stated above and show below. Imaging studies: See below. Radiographic imaging was reviewed by myself [facility]ation([facility] Past Med/Surg History Problem List Acute left lumbar radiculopathy (Acute) Acute left flank pain (Acute) Rib pain on right side Excessive cerumen in both ear canals Valvular heart disease ALDANA (dyspnea on exertion) Palpitations Vaginal dryness, menopausal Non-healing skin lesion Cough with fever Routine health maintenance Closed fracture of tuft of distal phalanx of finger Crushing injury of finger of left hand Nailbed laceration, finger History of colonoscopy Lower GI bleed Abnormal CT scan, colon Thank you for allowing us to participate in the care of this patient. If you should have further questions or concerns, do not hesitate to contact us at [email or web address] [phone] or [phone]. DVT prophylaxis Melena Colonic mass Hypothyroidism Colon cancer Encounter for pre-operative examination Lower back pain Stage III carcinoma of colon Substernal chest pain SOB (shortness of breath) Fever History of colon cancer Encounter for pre-operative examination History of colon cancer Arthritis of knee, left Trochanteric bursitis of left hip History of removal of Port-a-Cath (10/24/20) Hearing deficit B/L TRIVEDI Osteoarthritis Hypertension Anxiety History of hemorrhoidectomy Medical History History of colon cancer SURGERY AND CHEMO TX Cardiac murmur HX RHEUMATIC FEVER A CHILD Bulging discs LUMBAR AREA GERD (gastroesophageal reflux disease) Hypothyroid Surgical History History of cataract surgery RT/LEFT Nausea and vomiting after administration of anesthetic agent History of tonsillectomy History of colonoscopy MULTIPLE--last 04/2021 @ [facility] History of cardiac cath 1980S - NO STENTS History of bowel resection 2018 @ [facility] removed 4 inches d/t cancer History of esophagogastroduodenoscopy (EGD) History of appendectomy History of cholecystectomy Family History Brother Aneurysm Sister Family history of diabetes mellitus Cerebral aneurysm Cancer Kidney Grandmother No problems noted. Father Coronary heart disease, Onset Age: 65 CABG Mother Venous thromboembolism Sister Cirrhosis Daughter Family hx colonic polyps Grandmother (Maternal) Family history of diabetes mellitus Other No family history of adverse response to anesthesia Social History Smoking Status: Never smoker Cigarettes Per Day: just as a teenager; Second Hand Exposure: No; Do You Dip or Chew Tobacco: No; Hx Alcohol Use: No Hx Substance Use: No Preferred Language: Polish Communication Ability: Effective Visual Impairment: No Limitations Hearing Ability: Use of Hearing Aid [employer] Required: No Beliefs That Will Affect Care: None marital status: Current Living Situation: Spouse current occupational status: retired current occupation: [employer] How many Children do You have: 2 Feels Safe at Home: Yes Childhood Exposure to Second-Hand Smoke: No Diet: regular caffeine: Yes during the past year weight has: remained stable Dental Care, Regularly: Yes Physical Activity Frequency: Daily Seatbelt Use: always Sunscreen Use: No Assistive Devices: Hearing Aid - Bilateral Allergies Allergies Allergy/AdvReac Type Severity Reaction Status Date / Time No Known Drug Allergies Allergy Mild Verified 08/06/24 12:47 Home Meds Home Medications Medication Instructions Recorded Confirmed polyethylene glycol 3350 17 17 g PO QAM 04/10/19 08/06/24 gram/dose oral powder [id number] 1 cap PO QAM 04/13/19 08/06/24 375 mg-100 mg-36 mg-54 mg capsule (Glucosamine Chondroitin PLUS) aspirin 81 mg chewable tablet 81 mg PO Q OTHER DAY 06/01/19 08/06/24 vitamins A,C,[id number]-rvkrzd 4,296 1 cap PO BID 04/04/23 08/06/24 mcg-226 mg-90 mg capsule (PreserVision AREDS) cholecalciferol (vitamin D3) 25 25 mcg PO DAILY 07/29/23 08/06/24 mcg (1,000 unit) capsule Previous Rx's Medication Instructions Recorded alprazolam 0.5 mg tablet 1 mg (2 x 0.5 mg) PO HS PRN Sleep 01/29/24 #180 tabs amlodipine 5 mg tablet 5 mg PO DAILY #90 tabs 01/29/24 citalopram 10 mg tablet 10 mg PO DAILY #90 tabs 01/29/24 levothyroxine 75 mcg tablet 75 mcg PO QAM #90 tabs 01/29/24 lisinopril 40 mg tablet 40 mg PO DAILY #90 tabs 07/22/24 conjugated estrogens 0.625 mg/gram 0.625 mg vaginal DAILY #30 grams 08/06/24 vaginal cream (Premarin) Results & Data (ED) Vital Signs Vital Signs - 24 hr 08/20/24 19:40 08/20/24 20:20 08/20/24 20:36 Temperature 36.8 C Temperature Source Oral Pulse Rate 70 71 68 Pulse Rate from SpO2 Sensor 68 Respiratory Rate 19 16 Respiratory Effort / Characteristics Non-Labored Spontaneous Respiratory Depth Normal Respiratory Pattern Regular Blood Pressure 159/79 H Blood Pressure Mean 105 Pulse Oximetry 94 97 Oxygen Delivery Method Room Air Sepsis Recent Fever Within 48 Hours No Sepsis New/Unexplained Change in Mental Status No Sepsis Action Taken by Nursing No Action Required 08/20/24 21:07 08/20/24 21:12 08/20/24 21:30 Temperature Temperature Source Pulse Rate 66 69 Pulse Rate from SpO2 Sensor 68 69 Respiratory Rate 12 15 Respiratory Effort / Characteristics Respiratory Depth Respiratory Pattern Blood Pressure 145/75 H Blood Pressure Mean 98 Pulse Oximetry 97 97 94 Oxygen Delivery Method Room Air Sepsis Recent Fever Within 48 Hours Sepsis New/Unexplained Change in Mental Status Sepsis Action Taken by Nursing 08/20/24 22:30 08/20/24 23:00 Temperature Temperature Source Pulse Rate 65 66 Pulse Rate from SpO2 Sensor 64 Respiratory Rate 21 18 Respiratory Effort / Characteristics Respiratory Depth Respiratory Pattern Blood Pressure 148/75 H 163/74 H Blood Pressure Mean 99 114 Pulse Oximetry 97 96 Oxygen Delivery Method Sepsis Recent Fever Within 48 Hours Sepsis New/Unexplained Change in Mental Status Sepsis Action Taken by Retirement Medications Current Medication List: was personally reviewed by me Laboratory Data Attestation: I reviewed the patient's lab results. 08/20/24 20:18 08/20/24 20:18 Lab Results 08/20/24 08/20/24 Range/Units 20:18 Unknown WBC 7.76 (4.8-10.8) K/ul RBC 4.21 (4.20-5.40) M/uL Hgb 12.9 (12.0-16.0) g/dl Hct 37.9 (37.0-47.0) % MCV 90.0 (80.0-100.0) fL MCH 30.6 (25.0-34.0) pg MCHC 34.0 (32.0-36.0) g/dL RDW Std Deviation 38.5 (36.4-46.3) fL RDW Coeff of [place] 11.9 (11.5-14.5) % Plt Count 201 (130-400) K/uL MPV 10.4 (9.4-12.4) fL Immature Gran % (Auto) 0.3 % Neut % (Auto) 75.6 % Lymph % (Auto) 18.8 % Branch % (Auto) 4.4 % Eos % (Auto) 0.5 % Baso % (Auto) 0.4 % Neut # (Auto) 5.87 (1.40-6.50) K/uL Lymph # (Auto) 1.46 (1.20-3.40) K/uL Branch # (Auto) 0.34 (0.11-0.59) K/uL Eos # (Auto) 0.04 (0.00-0.50) K/uL Baso # (Auto) 0.03 (0.00-0.20) K/uL Immature Gran # (Auto) 0.02 (0.01-0.20) K/uL Sodium 138 (136-145) mmol/L Potassium 4.0 (3.5-5.1) mmol/L Chloride 106 (98-107) mmol/L Carbon Dioxide 24 (21-32) mmol/L Anion Gap 8 (3-11) BUN 13 (6-23) mg/dl Creatinine 0.81 (0.6-1.2) mg/dl Est Cr Clr Drug Dosing Not Reportable eGFR 72.43 BUN/Creatinine Ratio 16.0 (10-20) Glucose 105 H (70-99(Fasting)) mg/dl Calcium 9.3 (8.6-10.3) mg/dl Total Bilirubin 0.6 (0.2-1.0) mg/dl AST 18 (13-39) U/L ALT 10 (7-52) U/L Alkaline Phosphatase 82 (34-104) U/L Troponin I High Sens 5.2 (0-14) pg/ml Total Protein 6.7 (6.0-8.3) gm/dl Albumin 4.1 (3.4-5.0) gm/dl Globulin 2.6 (2.5-4.0) gm/dl Albumin/Globulin Ratio 1.6 (0.9-2) Lipase 8 L (11-82) U/L Urine Color Yellow Urine Appearance Clear (Clear) Urine pH 7.5 (4.5-7.5) Ur Specific [place] 1.006 (1.000-1.030) Urine Protein Negative (Negative) Urine Glucose (UA) Negative (Negative) Urine Ketones Negative (Negative) Urine Blood Negative (Negative) Urine Nitrite Negative (Negative) Urine Bilirubin Negative (Negative) Urine Urobilinogen Negative (Negative) Ur Leukocyte Esterase Negative (Negative) Administered Medications Fentanyl Citrate (Fentanyl Citrate Pf 100 Mcg/2 Ml Vial) 50 mcg IV Q15M PRN PRN Reason: Pain Stop: 09/03/24 20:08 Last Admin: 08/20/24 22:55 Dose: 50 mcg Documented By: Admin: 08/20/24 21:30 Dose: 50 mcg Documented By: DOYLE Discontinued Medications Ondansetron HCl (Ondansetron Inj 2 Mg/Ml 2 Ml Vial) 4 mg IV NOW STA Stop: 08/20/24 20:10 Last Admin: 08/20/24 21:30 Dose: 4 mg Documented By: DOYLE Imaging Data Attestation: I personally reviewed and interpreted this imaging study as follows: My Impression: CT of the abdomen and pelvis was obtained in the emergency department. My interpretation is no free air or signs of bowel obstruction, final report below. Radiologist's Impression: Abdomen/Pelvis CT 08/20/24 20:10 Exam(s): CT ABDOMEN + PELVIS Without Contrast EXAM: CT Abdomen and Pelvis Without Intravenous Contrast CLINICAL HISTORY: Reason for exam: lef t flank pain. TECHNIQUE: Axial computed tomography images of the abdomen and pelvis without intravenous contrast. CTDI is 23 mGy and DLP is 1148 mGy-cm. Automated exposure control was utilized for the study. A dose lowering technique was utilized adhering to the principles of ALARA. COMPARISON: 06/06/23 FINDINGS: Lung bases: Unremarkable. ABDOMEN: Liver: Unremarkable. Gallbladder and bile ducts: Gallbladder not visualized, presumed surgically absent. No ductal dilation. Pancreas: Unremarkable. No ductal dilation. Spleen: Unremarkable. No splenomegaly. Adrenals: Unremarkable. No mass. Kidneys and ureters: No hydronephrosis. Nonobstructing 3 mm right kidney stone. Stomach and bowel: No bowel obstruction. Postoperative changes of the sigmoid colon. Scattered colonic diverticula. No mucosal thickening. PELVIS: Appendix: Appendix not visualized. Bladder: Unremarkable. No stones. Reproductive: Retroverted uterus. ABDOMEN and PELVIS: Intraperitoneal space: Unremarkable. No free air, significant free fluid, or fluid collection. Bones/joints: No acute fracture. No dislocation. Soft tissues: Tiny fat-containing umbilical hernia. Vasculature: Atherosclerosis without aortic aneurysm. Lymph nodes: Unremarkable. No enlarged lymph nodes. IMPRESSION: 1. No acute findings in the abdomen or pelvis. 2. Nonobstructing 3 mm left kidney stone. No hydronephrosis. Electronically signed by: Mari Florian M.D. 08/20/24 21:14 PM Chest X-Ray 08/20/24 20:10 SINGLE VIEW CHEST CLINICAL HISTORY: Atypical chest pain FINDINGS: An AP, portable, upright chest radiograph is compared to study dated 01/31/2024 and correlated with chest CT dated 11/01/2019. The examination is degraded by portable technique and apical lordotic positioning. The heart is enlarged. The pulmonary vasculature is noncongested. Chronic interstitial thickening is similar to previous. The lungs and pleural spaces are clear. No pneumothorax is seen. The skeletal structures are osteopenic. The bony thorax is grossly intact. IMPRESSION: Cardiomegaly with no active disease in the chest. ACT 112: Negative or not required by law. Electronically signed by: Jayden Zapata M.D. 08/20/2024 9:14 PM Discharge Plan Visit Data Chief Complaint: Flank Pain Stated Complaint: SEVERE FLANK PAIN ED Provider: Epi Casas Discharge Problem: Acute left flank pain, Acute left lumbar radiculopathy Patient Disposition: Being Evaluated by Hospitalist Forms Stand Alone Forms: My [facility] [employer] Prescriptions Prescriptions: No Action lisinopril 40 mg tablet 40 mg PO DAILY Qty: 90 1RF alprazolam 0.5 mg tablet 1 mg PO HS PRN (Reason: Sleep) Qty: 180 0RF Rx Instructions: PDMP searched, last filled on 10/03/22 for 30 days, okay to fill amlodipine 5 mg tablet 5 mg PO DAILY Qty: 90 4RF citalopram 10 mg tablet 10 mg PO DAILY Qty: 90 1RF levothyroxine 75 mcg tablet 75 mcg PO QAM Qty: 90 5RF cholecalciferol (vitamin D3) 25 mcg (1,000 unit) capsule 25 mcg PO DAILY PreserVision AREDS 4,296 mcg-226 mg-90 mg capsule 1 cap PO BID aspirin 81 mg tablet,chewable 81 mg PO Q OTHER DAY Patient Comments: takes in the am Premarin 0.625 mg/gram cream 0.625 mg vaginal DAILY Qty: 30 0RF Rx Instructions: off 5 days; repeat cycle polyethylene glycol 3350 17 gram/dose powder 17 g PO QAM Glucosamine Chondroitin PLUS 802-581-21-54 mg Capsule 1 cap PO QAM Referrals Referrals: Chen Mayes MD [Primary Care Provider] -
[2024-08-20 20:37] LABS: Basophils # (auto) 0.03 K/uL (0.00-0.20); Basophils % (auto) 0.4 %; Eosinophils # (auto) 0.04 K/uL (0.00-0.50); Eosinophils % (auto) 0.5 %; Hematocrit (blood only) 37.9 % (37.0-47.0); Hemoglobin 12.9 g/dl (12.0-16.0); Immature Granulocytes # (auto) 0.02 K/uL (0.01-0.20); Immature Granulocytes % (auto) 0.3 %; Lymphocytes # (auto) 1.46 K/uL (1.20-3.40); Lymphocytes % (auto) 18.8 %; Mean Corpuscular Hemoglobin 30.6 pg (25.0-34.0); Mean Platelet Volume 10.4 fL (9.4-12.4); Monocytes # (auto) 0.34 K/uL (0.11-0.59); Monocytes % (auto) 4.4 %; Neutrophils # (auto) 5.87 K/uL (1.40-6.50); Neutrophils % (auto) 75.6 %; Platelet Count 201 K/uL (130-400); RDW Coefficient of Variation 11.9 % (11.5-14.5); RDW Standard Deviation 38.5 fL (36.4-46.3); Red Blood Count 4.21 M/uL (4.20-5.40); White Blood Count 7.76 K/ul (4.8-10.8)
[2024-08-20 20:50] LABS: Alanine Aminotransferase 10 U/L (7-52); Albumin Globulin Ratio 1.6 (0.9-2); Albumin Level 4.1 gm/dl (3.4-5.0); Alkaline Phosphatase 82 U/L (34-104); Anion Gap 8 (3-11); Aspartate Aminotransferase 18 U/L (13-39); Bilirubin,Total 0.6 mg/dl (0.2-1.0); Blood Urea Nitrogen 13 mg/dl (6-23); Calcium 9.3 mg/dl (8.6-10.3); Carbon Dioxide 24 mmol/L (21-32); Chloride 106 mmol/L (98-107); Globulin 2.6 gm/dl (2.5-4.0); Glucose 105 mg/dl (70-99(Fasting)); Lipase 8 U/L (11-82); Sodium 138 mmol/L (136-145); Total Protein 6.7 gm/dl (6.0-8.3)
[2024-08-20 20:57] LABS: Troponin I High Sensitivity 5.2 pg/ml (0-14)
--- NOTE | 2024-08-20 21:15 | CT Scan Report ---
Exam(s): CT ABDOMEN + PELVIS Without Contrast EXAM: CT Abdomen and Pelvis Without Intravenous Contrast CLINICAL HISTORY: Reason for exam: lef t flank pain. TECHNIQUE: Axial computed tomography images of the abdomen and pelvis without intravenous contrast. CTDI is 23 mGy and DLP is 1148 mGy-cm. Automated exposure control was utilized for the study. A dose lowering technique was utilized adhering to the principles of ALARA. COMPARISON: 06/06/23 FINDINGS: Lung bases: Unremarkable. ABDOMEN: Liver: Unremarkable. Gallbladder and bile ducts: Gallbladder not visualized, presumed surgically absent. No ductal dilation. Pancreas: Unremarkable. No ductal dilation. Spleen: Unremarkable. No splenomegaly. Adrenals: Unremarkable. No mass. Kidneys and ureters: No hydronephrosis. Nonobstructing 3 mm right kidney stone. Stomach and bowel: No bowel obstruction. Postoperative changes of the sigmoid colon. Scattered colonic diverticula. No mucosal thickening. PELVIS: Appendix: Appendix not visualized. Bladder: Unremarkable. No stones. Reproductive: Retroverted uterus. ABDOMEN and PELVIS: Intraperitoneal space: Unremarkable. No free air, significant free fluid, or fluid collection. Bones/joints: No acute fracture. No dislocation. Soft tissues: Tiny fat-containing umbilical hernia. Vasculature: Atherosclerosis without aortic aneurysm. Lymph nodes: Unremarkable. No enlarged lymph nodes. IMPRESSION: 1. No acute findings in the abdomen or pelvis. 2. Nonobstructing 3 mm left kidney stone. No hydronephrosis. Electronically signed by: Mari Florian M.D. 08/20/24 21:14 PM
--- NOTE | 2024-08-20 21:15 | XRay Report ---
SINGLE VIEW CHEST CLINICAL HISTORY: Atypical chest pain FINDINGS: An AP, portable, upright chest radiograph is compared to study dated 01/31/2024 and correlate d with chest CT dated 11/01/2019. The examination is degraded by portable technique and apical lordotic positioning. The heart is enlarged. The pulmonary vasculature is noncongested. Chronic interstitial thickening is similar to previous. The lungs and pleural spaces are clear. No pneumothorax is seen. T he skeletal structures are osteopenic. The bony thorax is grossly intact. IMPRESSION: Cardiomegaly with no active disease in the chest. ACT 112: Negative or not required by law. Electronically signed by: Jayden Zapata M.D. 08/20/2024 9:14 PM
[2024-08-20 21:26] LABS: Appearance Urine Clear (Clear); Bilirubin Urine Negative (Negative); Blood Urine Negative (Negative); Color Urine Yellow; Glucose Urine UA Negative (Negative); Ketones Urine Negative (Negative); Leukocyte Esterase Urine Negative (Negative); Nitrite Urine Negative (Negative); Protein Urine Negative (Negative); Specific Gravity Urine 1.006 (1.000-1.030); Urobilinogen Urine Negative (Negative); pH Urine 7.5 (4.5-7.5)
[2024-08-20] MEDS: fentaNYL citrate PF 100 MCG/2 ML VIAL IV PRN (21:30)
[2024-08-20] MEDS: ONDANSETRON INJ 2 MG/ML 2 ML VIAL IV STA (21:30)
--- NOTE | 2024-08-20 23:43 | History & Physical Report ---
Date of Service August 20, 2024 Assessment & Plan (1) Acute left lumbar radiculopathy: (2) Acute left flank pain: (3) Hypothyroid: (4) Anxiety: (5) Hypertension: Plan Left Sided Lower Back Pain -History of chronic lumbar back pain/disc issues -Recently started playing the accordion this past week, has noticed pain in the area every day after playing it -Some radiation down back of left leg, has experienced this previously with prior low back pain -Pain will sometimes also be present at left lower quadrant region, worse with flexion of abdominal muscles -CT A/P shows 3mm left nonobstructing kidney stone, but with normal UA, no hydronephrosis, small size of stone this seems unlikely to be etiology -Suspect symptoms are related to muscle spasm/strain -Analgesia with Tylenol, IV Toradol, and oxycodone for breakthrough pain. Will added Tizanidine for muscle spasms, lidocaine patch PRN -XR of lumbar spine/pelvis ordered, will defer MRI imaging at this time Hypothyroidism -Continue levothyroxine Anxiety -Continue Citalopram, Xanax PRN HS Hypertension -Continue Lisinopril, Amlodipine Admit to medical Diet: Heart healthy VTE Prophylaxis: SCDs Code Status: Full Code History of Present Illness Primary Care Provider: Chen Mayes MD Anna Harrison is a 84 year-old female who presented to the ED due to worsening left sided flank pain. Medical history is significant for HTN, anxiety, history of colon cancer, hypothyroidism. She reports that she recently started to teach herself how to play the accordion, had been a bit sore in her lower back in the days since starting this. However ~24 hours ago the left sided flank/lower back pain worsened significantly, since it had not improved by this evening she decided to go to the ER for evaluation. Patient reports history of several bulging discs in her lumbar spine, however she hasn't needed any injections/interventions for this chronic issue in about 10 years. States she thinks it was the weight of the accordion aggravating her lower back for several days that has caused her pain to be this bad. Denies any improvement with ibuprofen. Endorses some radiation of pain down the back of her left leg, states she has experienced this before with prior back issue. Notes some pain at left lower quadrant/pelvic region, worse with flexing her abdominal muscles. Denies saddle paresthesias, denies loss of bowel or bladder control. Denies changes in bowel habits, denies dysuria. Denies shortness of breath or chest pain. ED Course: -Chest x-ray, CT A/P -CBC, CMP, UA Allergies Allergy/AdvReac Type Severity Reaction Status Date / Time No Known Drug Allergies Allergy Mild Verified 08/06/24 12:47 Home Medications Medication Instructions Recorded Confirmed Type polyethylene glycol 3350 17 17 g PO QAM 04/10/19 08/06/24 History gram/dose oral powder [id number]-[id number]-[id number]-xoma-sterols 1 cap PO QAM 04/13/19 08/06/24 History 375 mg-100 mg-36 mg-54 mg capsule (Glucosamine Chondroitin PLUS) aspirin 81 mg chewable tablet 81 mg PO Q OTHER DAY 06/01/19 08/06/24 History vitamins A,C,Z-qmjk-gqutoe 4,296 1 cap PO BID 04/04/23 08/06/24 History mcg-226 mg-90 mg capsule (PreserVision AREDS) cholecalciferol (vitamin D3) 25 25 mcg PO DAILY 07/29/23 08/06/24 History mcg (1,000 unit) capsule alprazolam 0.5 mg tablet 1 mg (2 x 0.5 mg) PO HS PRN Sleep 01/29/24 08/06/24 Rx #180 tabs amlodipine 5 mg tablet 5 mg PO DAILY #90 tabs 01/29/24 08/06/24 Rx citalopram 10 mg tablet 10 mg PO DAILY #90 tabs 01/29/24 08/06/24 Rx levothyroxine 75 mcg tablet 75 mcg PO QAM #90 tabs 01/29/24 08/06/24 Rx lisinopril 40 mg tablet 40 mg PO DAILY #90 tabs 07/22/24 08/06/24 Rx conjugated estrogens 0.625 mg/gram 0.625 mg vaginal DAILY #30 grams 08/06/24 08/06/24 Rx vaginal cream (Premarin) tizanidine 4 mg tablet 2 mg (1/2 x 4 mg) PO Q8H PRN 08/21/24 Rx muscle spasticity #10 tabs Past Med/Surg History Problem List Acute left lumbar radiculopathy (Acute) Acute left flank pain (Acute) Rib pain on right side Excessive cerumen in both ear canals Valvular heart disease ALDANA (dyspnea on exertion) Palpitations Vaginal dryness, menopausal Non-healing skin lesion Cough with fever Routine health maintenance Closed fracture of tuft of distal phalanx of finger Crushing injury of finger of left hand Nailbed laceration, finger History of colonoscopy Lower GI bleed Abnormal CT scan, colon Thank you for allowing us to participate in the care of this patient. If you should have further questions or concerns, do not hesitate to contact us at extension [phone] or [phone]. DVT prophylaxis Melena Colonic mass Hypothyroidism Colon cancer Encounter for pre-operative examination Lower back pain Stage III carcinoma of colon Substernal chest pain SOB (shortness of breath) Fever History of colon cancer Encounter for pre-operative examination History of colon cancer Arthritis of knee, left Trochanteric bursitis of left hip History of removal of Port-a-Cath (10/24/20) Hearing deficit B/L TRIVEDI Osteoarthritis Hypertension Anxiety History of hemorrhoidectomy Medical History History of colon cancer SURGERY AND CHEMO TX Cardiac murmur HX RHEUMATIC FEVER A CHILD Bulging discs LUMBAR AREA GERD (gastroesophageal reflux disease) Hypothyroid Surgical History History of cataract surgery RT/LEFT Nausea and vomiting after administration of anesthetic agent History of tonsillectomy History of colonoscopy MULTIPLE--last 04/2021 @ [facility] History of cardiac cath 1980S - NO STENTS History of bowel resection 2018 @ [facility] removed 4 inches d/t cancer History of esophagogastroduodenoscopy (EGD) History of appendectomy History of cholecystectomy Family History Brother Aneurysm Sister Family history of diabetes mellitus Cerebral aneurysm Cancer Kidney Grandmother No problems noted. Father Coronary heart disease, Onset Age: 65 CABG Mother Venous thromboembolism Sister Cirrhosis Daughter Family hx colonic polyps Grandmother (Maternal) Family history of diabetes mellitus Other No family history of adverse response to anesthesia Social History Smoking Status: Never smoker Cigarettes Per Day: just as a teenager; Second Hand Exposure: No; Do You Dip or Chew Tobacco: No; Hx Alcohol Use: No Hx Substance Use: No Preferred Language: Divehi Communication Ability: Effective Visual Impairment: No Limitations Hearing Ability: Use of Hearing Aid Inside Sales Territory Manager Required: No Beliefs That Will Affect Care: None marital status: Current Living Situation: Spouse current occupational status: retired current occupation: [employer] How many Children do You have: 2 Feels Safe at Home: Yes Childhood Exposure to Second-Hand Smoke: No Diet: regular caffeine: Yes during the past year weight has: remained stable Dental Care, Regularly: Yes Physical Activity Frequency: Daily Seatbelt Use: always Sunscreen Use: No Assistive Devices: Hearing Aid - Bilateral Review of Systems Review of Systems: as per above Physical Exam Constitutional: WD/WN, vitals as above Eyes: + anicteric sclerae; no conjunctival abn ormality ENMT: Ears: no external ear abnormality Nose: no external nose abnormality Moist mucous membranes Respiratory: normal respiratory effort, lungs clear to auscultation Cardiovascular: Rate/Rhythm: regular rate and regular rhythm No lower extremity edema Gastrointestinal (Abdomen): Mild tenderness to palpation of LLQ. No masses palpated. Nondistended, soft to palpation. Musculoskeletal: No tenderness to palpation of spinous processes of lumbar spine. Hypertonciity of left sided lumbar paraspinal musculature. Straight leg test positive at 45 degrees on left side. Normal strength and tone of bilateral lower extremities. Skin: no rashes, warm and dry Neurologic: No focal defects appreciated Psychiatric: A+Ox3, euthymic affect Results & Data Results & Data Vital Signs (Past 12 Hours) Vital Signs Temp Pulse Resp BP Pulse Ox O2 Del Method 08/20/24 23:00 66 18 163/74 H 96 08/20/24 22:30 65 21 148/75 H 97 08/20/24 21:30 69 15 145/75 H 94 08/20/24 21:12 66 12 97 08/20/24 21:07 97 Room Air 08/20/24 20:36 68 16 97 08/20/24 20:20 71 08/20/24 19:40 36.8 C 70 19 159/79 H 94 Room Air Diagnostic Findings Abdomen/Pelvis CT 08/20/24 20:10 Exam(s): CT ABDOMEN + PELVIS Without Contrast EXAM: CT Abdomen and Pelvis Without Intravenous Contrast CLINICAL HISTORY: Reason for exam: lef t flank pain. TECHNIQUE: Axial computed tomography images of the abdomen and pelvis without intravenous contrast. CTDI is 23 mGy and DLP is 1148 mGy-cm. Automated exposure control was utilized for the study. A dose lowering technique was utilized adhering to the principles of ALARA. COMPARISON: 06/06/23 FINDINGS: Lung bases: Unremarkable. ABDOMEN: Liver: Unremarkable. Gallbladder and bile ducts: Gallbladder not visualized, presumed surgically absent. No ductal dilation. Pancreas: Unremarkable. No ductal dilation. Spleen: Unremarkable. No splenomegaly. Adrenals: Unremarkable. No mass. Kidneys and ureters: No hydronephrosis. Nonobstructing 3 mm right kidney stone. Stomach and bowel: No bowel obstruction. Postoperative changes of the sigmoid colon. Scattered colonic diverticula. No mucosal thickening. PELVIS: Appendix: Appendix not visualized. Bladder: Unremarkable. No stones. Reproductive: Retroverted uterus. ABDOMEN and PELVIS: Intraperitoneal space: Unremarkable. No free air, significant free fluid, or fluid collection. Bones/joints: No acute fracture. No dislocation. Soft tissues: Tiny fat-containing umbilical hernia. Vasculature: Atherosclerosis without aortic aneurysm. Lymph nodes: Unremarkable. No enlarged lymph nodes. IMPRESSION: 1. No acute findings in the abdomen or pelvis. 2. Nonobstructing 3 mm left kidney stone. No hydronephrosis. Electronically signed by: Mari Florian M.D. 08/20/24 21:14 PM Chest X-Ray 08/20/24 20:10 SINGLE VIEW CHEST CLINICAL HISTORY: Atypical chest pain FINDINGS: An AP, portable, upright chest radiograph is compared to study dated 01/31/2024 and correlated with chest CT dated 11/01/2019. The examination is degraded by portable technique and apical lordotic positioning. The heart is enlarged. The pulmonary vasculature is noncongested. Chronic interstitial thickening is similar to previous. The lungs and pleural spaces are clear. No pneumothorax is seen. The skeletal structures are osteopenic. The bony thorax is grossly intact. IMPRESSION: Cardiomegaly with no active disease in the chest. ACT 112: Negative or not required by law. Electronically signed by: Jayden Zapata M.D. 08/20/2024 9:14 PM Supervising Physician Co-Signing Physician Notes Attending addendum: I have physically seen this patient, have supervised the medical residents activities, and agree with the H&P unless as otherwise noted. Assessment and Plan: Chronic low back pain/left lower extremity radiculopathy- Prior history, may be associated with physical process of playing the accordion Acetaminophen 650 mg by mouth every 6 hours as needed for mild pain or fever Toradol 10 mg IV every 6 hours as needed for moderate pain Oxycodone 5 mg by mouth every 6 hours as needed for breakthrough pain Tizanidine as needed muscle spasms Lidocaine patch applied to lumbar area as needed for pain No abnormality of lumbar sacral spine noted on CT scan of the abdomen/pelvis Order x-ray of lumbar spine and pelvis, depending on results, may need an MRI later on 3 mm left nonobstructing kidney stone- As noted on CT scan of the abdomen pelvis No hydronephrosis, normal urinalysis, unlikely cause of her pain Hypertension- Continue lisinopril and amlodipine Anxiety- Continue citalopram Continue Xanax at bedtime as needed Resident Activity Tracking Resident Involvement: Resident Care Provided Care Provided: Adult Hospital Medicine (5) Hypertension Hypertension type: primary hypertension Qualified Code(s): I10 - Essential (primary) hypertension
[2024-08-21] MEDS ORDERED: ONDANSETRON INJ 2 MG/ML 2 ML VIAL IV PRN (02:27)
[2024-08-21] MEDS ORDERED: LIDOCAINE 5% 1 PATCH TD PRN (02:27)
[2024-08-21] MEDS ORDERED: ALPRAZolam 0.5 MG TABLET PO PRN (02:27)
[2024-08-21] MEDS ORDERED: KETOROLAC TROMETHAMINE 15 MG/ML VIAL IV PRN (02:27)
[2024-08-21] MEDS ORDERED: MELATONIN 3 MG TAB PO PRN (02:27)
[2024-08-21] MEDS ORDERED: ALUMINUM/MAGNESIUM SUSP 30 ML UDC PO PRN (02:27)
[2024-08-21] MEDS: oxyCODONE HCL IR 5 MG TAB (IMMEDIATE RELEASE) PO PRN (03:58)
[2024-08-21] MEDS: LEVOTHYROXINE SODIUM 75 MCG TABLET PO SCH (05:33)
[2024-08-21] MEDS: tiZANidine HCL 4 MG TABLET PO PRN (05:33)
--- NOTE | 2024-08-21 07:15 | XRay Report ---
XR pelvis 1-2V routine CLINICAL HISTORY: pain at right side of pelvis TECHNIQUE: A single frontal view of the pelvis was obtained. Comparison: None available at the time of this dictation. FINDINGS: There is no evidence of an acute fracture. Degenerative changes are seen in the hip joints and lumbar spine. No soft tissue abnormality is seen. IMPRESSION: No evidence of acute osseous injury. ACT 112: Negative or not required by law. Electronically signed by: Margarito Kimbrough M.D. 08/21/2024 7:13 AM
--- NOTE | 2024-08-21 08:30 | XRay Report ---
LUMBAR SPINE 3 VIEWS CLINICAL HISTORY: Low back pain. FINDINGS: Three views of the lumbar spine are correlated with abdominal CT dated 08/20/2024. The skel etal structures are osteopenic. There is no radiographic evidence of fracture or malalignment. Verteb ral body height and alignment are maintained. Anterior and lateral marginal osteophytes are seen thro ughout. The transverse and spinous processes appear intact. Mild facet arthropathy is noted in the lo wer lumbar region. The disc spaces appear maintained. The visualized bony pelvis appears intact. Dege nerative sclerosis is noted in the sacroiliac joints. Mild arthritic change is seen in the hips. Ther e is no bowel obstruction. IMPRESSION: 1. No acute bony abnormality is seen involving the lumbar spine. 2. Osteopenia and mild degenerative change as above. Dictated: 08/21/2024 7:49 AM Transcribed: 08/21/2024 8:26 AM [facility] [id number] [facility] Electronically signed by: Jayden Zapata M.D. 08/21/2024 8:27 AM
[2024-08-21 08:37] VITALS: BP 103/58; PULSE 67; RESP 16; TEMP 98.1; O2SAT 96
[2024-08-21] MEDS: CITALOPRAM 20 MG TAB PO SCH (09:04)
[2024-08-21] MEDS: amLODIPine BESYLATE 5 MG TAB PO SCH (09:04)
[2024-08-21] MEDS: lisinopril 40 MG TAB PO SCH (09:04)
[2024-08-21] MEDS: POLYETHYLENE (MIRALAX) 17 GM PACK PO SCH (09:07)
[2024-08-21] MEDS: ACETAMINOPHEN 325 MG TAB PO PRN (10:40)
--- NOTE | 2024-08-21 13:32 | Hospitalist Progress Note ---
Date of Service August 21, 2024 Assessment & Plan (1) Acute left lumbar radiculopathy: Plan: 84-year-old female with PMHx chronic lumbar back pain/disc issues; new activity includes playing accordion; presented with severe L sided back pain -Some radiation down back of left leg, has experienced this previously with prior low back pain -Pain will sometimes also be present at left lower quadrant region, worse with flexion of abdominal muscles -CT A/P shows 3mm left nonobstructing kidney stone, but with normal UA, no hydronephrosis, small size of stone this seems unlikely to be etiology -Suspect symptoms are related to muscle spasm/strain -Analgesia with Tylenol, IV Toradol, and oxycodone for breakthrough pain. Will added Tizanidine for muscle spasms, lidocaine patch PRN -XR of lumbar spine/pelvis ordered, will defer MRI imaging at this time (2) Acute left flank pain: (3) Hypothyroid: (4) Anxiety: (5) Hypertension: Plan Hypothyroidism -Continue levothyroxine Anxiety -Continue Citalopram, Xanax PRN HS Hypertension -Continue Lisinopril, Amlodipine Dispo: Pending clinical improvement of symptoms VTE Prophylaxis: SCDs Code: Full Admission and Anticipated Discharge Date Admission Date: August 21, 2024 Subjective Pt is [] at time of visit. States that [he/she] is experiencing []. No new concerns from nursing. Review of Systems Review of Systems: All systems reviewed & are unremarkable except as noted in Subjective Results & Data Results & Data Vital Signs (Past 12 Hours) Vital Signs Temp Pulse Resp BP Pulse Ox O2 Del Method 08/21/24 08:36 36.7 C 67 16 103/58 L 96 Room Air 08/21/24 02:32 37.1 C 66 14 166/74 H 95 Room Air 08/21/24 02:20 Room Air Diagnostic Findings Reviewed CBC and CMP PG Care Time/CCT Total # of Minutes Spent Total Time Spent with Patient: Total time spent is greater than 50% in coordination of care (as documented) at patient's floor/unit and/or counseling patient: Coding Diagnoses Acute left lumbar radiculopathy M54.16 Acute left flank pain R10.9 Hypothyroid E03.9 Anxiety F41.9 Primary hypertension I10 Hypertension type: primary hypertension (5) Hypertension Hypertension type: primary hypertension Qualified Code(s): I10 - Essential (primary) hypertension
--- NOTE | 2024-08-21 13:59 | Discharge Summary ---
Discharge Summary Date of Service August 21, 2024 Principal Dx & Hospital Course #1 = Principal Diagnosis (1) Acute left lumbar radiculopathy: 84-year-old female PMHx chronic lumbar back pain/disc abnormalities. Sudden onset of severe left-sided back pain, had radiated to left lower quadrant. New activities include learning to play accordion. - Mild radiation of pain down left leg; LLQ pain slightly worse with flexion abdominal muscle. - CT A/P: 3mm L nonobstructing kidney stone; normal UA, no hydronephrosis; it is possible that the patient may have passed a small renal calculi causing the pain which is why the pain was suddenly relieved - Suspect symptoms are also related to some component of muscle spasm/strain - Pain control managed with medications; sent prescription of Zanaflex for muscle spasm relief - XR of lumbar spine/pelvis WNL; defer MRI imaging at this time - Recommend outpatient PT; prescription sent with patient - Follow up with PCP to determine necessity of MRI 08/21: Patient resting bed at time of visit. is at bedside. Reports that her pain has completely subsided since this a.m, and no longer has nausea. Denies ongoing back or abdominal pain, no urinary symptoms, no numbness tingling. Does report that she has been using a strainer for her urine to check for possible renal calculi. Otherwise denies N/V/D, chest pain, shortness of breath, headache, or additional symptoms. Complete patient education of current condition and management was provided. All questions that the patient asked were answered, and the patient demonstrated complete understanding. Plan Hypothyroidism - Continue levothyroxine Anxiety - Continue Citalopram, Xanax PRN HS Hypertension - Continue Lisinopril, Amlodipine Dispo: Medically stable for discharge, discharge home today VTE Prophylaxis: SCDs Code: Full Notes For Next Care Provider Physical therapy outpatient prescription given Medication Changes From Visit Added Zanaflex for muscle spasms Admission HPI Per Admitting Provider Anna Harrison is a 84 year-old female who presented to the ED due to worsening left sided flank pain. Medical history is significant for HTN, anxiety, history of colon cancer, hypothyroidism. She reports that she recently started to teach herself how to play the accordion, had been a bit sore in her lower back in the days since starting this. However ~24 hours ago the left sided flank/lower back pain worsened significantly, since it had not improved by this evening she decided to go to the ER for evaluation. Patient reports history of several bulgi ng discs in her lumbar spine, however she hasn't needed any injections/interventions for this chronic issue in about 10 years. States she thinks it was the weight of the accordion aggravating her lower back for several days that has caused her pain to be this bad. Denies any improvement with ibuprofen. Endorses some radiation of pain down the back of her left leg, states she has experienced this before with prior back issue. Notes some pain at left lower quadrant/pelvic region, worse with flexing her abdominal muscles. Denies saddle paresthesias, denies loss of bowel or bladder control. Denies changes in bowel habits, denies dysuria. Denies shortness of breath or chest pain. ED Course: -Chest x-ray, CT A/P -CBC, CMP, UA Admission Exam Per Admitting Provider Constitutional: WD/WN, vitals as above Eyes: + anicteric sclerae; no conjunctival abnormality ENMT: Ears: no external ear abnormality Nose: no external nose abnormality Moist mucous membrane Respiratory: normal respiratory effort, lungs clear to auscultation Cardiovascular: Rate/Rhythm: regular rate and regular rhythm No lower extremity edema Gastrointestinal (Abdomen): Mild tenderness to palpation of LLQ. No masses palpated. Nondistended, soft to palpation. Musculoskeletal: No tenderness to palpation of spinous processes of lumbar spine. Hypertonciity of left sided lumbar paraspinal musculature. Straight leg test positive at 45 degrees on left side. Normal strength and tone of bilateral lower extremities. Skin: no rashes, warm and dry Neurologic: No focal defects appreciated Psychiatric: A+Ox3, euthymic affect Discharge Exam General: No acute distress, well developed. Skin: Warm and dry, without rashes or lesions. No cyanosis or clubbing Head: Normocephalic, atraumatic Eyes: PERRL, conjunctivae clear, sclera non-icteric; EOM intact Neck: Supple, no LAD; no JVD Cardio: RRR, no M/G/R, S1 and S2 normal Resp: Chest wall symmetric, normal respiratory effort; No respiratory distress, Lungs CTA in all lobes bilaterally, no wheezes, rales, or rhonchi Abdomen: Soft, symmetric, nontender; no distention; No masses or hepatosplenomegaly Genital: Deferred MSK: No deformities, full ROM throughout; sensation normal to UE/LE. Pulses palpable and equal; No edema; no tenderness to palpation of spinous processes; gait leg test negative on both sides Neuro: Awake, alert; Sensation intact bilaterally; CN intact Psych: Appropriate mood and affect; good judgement and insight. sitting at bedside during visit Discharge Plan Discharge Items Patient Disposition: Home - Self-Care Reason For Visit: BACK AND FLANK PAIN Discharge Diagnosis: Acute on chronic back pain-possible passed kidney stone Activity: Resume your previous activity Lifting: Gradually increase as tolerated Non-emergency contact: Primary Care Provider Call non-emergency contact if: you have any medication questions, your symptoms worsen, your pain is not controlled, your pain is worsening, your pain is unusual for you and your pain is concerning for you Follow-up/Referrals: Chen Mayes MD [Primary Care Provider] - 08/28/24 12:00 pm (Please follow up with PCP within 1-2 weeks to determine if MRI is needed. ) Diet: Heart Healthy Addtl Attending Provider Instructions: You were diagnosed and treated for acute back pain. Treatment included managing the pain. Imaging of your back revealed no acute finding. Imaging of your abdomen/pelvis did reveal a small, nonobstructing left kidney stone. There is a possibility that you passed a kidney stone that resulted in this pain and symptoms as well. You are being discharged home with a prescription for oxycodone as needed to manage the pain. Please do not operate a vehicle or heavy machinery if this pain has been taken within the day. A prescription will be provided with you at discharge for physical therapy. Please take it to physical therapy office of your choice and follow-up with the therapists' recommendations. Please follow-up with PCP within 1 to 2 weeks regarding recent hospitalization. MRI was not ordered at this time, however we will leave the decision for this additional imaging up to the PCP. If you notice blood in your urine or intense pain with urination, please call PCP for advice. If you notice increased pain, worsening of symptoms, or numbness/tingling/weakness associated with your back pain, please call your PCP for advice or return to the ED. Emergent symptoms include: severe back pain with associated loss of bowel/bladder control or associated abnormal sensation to groin/buttocks area. Go to ED immediately if these symptoms occur. Pending Studies at Discharge: No Stand-Alone Forms: My [facility] Medications and DC Order Prescriptions: New tizanidine 4 mg Tablet 2 mg PO Q8H PRN (Reason: muscle spasticity) Qty: 10 0RF Continued lisinopril 40 mg tablet 40 mg PO DAILY Qty: 90 1RF alprazolam 0.5 mg tablet 1 mg PO HS PRN (Reason: Sleep) Qty: 180 0RF Rx Instructions: PDMP searched, last filled on 10/03/22 for 30 days, okay to fill amlodipine 5 mg tablet 5 mg PO DAILY Qty: 90 4RF citalopram 10 mg tablet 10 mg PO DAILY Qty: 90 1RF levothyroxine 75 mcg tablet 75 mcg PO QAM Qty: 90 5RF cholecalciferol (vitamin D3) 25 mcg (1,000 unit) capsule 25 mcg PO DAILY PreserVision AREDS 4,296 mcg-226 mg-90 mg capsule 1 cap PO BID aspirin 81 mg tablet,chewable 81 mg PO Q OTHER DAY Patient Comments: takes in the am Premarin 0.625 mg/gram cream 0.625 mg vaginal DAILY Qty: 30 0RF Rx Instructions: off 5 days; repeat cycle polyethylene glycol 3350 17 gram/dose powder 17 g PO QAM Glucosamine Chondroitin PLUS [id number] mg Capsule 1 cap PO QAM Discharge Orders: Discharge Order (Routine); Ordered 08/21/24 Ordered By: Corrina Diamond/Other Patient Handouts: Back Safety Bed, Back Care Every Day Admission Data Admit Date/Time: 08/21/24 00:18 Attending Provider: Corrina Raymond Admit Provider: Naila Hines Primary Care Provider: Chen Mayes Other Providers: Taras Barrow Other Interventions: Discharge Summary Assessment (RN) Last Done: 08/21/24 14:55 Hospital Stay Data Consultations 08/20/24 23:00 ED Decision to Admit Stat Diagnostic Imagining Performed 08/20/24 20:10 CT abd pelvis wo con Stat Discharge Instructions Given to Patient (Per Discharging Provider) You were diagnosed and treated for acute back pain. Treatment included managing the pain. Imaging of your back revealed no acute finding. Imaging of your abdomen/pelvis did reveal a small, nonobstructing left kidney stone. There is a possibility that you passed a kidney stone that resulted in this pain and symptoms as well. You are being discharged home with a prescription for oxycodone as needed to manage the pain. Please do not operate a vehicle or heavy machinery if this pain has been taken within the day. A prescription will be provided with you at discharge for physical therapy. Please take it to physical therapy office of your choice and follow-up with the therapists' recommendations. Please follow-up with PCP within 1 to 2 weeks regarding recent hospitalization. MRI was not ordered at this time, however we will leave the decision for this additional imaging up to the PCP. If you notice blood in your urine or intense pain with urination, please call PCP for advice. If you notice increased pain, worsening of symptoms, or numbness/tingling/weakness associated with your back pain, please call your PCP for advice or return to the ED. Emergent symptoms include: severe back pain with associated loss of bowel/bladder control or associated abnormal sensation to groin/buttocks area. Go to ED immediately if these symptoms occur. Supervising Physician Co-Signing Physician Notes PIERO Supervision Note: I personally saw and examined the patient. I verified all kevin points and agree with PIERO Moran with the following exceptions and/or additions: S-Pt feeling completely well, no pain at all. It went away as fast as it came on 2 days ago. She had associated nausea and dry heaves. Suspect possible small, passed kidney stone that was not seen on CT? Stable for discharge to home O- Vitals reviewed Gen: [AAOx3, NAD] HEENT: [anicteric sclerae, EOMI] CV: [RRR no mgr nl S1S2] Pulm: [CTAB no wcr] Abd: [+BS soft NT ND no masses or hernias] Ext: [no edema, 2+ DP pulses] Skin: [no rashes, warm/dry] Neuro: [full strength throughout] CBC, BMP reviewed A/P-84 yo female here with acute left lower abd and left lower back pain, radiating down left groin and thigh, with nausea. Now compeltely resolved. Stable for dc to home Total Time Total Time Spent Total Time Spent (In Minutes): 40 Total Time Includes: Examination of the Patient, Discharge Planning, Medication Reconciliation and Communication With Other Providers Coding Level of Care Code 19076 INP/OBS DISCH >30 MIN Diagnoses Acute left lumbar radiculopathy M54.16 Time Spent (min) 40
--- NOTE | 2024-08-22 00:44 | Electrocardiogram Report ---
Test Reason : Blood Pressure : */* mmHG Vent. Rate : 72 BPM Atrial Rate : 72 BPM P-R Int : 178 ms QRS Dur : 84 ms QT Int : 418 ms P-R-T Axes : 66 51 66 degrees QTcB Int : 457 ms Normal sinus rhythm When compared with ECG of 06-Jun-2023 13:40, Anterior T wave abnormality has improved Confirmed by Kirill Bautista ([id number]) on 08/22/2024 12:43:58 AM Referred By: REFERRED SELF Confirmed By: Kirill Bautista
--- NOTE | 2024-08-22 00:44 | Billing Data ---
Date of Service August 22, 2024 Coding Level of Care Code 26000 INT INP/OBS CARE
== END 2024-08-21 15:32 | disposition home or self-care (01) ==
LOC: ED 20:07 → 3N 20:07 → SUATTDRO 08-21 00:18 → 3N 08-21 02:20

== ENCOUNTER 2025-02-02 15:10 | Inpatient (IN) ==
--- NOTE | 2025-02-02 15:55 | XRay Report ---
XR chest 1V not portable CLINICAL HISTORY: Weakness COMPARISON STUDY: 08/20/2024 FINDINGS: Heart size and pulmonary vasculature are normal. No effusion, consolidation, or pneumothora x. IMPRESSION: No acute findings. ACT 112: Negative or not required by law. Electronically signed by: Garcia Chacon M.D. 02/02/2025 3:54 PM
[2025-02-02 15:57] LABS: Basophils # (auto) 0.04 K/uL (0.00-0.20); Basophils % (auto) 0.6 %; Eosinophils # (auto) 0.14 K/uL (0.00-0.50); Eosinophils % (auto) 2.1 %; Hematocrit (blood only) 40.5 % (37.0-47.0); Hemoglobin 13.5 g/dl (12.0-16.0); Immature Granulocytes # (auto) 0.01 K/uL (0.01-0.20); Immature Granulocytes % (auto) 0.2 %; Lymphocytes # (auto) 1.65 K/uL (1.20-3.40); Lymphocytes % (auto) 25.1 %; Mean Corpuscular Hemoglobin 30.6 pg (25.0-34.0); Mean Corpuscular Hgb Conc 33.3 g/dL (32.0-36.0); Mean Corpuscular Volume 91.8 fL (80.0-100.0); Mean Platelet Volume 10.2 fL (9.4-12.4); Monocytes # (auto) 0.34 K/uL (0.11-0.59); Monocytes % (auto) 5.2 %; Neutrophils % (auto) 66.8 %; Platelet Count 220 K/uL (130-400); RDW Coefficient of Variation 12.3 % (11.5-14.5); RDW Standard Deviation 41.4 fL (36.4-46.3); Red Blood Count 4.41 M/uL (4.20-5.40); White Blood Count 6.58 K/ul (4.8-10.8)
[2025-02-02 16:08] LABS: Appearance Urine Clear (Clear); Bacteria Urine Automated None Seen (None Seen); Bilirubin Urine Negative (Negative); Blood Urine Trace (Negative); Cast Urine Automated 0-2 /lpf (0-2); Color Urine Yellow; Epithelial Cell Urine Auto 0-2 /hpf (0-2); Glucose Urine UA Negative (Negative); Ketones Urine Negative (Negative); Leukocyte Esterase Urine Negative (Negative); Nitrite Urine Negative (Negative); Protein Urine Negative (Negative); RBC Urine Automated 0-2 /hpf (0-2); Specific Gravity Urine 1.007 (1.000-1.030); Urobilinogen Urine Negative (Negative); WBC Urine Automated 0-5 /hpf (0-5); pH Urine 5.5 (4.5-7.5)
[2025-02-02 16:12] LABS: Alanine Aminotransferase 13 U/L (7-52); Albumin Globulin Ratio 1.8 (0.9-2); Albumin Level 4.6 gm/dl (3.4-5.0); Alkaline Phosphatase 86 U/L (34-104); Anion Gap 6 (3-11); Aspartate Aminotransferase 22 U/L (13-39); BUN Creatinine Ratio 16.8 (10-20); Bilirubin,Total 0.5 mg/dl (0.2-1.0); Blood Urea Nitrogen 18 mg/dl (6-23); Calcium 10.1 mg/dl (8.6-10.3); Carbon Dioxide 31 mmol/L (21-32); Chloride 104 mmol/L (98-107); Creatinine Clr Calc Pharmacy 39.4 ml/min; Globulin 2.6 gm/dl (2.5-4.0); Glucose 125 mg/dl (70-99(Fasting)); Magnesium 2.2 mg/dl (1.7-2.4); Potassium 4.2 mmol/L (3.5-5.1); Sodium 141 mmol/L (136-145); Total Protein 7.2 gm/dl (6.0-8.3)
[2025-02-02 16:18] LABS: Troponin I High Sensitivity < 2.3 pg/ml (0-14)
[2025-02-02 16:28] LABS: Thyroid Stimulating Hormone 1.138 uIu/ml (0.300-4.500)
[2025-02-02 16:29] LABS: INR 0.9 (0.9-1.1); Partial Thromboplastin Ratio 0.9; Partial Thromboplastin Time 24 Seconds (21-31); Prothrombin Time 10.3 Seconds (9.0-12.0)
[2025-02-02] MEDS: OPTIRAY 320 100ml IV ONE (17:57)
--- NOTE | 2025-02-02 18:07 | Emergency Department Note ---
Impression & Plan Gait instability, Dysmetria ED Provider Note NAME: GUANACO PETERSON AGE: 84 SEX: F : 1940 ARRIVES VIA: Walk-In INFORMANT: Patient, ED PROVIDER(S): Poonam August MD CHIEF COMPLAINT: Off-balance, vertigo HPI: This is a 84-year-old female presenting for feeling off balance. Patient states that for the past 2 weeks she has had symptoms of feeling off balance. She notes that she does not feel stable on her feet. She notes similar feeling vertiginous. She reports no fevers or chills. No nausea, vomiting. This never happened before. She symptoms does get better but does not. She contacted her PCP today who advised to come to the ER. She reports almost falling but not actually falling today. ROS: See above HPI for pertinent positives & negatives. A total of 10 systems reviewed and were otherwise negative. PAST MEDICAL HISTORY: See Below PAST SURGICAL HISTORY: See Below FAMILY HISTORY: See Below SOCIAL HISTORY: See Below HOME MEDICATIONS: See Below ALLERGIES: See Below VITALS: See Below PHYSICAL EXAMINATION: General: resting comfortably in no acute distress Head: Normocephalic and atraumatic Eyes: Normal inspection, extraocular muscles intact Ear, nose, throat: Normal external exam Neck: Normal range of motion Respiratory: lungs clear to auscultation bilaterally Cardiovascular: Regular rate/rhythm, no murmur GI: soft, nontender, no guarding or rebound Extremities: nontender, moves all extremities Neuro: The patient awake and alert, appropriately conversive, no focal deficits, symmetric faces, short shuffling gait, left upper extremity dysmetria Skin: Warm, dry, and intact MEDICAL DECISION MAKING: This is an 84-year-old female presenting for off-balance sensation. 2+ week history. Consider BPPV, central process such as stroke, dehydration -Bloodwork is reviewed showing no significant leukocytosis, anemia, electrolyte or creatinine abnormality -UA currently negative -Patient CT imaging of the head, CTA head and neck are currently negative for pathology -With this patient's left upper extremity dysmetria as well as short shuffling gait, will admit for further stroke rule out. -Care discussed with admitting hospitalist team under Dr. Raya Differential diagnosis: Vertigo, BPPV, stroke, dehydration, UTI Independent History obtained from: Diagnostics interpreted by me: ECG: ECG independently interpreted by me with normal sinus rhythm, rate of 71, normal axis, normal VA, normal QRS, normal QTc, no ST segment elevations consistent with STEMI criteria Cardiac Monitoring: An order was placed for continuous cardiac monitoring. The monitor shows a rate of 72 with sinus rhythm. Past Med/Surg History Problem List (Updated 09/06/24 @ 00:07 by Alvaro Chavarria) Dysmetria (Acute) Gait instability (Acute) Chronic prescription benzodiazepine use Weakness of both lower extremities Ambulatory dysfunction Acute left lumbar radiculopathy (Acute) Acute left flank pain (Acute) Rib pain on right side Excessive cerumen in both ear canals Valvular heart disease ALDANA (dyspnea on exertion) Palpitations Vaginal dryness, menopausal Non-healing skin lesion Cough with fever Routine health maintenance Closed fracture of tuft of distal phalanx of finger Crushing injury of finger of left hand Nailbed laceration, finger History of colonoscopy Lower GI bleed Abnormal CT scan, colon Thank you for allowing us to participate in the care of this patient. If you should have further questions or concerns, do not hesitate to contact us at [email or web address] [phone] or [phone]. DVT prophylaxis Melena Colonic mass Hypothyroidism Colon cancer Encounter for pre-operative examination Lower back pain Stage III carcinoma of colon Substernal chest pain SOB (shortness of breath) Fever History of colon cancer Encounter for pre-operative examination History of colon cancer Arthritis of knee, left Trochanteric bursitis of left hip History of removal of Port-a-Cath (10/24/20) Hearing deficit B/L TRIVEDI Osteoarthritis Hypertension Anxiety History of hemorrhoidectomy Medical History History of colon cancer Cardiac murmur Bulging discs GERD (gastroesophageal reflux disease) Hypothyroid Surgical History History of cataract surgery Nausea and vomiting after administration of anesthetic agent History of tonsillectomy History of colonoscopy History of cardiac cath History of bowel resection History of esophagogastroduodenoscopy (EGD) History of appendectomy History of cholecystectomy Family History Brother Aneurysm Sister Family history of diabetes mellitus Cerebral aneurysm Cancer Grandmother No problems noted. Father Coronary heart disease, Onset Age: 65 Mother Venous thromboembolism Sister Cirrhosis Daughter Family hx colonic polyps Grandmother (Maternal) Family history of diabetes mellitus Other No family history of adverse response to anesthesia Social History Smoking Status: Never smoker Cigarettes Per Day: just as a teenager; Second Hand Exposure: No; Do You Dip or Chew Tobacco: No; Hx Alcohol Use: No Hx Substance Use: No Preferred Language: Portuguese Communication Ability: Effective Visual Impairment: No Limitations Hearing Ability: Use of Hearing Aid Size Cutter Required: No Beliefs That Will Affect Care: None marital status: Current Living Situation: Spouse 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 How many Children do You have: 2 Feels Safe at Home: Yes Safety Concerns: Feels Safe At This Time Childhood Exposure to Second-Hand Smoke: No Diet: regular caffeine: Yes during the past year weight has: remained stable Dental Care, Regularly: Yes Physical Activity Frequency: Daily Seatbelt Use: always Sunscreen Use: No Assistive Devices: Hearing Aid - Bilateral Allergies Allergies Allergy/AdvReac Type Severity Reaction Status Date / Time No Known Allergies Allergy Verified 02/02/25 18:38 Home Meds Home Medications Medication Instructions Recorded Confirmed polyethylene glycol 3350 17 17 g PO QAM 04/10/19 02/02/25 gram/dose oral powder [id number] 1 cap PO QAM 04/13/19 02/02/25 375 mg-100 mg-36 mg-54 mg capsule (Glucosamine Chondroitin PLUS) cholecalciferol (vitamin D3) 25 25 mcg PO DAILY 07/29/23 02/02/25 mcg (1,000 unit) capsule Previous Rx's Medication Instructions Recorded amlodipine 5 mg tablet 5 mg PO DAILY #90 tabs 01/29/24 alprazolam 0.5 mg tablet 1 mg (2 x 0.5 mg) PO HS PRN Sleep 01/07/25 #180 tabs citalopram 10 mg tablet 10 mg PO DAILY #90 tabs 01/12/25 lisinopril 40 mg tablet 40 mg PO DAILY #90 tabs 01/12/25 levothyroxine 75 mcg tablet 75 mcg PO QAM #90 tabs 02/02/25 Results & Data (ED) Vital Signs Vital Signs - 24 hr 02/02/25 15:21 02/02/25 17:23 02/02/25 17:23 Temperature 36.6 C Temperature Source Temporal Artery Scan Pulse Rate 78 63 Pulse Rate [Finger] 63 Pulse Rhythm [Finger] Pulse Strength [Finger] Normal Respiratory Rate 16 17 17 Respiratory Effort / Characteristics Non-Labored Spontaneous Non-Labored Spontaneous Respiratory Depth Normal Normal Respiratory Pattern Regular Regular Blood Pressure 128/68 Blood Pressure [Right Arm] 165/84 H Blood Pressure Mean 88 Blood Pressure Mean [Right Arm] 111 Blood Pressure Position [Right Arm] Lying Pulse Oximetry 96 96 96 Oxygen Delivery Method Room Air Room Air Room Air Sepsis Recent Fever Within 48 Hours No Sepsis New/Unexplained Change in Mental Status N/A Sepsis Action Taken by Nursing No Action Required 02/02/25 17:25 02/02/25 18:14 02/02/25 19:15 Temperature Temperature Source Pulse Rate 61 Pulse Rate [Finger] 61 Pulse Rhythm [Finger] Regular Pulse Strength [Finger] Normal Respiratory Rate 17 Respiratory Effort / Characteristics Non-Labored Spontaneous Respiratory Depth Normal Respiratory Pattern Regular Blood Pressure Blood Pressure [Right Arm] 146/76 H Blood Pressure Mean Blood Pressure Mean [Right Arm] 99 Blood Pressure Position [Right Arm] Lying Pulse Oximetry 96 93 Oxygen Delivery Method Room Air Room Air Sepsis Recent Fever Within 48 Hours Sepsis New/Unexplained Change in Mental Status Sepsis Action Taken by Nursing Laboratory Data 02/02/25 15:40 02/02/25 15:40 Lab Results 02/02/25 Range/Units 15:40 WBC 6.58 (4.8-10.8) K/ul RBC 4.41 (4.20-5.40) M/uL Hgb 13.5 (12.0-16.0) g/dl Hct 40.5 (37.0-47.0) % MCV 91.8 (80.0-100.0) fL MCH 30.6 (25.0-34.0) pg MCHC 33.3 (32.0-36.0) g/dL RDW Std Deviation 41.4 (36.4-46.3) fL RDW Coeff of [place]ador 12.3 (11.5-14.5) % Plt Count 220 (130-400) K/uL MPV 10.2 (9.4-12.4) fL Immature Gran % (Auto) 0.2 % Neut % (Auto) 66.8 % Lymph % (Auto) 25.1 % [place] % (Auto) 5.2 % Eos % (Auto) 2.1 % Baso % (Auto) 0.6 % Neut # (Auto) 4.40 (1.40-6.50) K/uL Lymph # (Auto) 1.65 (1.20-3.40) K/uL [place] # (Auto) 0.34 (0.11-0.59) K/uL Eos # (Auto) 0.14 (0.00-0.50) K/uL Baso # (Auto) 0.04 (0.00-0.20) K/uL Immature Gran # (Auto) 0.01 (0.01-0.20) K/uL PT 10.3 (9.0-12.0) Seconds INR 0.9 (0.9-1.1) APTT 24 (21-31) Seconds PTT Ratio 0.9 Sodium 141 (136-145) mmol/L Potassium 4.2 (3.5-5.1) mmol/L Chloride 104 (98-107) mmol/L Carbon Dioxide 31 (21-32) mmol/L Anion Gap 6 (3-11) BUN 18 (6-23) mg/dl Creatinine 1.07 (0.6-1.2) mg/dl Est Cr Clr Drug Dosing 39.4 ml/min eGFR 51.86 BUN/Creatinine Ratio 16.8 (10-20) Glucose 125 H (70-99(Fasting)) mg/dl Calcium 10.1 (8.6-10.3) mg/dl Magnesium 2.2 (1.7-2.4) mg/dl Total Bilirubin 0.5 (0.2-1.0) mg/dl AST 22 (13-39) U/L ALT 13 (7-52) U/L Alkaline Phosphatase 86 (34-104) U/L Troponin I High Sens < 2.3 (0-14) pg/ml Total Protein 7.2 (6.0-8.3) gm/dl Albumin 4.6 (3.4-5.0) gm/dl Globulin 2.6 (2.5-4.0) gm/dl Albumin/Globulin Ratio 1.8 (0.9-2) TSH 1.138 (0.300-4.500) uIu/ml Urine Color Yellow Urine Appearance Clear (Clear) Urine pH 5.5 (4.5-7.5) Ur Specific [place] 1.007 (1.000-1.030) Urine Protein Negative (Negative) Urine Glucose (UA) Negative (Negative) Urine Ketones Negative (Negative) Urine Blood Trace H (Negative) Urine Nitrite Negative (Negative) Urine Bilirubin Negative (Negative) Urine Urobilinogen Negative (Negative) Ur Leukocyte Esterase Negative (Negative) Urine WBC (Auto) 0-5 (0-5) /hpf Urine RBC (Auto) 0-2 (0-2) /hpf U Hyaline Cast (Auto) 0-2 (0-2) /lpf U Epithel Cells (Auto) 0-2 (0-2) /hpf Urine Bacteria (Auto) None Seen (None Seen) Administered Medications Alprazolam (Alprazolam 0.5 Mg Tablet) 1 mg PO HS PRN PRN Reason: Sleep Stop: 03/04/25 21:02 Last Admin: 02/02/25 22:52 Dose: 1 mg Documented By: RAMY Enoxaparin Sodium (Enoxaparin Inj 40 Mg/0.4 Ml Syr) 40 mg SQ PM GISSELL Stop: 03/04/25 21:02 Last Admin: 02/02/25 23:47 Dose: 40 mg Documented By: MARCELLE Discontinued Medications Ioversol (Optiray 320 100ml) 115 ml IV ONCE ONE Stop: 02/02/25 17:58 Last Admin: 02/02/25 17:57 Dose: 115 ml Documented By: MARCY Imaging Data Radiologist's Impression: Chest X-Ray 02/02/25 15:25 XR chest 1V not portable CLINICAL HISTORY: Weakness COMPARISON STUDY: 08/20/2024 FINDINGS: Heart size and pulmonary vasculature are normal. No effusion, consolidation, or pneumothorax. IMPRESSION: No acute findings. ACT 112: Negative or not required by law. Electronically signed by: Garcia Chacon M.D. 02/02/2025 3:[address] 02/02/25 17:41 Clinical History: Possible stroke Technique: Axial computed tomography images were obtained of the brain from the vertex to the skull base without intravenous contrast. Findings: There is no sign of intracranial hemorrhage. There is normal villarreal-white matter differentiation with no sign of acute or old infarction. No midline shift or other form of herniation is identified. There is no hydrocephalus. No obvious mass lesion is seen on this noncontrast examination. The visualized portions of the orbits and paranasal sinuses appear unremarkable. The mastoid air cells appear clear Impression: Unremarkable noncontrast CT of the brain Electronically signed by Vinicius Guo 02-02-2025 6:23 PM Head CTA 02/02/25 17:41 Clinical History: Off-balance Technique: Axial computed tomography images were obtained of the brain after the administration of intravenous contrast according to the CT angiogram protocol Findings: There is calcified plaque within the cavernous and supraclinoid segments of the internal carotid arteries bilaterally without stenosis No definite stenosis or aneurysm is seen of the anterior, middle, or posterior cerebral artery circulations. The visualized vertebral arteries and the basilar artery appear unremarkable Impression: Unremarkable CTA of the brain Electronically signed by Vinicius Guo 02-02-2025 6:25 PM Neck CTA 02/02/25 17:41 Clinical History: Off-balance Technique: Axial computed tomography images were obtained of the neck after the administration of intravenous contrast according to the CT angiogram protocol Findings: No stenosis is seen of the common carotid arteries bilaterally. There is plaque within the carotid bulbs bilaterally, without significant stenosis. The remainder of the internal carotid arteries appear patent bilaterally. There is mild plaque in the proximal external carotid arteries bilaterally, without significant stenosis The vertebral arteries are patent bilaterally with no significant stenosis seen. The visualized thoracic aorta appears unremarkable There is multilevel degenerative disc disease and osteoarthritis of the cervical spine. Impression: No definite stenosis of the neck arteries Electronically signed by Vinicius Guo 02-02-2025 6:27 PM Discharge Plan Visit Data Chief Complaint: Vertigo Stated Complaint: UNSTEADY ON FEET, WOBBLY ED Provider: Poonam August Discharge Problem: Gait instability, Dysmetria Patient Disposition: Admitted As Inpatient Discharge Instructions Interventions: ED Discharge Assessment Last Done: 02/02/25 21:02
--- NOTE | 2025-02-02 18:24 | CT Scan Report ---
Clinical History: Possible stroke Technique: Axial computed tomography images were obtained of the brain from the vertex to the skull base without intravenous contrast. Findings: There is no sign of intracranial hemorrhage. There is normal villarreal-white matter differentiation with no sign of acute or old infarction. No midline shift or other form of herniation is identified. There is no hydrocephalus. No obvious mass lesion is seen on this noncontrast examination. The visualized portions of the orbits and paranasal sinuses appear unremarkable. The mastoid air cells appear clear Impression: Unremarkable noncontrast CT of the brain Electronically signed by Vinicius Guo 02-02-2025 6:23 PM
--- NOTE | 2025-02-02 18:26 | CT Scan Report ---
Clinical History: Off-balance Technique: Axial computed tomography images were obtained of the brain after the administration of intravenous contrast according to the CT angiogram protocol Findings: There is calcified plaque within the cavernous and supraclinoid segments of the internal carotid arteries bilaterally without stenosis No definite stenosis or aneurysm is seen of the anterior, middle, or posterior cerebral artery circulations. The visualized vertebral arteries and the basilar artery appear unremarkable Impression: Unremarkable CTA of the brain Electronically signed by Vinicius Guo 02-02-2025 6:25 PM
--- NOTE | 2025-02-02 18:27 | CT Scan Report ---
Clinical History: Off-balance Technique: Axial computed tomography images were obtained of the neck after the administration of intravenous contrast according to the CT angiogram protocol Findings: No stenosis is seen of the common carotid arteries bilaterally. There is plaque within the carotid bulbs bilaterally, without significant stenosis. The remainder of the internal carotid arteries appear patent bilaterally. There is mild plaque in the proximal external carotid arteries bilaterally, without significant stenosis The vertebral arteries are patent bilaterally with no significant stenosis seen. The visualized thoracic aorta appears unremarkable There is multilevel degenerative disc disease and osteoarthritis of the cervical spine. Impression: No definite stenosis of the neck arteries Electronically signed by Vinicius Guo 02-02-2025 6:27 PM
--- NOTE | 2025-02-02 20:37 | History & Physical Report ---
Date of Service February 02, 2025 Assessment & Plan (1) Ambulatory dysfunction: (2) Weakness of both lower extremities: (3) Hypertension: (4) Hypothyroid: (5) Chronic prescription benzodiazepine use: Plan Pt is an 84 yo female coming from home with a past med hx of lumbar radiculo blatazar, hx colon cancer treated years ago with chemo, hypothyroidism, and HTN who presents to the hospital on 02/02 for weakness. #Lower extremity weakness #Ambulatory dysfunction - With hx of lumbar radiculopathy with acute flare up late 2023 with steroid use - on admission head/neck CT/CTA wnl - denies vertigo symptoms on admission, only lower extremity difficulty walking with concerns for falls with ambulation - will do MRI lumbar spine - defer steroids for now - PT/OT evals #HTN - continue home amlodipine - continue home lisinopril #Hypothyroidism - TSH on admission wnl - continue home levothyroxine #Chronic benzodiazepine use - continue home alprazolam 1 mg HS prn for sleep VTE prophylaxis: lovenox Diet: regular History of Present Illness Chief Complaint: Weakness Primary Care Provider: Chen Mayes MD Pt is an 84 yo female coming from home with a past med hx of lumbar radiculopathy, hx colon cancer treated years ago with chemo, hypothyroidism, and HTN who presents to the hospital on 02/02 for weakness. Pt states symptoms started rather abruptly about 2 weeks ago with feeling her gait was unstable. She states she felt like she could fall but thankfully did not experience any falls. She denies vertigo, no blurry or double vision, no visual changes, no bowel or bladder incontinence, no nausea or vomiting, no chest pain or SOB, no syncope or presyncopal symptoms. She states she just feels her legs are weak and do not move as she wants them to when walking. She states that she did have an episode of an acute flare up of lumbar back pain with radiculopathy months ago and was given steroids at that time and symptoms improved but then it was more pain. She still has burning sensation from her toes to her knee on the L side but hard to tell if this is worse. No back pain today. She states her weakness seems only in her legs, no issues with her upper extremities. She states she use to get back injections for her back pain but has not had one in 5 years or more. No recent illnesses. Typically completes all her ADLs herself without issue. Does not use a walker or cane at baseline but did need to use cane with acute flare up months ago. Allergies Allergy/AdvReac Type Severity Reaction Status Date / Time No Known Allergies Allergy Verified 02/02/25 18:38 Home Medications Medication Instructions Recorded Confirmed Type polyethylene glycol 3350 17 17 g PO QAM 04/10/19 02/02/25 History gram/dose oral powder [id number]-[id number]-vxkk-sterols 1 cap PO QAM 04/13/19 02/02/25 History 375 mg-100 mg-36 mg-54 mg capsule (Glucosamine Chondroitin PLUS) cholecalciferol (vitamin D3) 25 25 mcg PO DAILY 07/29/23 02/02/25 History mcg (1,000 unit) capsule amlodipine 5 mg tablet 5 mg PO DAILY #90 tabs 01/29/24 02/02/25 Rx alprazolam 0.5 mg tablet 1 mg (2 x 0.5 mg) PO HS PRN Sleep 01/07/25 02/02/25 Rx #180 tabs citalopram 10 mg tablet 10 mg PO DAILY #90 tabs 01/12/25 02/02/25 Rx lisinopril 40 mg tablet 40 mg PO DAILY #90 tabs 01/12/25 02/02/25 Rx levothyroxine 75 mcg tablet 75 mcg PO QAM #90 tabs 02/02/25 02/02/25 Rx Past Med/Surg History Problem List (Updated 09/06/24 @ 00:07 by Background Aura) Dysmetria (Acute) Gait instability (Acute) Chronic prescription benzodiazepine use Weakness of both lower extremities Ambulatory dysfunction Acute left lumbar radiculopathy (Acute) Acute left flank pain (Acute) Rib pain on right side Excessive cerumen in both ear canals Valvular heart disease ALDANA (dyspnea on exertion) Palpitations Vaginal dryness, menopausal Non-healing skin lesion Cough with fever Routine health maintenance Closed fracture of tuft of distal phalanx of finger Crushing injury of finger of left hand Nailbed laceration, finger History of colonoscopy Lower GI bleed Abnormal CT scan, colon Thank you for allowing us to participate in the care of this patient. If you should have further questions or concerns, do not hesitate to contact us at [phone] or [phone]. DVT prophylaxis Melena Colonic mass Hypothyroidism Colon cancer Encounter for pre-operative examination Lower back pain Stage III carcinoma of colon Substernal chest pain SOB (shortness of breath) Fever History of colon cancer Encounter for pre-operative examination History of colon cancer Arthritis of knee, left Trochanteric bursitis of left hip History of removal of Port-a-Cath (10/24/20) Hearing deficit B/L TRIVEDI Osteoarthritis Hypertension Anxiety History of hemorrhoidectomy Medical History History of colon cancer Cardiac murmur Bulging discs GERD (gastroesophageal reflux disease) Hypothyroid Surgical History History of cataract surgery Nausea and vomiting after administration of anesthetic agent History of tonsillectomy History of colonoscopy History of cardiac cath History of bowel resection History of esophagogastroduodenoscopy (EGD) History of appendectomy History of cholecystectomy Family History Brother Aneurysm Sister Family history of diabetes mellitus Cerebral aneurysm Cancer Grandmother No problems noted. Father Coronary heart disease, Onset Age: 65 Mother Venous thromboembolism Sister Cirrhosis Daughter Family hx colonic polyps Grandmother (Maternal) Family history of diabetes mellitus Other No family history of adverse response to anesthesia Social History Smoking Status: Never smoker Cigarettes Per Day: just as a teenager; Second Hand Exposure: No; Do You Dip or Chew Tobacco: No; Hx Alcohol Use: No Hx Substance Use: No Preferred Language: [place] Communication Ability: Effective Visual Impairment: No Limitations Hearing Ability: Use of Hearing Aid Lip Reading Teacher Required: No Beliefs That Will Affect Care: None marital status: Current Living Situation: Spouse current occupational status: retired current occupation: [employer] How many Children do You have: 2 Feels Safe at Home: Yes Safety Concerns: Feels Safe At This Time Childhood Exposure to Second-Hand Smoke: No Diet: regular caffeine: Yes during the past year weight has: remained stable Dental Care, Regularly: Yes Physical Activity Frequency: Daily Seatbelt Use: always Sunscreen Use: No Assistive Devices: Hearing Aid - Bilateral Review of Systems Review of Systems: Per HPI. 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, 5/5 strength in flex/ext of upper and lower extremities bilaterally, finger-nose testing wnl, normal sensory b/l, no edema, Results & Data Results & Data Vital Signs (Past 12 Hours) Vital Signs Temp Pulse Pulse Resp BP BP Pulse Ox 02/02/25 19:15 61 17 146/76 H 93 02/02/25 18:14 61 02/02/25 17:25 96 02/02/25 17:23 63 17 96 02/02/25 17:23 63 17 165/84 H 96 02/02/25 15:21 36.6 C 78 16 128/68 96 O2 Del Method 02/02/25 19:15 Room Air 02/02/25 18:14 02/02/25 17:25 Room Air 02/02/25 17:23 Room Air 02/02/25 17:23 Room Air 02/02/25 15:21 Room Air Supervising Physician Co-Signing Physician Notes I personally saw and examined the patient. I independently reviewed the labs, EKG, imaging, problem list, medication list, past medical history and family history. I verified all kevin points and agree with Dr. Opal England DO with the following exceptions and/or additions: 84-year-old female presents to the ER with unbalanced gait. Started suddenly 2.5 weeks ago, mildly improving but she is going away and advised by PCP to be assessed for CVA. O/E HS RRR, no murmurs, Chest CTAB, Abdo SNT, b/l LE 5/5 power no numbness, No UE dysdiadochokinesia, Wide based gait. A/P Difficulty balancing - no vertigo or lightheadedness, MRI spine awaiting official read but appears to have significant stenosis. Will get Brain MRI to rule out CVA given sudden acute nature as alternative cause but if negative Resident Activity Tracking Resident Involvement: Resident Care Provided Care Provided: Adult Hospital Medicine (3) Hypertension Hypertension type: primary hypertension Qualified Code(s): I10 - Essential (primary) hypertension
[2025-02-02] MEDS ORDERED: ACETAMINOPHEN 325 MG TAB PO PRN (21:03)
[2025-02-02] MEDS ORDERED: POLYETHYLENE (MIRALAX) 17 GM PACK PO PRN (21:03)
[2025-02-02] MEDS ORDERED: ONDANSETRON INJ 2 MG/ML 2 ML VIAL IV PRN (21:03)
[2025-02-02] MEDS: ALPRAZolam 0.5 MG TABLET PO PRN (22:52)
[2025-02-02] MEDS: ENOXAPARIN INJ 40 MG/0.4 ML SYR SQ SCH (23:47)
--- NOTE | 2025-02-03 01:47 | Magnetic Resonance Report ---
Exam(s): MRI L SPINE Without Contrast EXAM: MR Lumbar Spine Without Intravenous Contrast CLINICAL HISTORY: Reason for exam: Lower extremity weakness. TECHNIQUE: Magnetic resonance images of the lumbar spine without intravenous contrast in multiple planes. COMPARISON: Prior CT scan of the abdomen and pelvis from August 20, 2024. FINDINGS: This study is limited secondary to motion artifact. Vertebrae: There are 5 lumbar type vertebral bodies with a mild generalized curved to the left and normal lumbar lordosis. There is normal vertebral body height and alignment. The bone marrow signal is normal. There is narrowing of the distal lumbar spinal canal secondary to congenitally short pedicles. No acute fracture. Spinal cord: The conus is normal size, shape and signal characteristics, terminating at T12-L1. Soft tissues: Advanced atrophy of the iliopsoas, paraspinous intraspinous musculature. The aorta and IVC flow voids are intact. The visualized kidneys are unremarkable. DISCS/SPINAL CANAL/NEURAL FORAMINA: L1-L2: There is mild disc degeneration with annular disc bulge asymmetric to the left flattening the ventral thecal sac with disc extending into the neural foramina without impingement or significant stenosis. L2-L3: Moderate disc degeneration with annular disc bulge causing a mild subarticular recess stenosis with superimposed congenitally short pedicles causing a moderately severe spinal canal stenosis with thecal sac area measuring 0.52 cm². There is disc extending to the neural foramina causing a mild right stenosis without evidence of neural impingement. L3-L4: There is mild disc degeneration with annular disc bulge causing a severe subarticular recess stenosis with impingement of the transiting L4 nerve roots with superimposed congenitally short pedicles and ligamentum flavum laxity causing a severe spinal canal stenosis with thecal sac area measuring 0.31 cm². There is disc extending to the neural foramina without evidence of impingement or significant stenosis. L4-L5: Moderate disc degeneration with annular disc bulge asymmetric to the left causing a moderate right and severe left subarticular recess stenosis with impingement of the transiting L5 nerve roots with superimposed congenitally short pedicle and ligamentum flavum laxity causing a critical spinal canal stenosis with thecal sac area measuring 0. 18 cm². There is disc and osteophyte extending to the neural foramina causing mild bilateral stenosis without evidence of neural impingement. L5-S1: There is mild disc degeneration with annular disc bulge causing a mild subarticular recess stenosis with disc and osteophyte extending to the neural foramina causing a mild right stenosis without evidence of neural impingement. IMPRESSION: 1. Moderate disc degeneration at L2-3, L4-5, mild disc degeneration at L1-L2, L3-4 and L5-S1 with annular disc bulging flattening the ventral thecal sac and causing a mild subarticular recess stenosis at L2-3, L5-S1, and moderately severe right and severe left subarticular recess stenosis at L4-5 and severe bilateral subarticular recess stenosis at L3-4 with impingement of the bilateral L5 and L4 nerve roots respectively. 2. There is a critical spinal canal stenosis at L4-5, severe stenosis at L3-4 and moderately severe stenosis at L2-3. 3. There is a mild right L2-3, mild bilateral L4-5 and mild right L5-S1 neural foraminal stenosis without evidence of neural impingement. 4. No evidence of fracture, infection, tumor or arachnoiditis. Electronically signed by: Joyce Bass MD 02/03/25 01:46 AM
[2025-02-03 05:06] LABS: Albumin Level 4.1 gm/dl (3.4-5.0); BUN Creatinine Ratio 17.5 (10-20); Bilirubin,Total 0.5 mg/dl (0.2-1.0); Calcium 8.9 mg/dl (8.6-10.3); Creatinine Clr Calc Pharmacy 43.4 ml/min; Potassium 3.9 mmol/L (3.5-5.1); Total Protein 6.1 gm/dl (6.0-8.3)
--- NOTE | 2025-02-03 05:38 | Electrocardiogram Report ---
Test Reason : Blood Pressure : */* mmHG Vent. Rate : 71 BPM Atrial Rate : 71 BPM P-R Int : 156 ms QRS Dur : 80 ms QT Int : 388 ms P-R-T Axes : 44 14 52 degrees QTcB Int : 421 ms Normal sinus rhythm Nonspecific ST and T wave abnormality Abnormal ECG When compared with ECG of 20-Aug-2024 20:13, No significant change was found Confirmed by Kirill Bautista ([id number]) on 02/03/2025 5:38:17 AM Referred By: Confirmed By: Kirill Bautista
--- NOTE | 2025-02-03 06:35 | Billing Data ---
Date of Service February 02, 2025 Coding Level of Care Code 17145 INT INP/OBS CARE
[2025-02-03] MEDS: LEVOTHYROXINE SODIUM 75 MCG TABLET PO SCH (08:34)
[2025-02-03] MEDS: CITALOPRAM 20 MG TAB PO SCH (08:35)
[2025-02-03] MEDS: lisinopril 40 MG TAB PO SCH (08:35)
[2025-02-03] MEDS: amLODIPine BESYLATE 5 MG TAB PO SCH (08:36)
--- NOTE | 2025-02-03 08:51 | Orthopedic Consultation ---
Date of Consultation February 03, 2025 Assessment & Plan (1) Spinal stenosis, lumbar region with neurogenic claudication: Assessment multilevel lumbar spinal stenosis most severe at L4-L5. Plan at this time despite the impressive findings on MRIs she seems to be highly functional. She would like to continue with observation only. She has been following with . History of Present Illness Reason for Consultation: Patient is currently noting some weakness with prolonged walking Attending Physician: Victor M Carrion DO History of Present Illness Very pleasant 10-year-old female who presents with concerns of leg weakness and stooping. This morning she states she is much better she denies any numbness tingling into the lower extremities. Denies any leg pain. She notes issues with walking often using her for additional stability. She denies any pain awaken her from sleep. Allergies Allergy/AdvReac Type Severity Reaction Status Date / Time No Known Allergies Allergy Verified 02/02/25 18:38 Home Medications Medication Instructions Recorded Confirmed Type polyethylene glycol 3350 17 17 g PO QAM 04/10/19 02/02/25 History gram/dose oral powder [id number]-[id number]-snb-[id number]-sterols 1 cap PO QAM 04/13/19 02/02/25 History 375 mg-100 mg-36 mg-54 mg capsule (Glucosamine Chondroitin PLUS) cholecalciferol (vitamin D3) 25 25 mcg PO DAILY 07/29/23 02/02/25 History mcg (1,000 unit) capsule amlodipine 5 mg tablet 5 mg PO DAILY #90 tabs 01/29/24 02/02/25 Rx alprazolam 0.5 mg tablet 1 mg (2 x 0.5 mg) PO HS PRN Sleep 01/07/25 02/02/25 Rx #180 tabs citalopram 10 mg tablet 10 mg PO DAILY #90 tabs 01/12/25 02/02/25 Rx lisinopril 40 mg tablet 40 mg PO DAILY #90 tabs 01/12/25 02/02/25 Rx levothyroxine 75 mcg tablet 75 mcg PO QAM #90 tabs 02/02/25 02/02/25 Rx Patient History Medical History History of colon cancer Cardiac murmur Bulging discs GERD (gastroesophageal reflux disease) Hypothyroid Surgical History History of cataract surgery Nausea and vomiting after administration of anesthetic agent History of tonsillectomy History of colonoscopy History of cardiac cath History of bowel resection History of esophagogastroduodenoscopy (EGD) History of appendectomy History of cholecystectomy Family History Brother Aneurysm Sister Family history of diabetes mellitus Cerebral aneurysm Cancer Grandmother No problems noted. Father Coronary heart disease, Onset Age: 65 Mother Venous thromboembolism Sister Cirrhosis Daughter Family hx colonic polyps Grandmother (Maternal) Family history of diabetes mellitus Other No family history of adverse response to anesthesia Social History Smoking Status: Never smoker Cigarettes Per Day: just as a teenager; Second Hand Exposure: No; Do You Dip or Chew Tobacco: No; Hx Alcohol Use: No Hx Substance Use: No Preferred Language: Bulgarian Communication Ability: Effective Visual Impairment: No Limitations Hearing Ability: Use of Hearing Aid Child Nutrition Director Required: No Beliefs That Will Affect Care: None marital status: Current Living Situation: Spouse current occupational status: retired current occupation: [employer] How many Children do You have: 2 Feels Safe at Home: Yes Safety Concerns: Feels Safe At This Time Childhood Exposure to Second-Hand Smoke: No Diet: regular caffeine: Yes during the past year weight has: remained stable Dental Care, Regularly: Yes Physical Activity Frequency: Daily Seatbelt Use: always Sunscreen Use: No Assistive Devices: Hearing Aid - Bilateral Physical Exam Physical Exam: On exam I had her get up out of bed. She is able to do so without assistance. She can ambulate about the room with a steady gait somewhat widened. She is able to stand on her toes and heels. Is sensory is intact. Results & Data Vital Signs (Past 12 Hours) Vital Signs Pulse Pulse Resp BP Pulse Ox O2 Del Method 02/03/25 08:33 75 16 131/63 94 Room Air 02/03/25 07:03 57 L 02/03/25 06:00 56 L 20 115/61 95 Room Air 02/03/25 02:00 54 L 20 114/61 96 Room Air 02/02/25 23:47 72 20 146/77 H 95 Room Air 02/02/25 23:10 55 L 02/02/25 21:23 60 16 134/80 98 Room Air
--- NOTE | 2025-02-03 10:17 | Magnetic Resonance Report ---
MRI OF THE BRAIN WITHOUT IV CONTRAST CLINICAL HISTORY: Bilateral lower extremity weakness. COMPARISON STUDY: Head CT and CTA of the head February 02, 2025. TECHNIQUE: MRI of the brain was performed utilizing various T1 and T2-weighted sequences in the axial , sagittal, and coronal planes. IV contrast was not administered for this examination. FINDINGS: Brain parenchyma: There are no foci of restricted diffusion to suggest acute infarct. No acute intrac ranial hemorrhage, midline shift or mass effect is present. No intracranial masses are identified on unenhanced exam. There is no significant parenchymal signal abnormality. Ventricles, sulci, and cisterns: Mild ventricular dilatation is due to atrophy. The basal cisterns ar e patent. There are no extra-axial collections. Pituitary and sella: Unremarkable. Intracranial vasculature: Flow-voids for the major intracranial vessels are present. Orbits: Orbital contents are unremarkable. Sinuses and mastoids: Small mucous retention cyst within the right maxillary sinus is incidentally no juliano. There is mild ethmoid sinus mucosal thickening. Calvarium: No calvarial lesions are identified. Cervical cord: Partially visualized cervical spinal cord is normal in morphology and signal intensity . IMPRESSION: No acute intracranial findings. ACT 112: Negative or not required by law. Electronically signed by: Yonatan Roy M.D. 02/03/2025 10:16 AM
[2025-02-03 13:30] VITALS: RESP 16
[2025-02-03 13:56] VITALS: BP 125/73; PULSE 63; TEMP 98.4; O2SAT 97
--- NOTE | 2025-02-03 14:52 | Hospitalist Progress Note ---
Date of Service February 03, 2025 Assessment & Plan (1) Ambulatory dysfunction: (2) Weakness of both lower extremities: (3) Hypertension: (4) Hypothyroid: (5) Chronic prescription benzodiazepine use: Plan Pt is an 84 yo female coming from home with a past med hx of lumbar radiculo baltazar, hx colon cancer treated years ago with chemo, hypothyroidism, and HTN who presents to the hospital on 02/02 for weakness. #Lower extremity weakness #Ambulatory dysfunction - With hx of lumbar radiculopathy with acute flare up late 2023 with steroid use - on admission head/neck CT/CTA wnl - denies vertigo symptoms on admission, only lower extremity difficulty walking with concerns for falls with ambulation - will do MRI lumbar spine - defer steroids for now - PT/OT evals #HTN - continue home amlodipine - continue home lisinopril #Hypothyroidism - TSH on admission wnl - continue home levothyroxine #Chronic benzodiazepine use - continue home alprazolam 1 mg HS prn for sleep VTE prophylaxis: lovenox Diet: regular Admission and Anticipated Discharge Date Admission Date: February 02, 2025 Results & Data Results & Data Vital Signs (Past 12 Hours) Vital Signs Temp Pulse Pulse Resp BP Pulse Ox O2 Del Method 02/03/25 13:55 36.9 C 63 16 125/73 97 Room Air 02/03/25 13:28 61 16 121/89 95 Room Air 02/03/25 11:18 62 20 133/69 94 Room Air 02/03/25 08:33 75 16 131/63 94 Room Air 02/03/25 07:03 57 L 02/03/25 06:00 56 L 20 115/61 95 Room Air (3) Hypertension Hypertension type: primary hypertension Qualified Code(s): I10 - Essential (primary) hypertension
--- NOTE | 2025-02-03 16:38 | Communication Note ---
Date of Service: February 03, 2025 By CMS guidelines, a determination that the admission or continued stay is not medically necessary has been made by a member of the UR committee and a physic sacha for this hospital stay, therefore a Code 44 will be completed and the Inpatient admission will be changed to outpatient.
--- NOTE | 2025-02-03 16:58 | Discharge Summary ---
Date of Service February 03, 2025 Admission HPI Per Admitting Provider Pt is an 84 yo female coming from home with a past med hx of lumbar radiculopathy, hx colon cancer treated years ago with chemo, hypothyroidism, and HTN who presents to the hospital on 02/02 for weakness. Pt states symptoms started rather abruptly about 2 weeks ago with feeling her gait was unstable. She states she felt like she could fall but thankfully did not experience any falls. She denies vertigo, no blurry or double vision, no visual changes, no bowel or bladder incontinence, no nausea or vomiting, no chest pain or SOB, no syncope or presyncopal symptoms. She states she just feels her legs are weak and do not move as she wants them to when walking. She states that she did have an episode of an acute flare up of lumbar back pain with radiculopathy months ago and was given steroids at that time and symptoms improved but then it was more pain. She still has burning sensation from her toes to her knee on the L side but hard to tell if this is worse. No back pain today. She states her weakness seems only in her legs, no issues with her upper extremities. She states she use to get back injections for her back pain but has not had one in 5 years or more. No recent illnesses. Typically completes all her ADLs herself without issue. Does not use a walker or cane at baseline but did need to use cane with acute flare up months ago. Admission Exam Per Admitting Provider General: Alert and oriented, no acute distress, HEENT: Normocephalic, moist oral mucosa, EOMI Cardio: Regular rate and rhythm, + murmur, Resp: Lungs clear to auscultation b/l, no wheezes or rhonchi, GI: Soft and nontender, nondistended, bowel sounds active Skin: Warm, pink, dry, Extremities: Normal range of motion in upper and lower extremities, good pyrotechnic mixer strength, 5/5 strength in flex/ext of upper and lower extremities bilaterally, finger-nose testing wnl, normal sensory b/l, no edema Principal Diagnosis Ambulatory dysfunction Discharge Exam General: patient resting comfortably, NAD, non-toxic in appearance, answers questions appropriately. Skin: warm, dry, intact HEENT: NC/AT, anicteric sclera, conjunctiva without injection, moist mucus membranes. Heart: +S1/S2, regular, no m/r/g Lungs: equal air entry bilaterally, no rales/rhonchi/wheezes Abd: +BS, soft, NT/ND Ext: warm, no clubbing/cyanosis or edema Neuro: nonfocal, speech intact, no facial droop, moving all extremities. Discharge Data Allergies Allergy/AdvReac Type Severity Reaction Status Date / Time No Known Allergies Allergy Verified 02/02/25 18:38 Consultations 02/03/25 00:27 ED Decision to Admit Routine 02/03/25 06:27 Consult Orthopedic Spine Surgery Routine Ordered Studies 02/02/25 17:41 CT head/brain wo con Stat CTA head w con [CT angio head w con] Stat CTA neck with con [CT angio neck with con] Stat 02/02/25 21:03 MRI Lumbar Spine [MR lumbar spine wo con] Urgent 02/03/25 06:26 MRI Brain [MR brain wo con] Routine Hospital Course (1) Ambulatory dysfunction: (2) Weakness of both lower extremities: (3) Hypertension: (4) Hypothyroid: (5) Chronic prescription benzodiazepine use: Plan Pt is an 84 yo female coming from home with a past med hx of lumbar radiculopathy, hx colon cancer treated years ago with chemo, hypothyroidism, and HTN who presents to the hospital on 02/02 for weakness. #Lower extremity weakness #Ambulatory dysfunction - With hx of lumbar radiculopathy with acute flare up late 2023 with steroid use - on admission head/neck CT/CTA wnl - MRI brain wnl no evidence of stroke/TIA - denies vertigo symptoms on admission, only lower extremity difficulty walking with concerns for falls with ambulation - MRI lumbar spine with areas of severe stenosis and worst at L4-L5, radicular symptoms and ataxia - PT/OT recommend return to home - upon d/c corticosteroid pain management, walker/cane use, and decompression with chiropractor will be useful in regaining balance and avoiding pain and falls #HTN - continue home amlodipine - continue home lisinopril #Hypothyroidism - TSH on admission wnl - continue home levothyroxine #Chronic benzodiazepine use - continue home alprazolam 1 mg HS prn for sleep VTE prophylaxis: lovenox Diet: regular Total Time Total Time Spent Total Time Spent (In Minutes): >30 Discharge Plan Discharge Items Patient Disposition: Home - Self-Care Reason For Visit: LOWER EXTREMITY WEAKNESS Discharge Diagnosis: spinal stenosis Activity: Resume your previous activity Non-emergency contact: Primary Care Provider Call non-emergency contact if: you have any medication questions and your sy mptoms worsen Follow-up/Referrals: Chen Mayes MD [Primary Care Provider] - Diet: Regular Addtl Attending Provider Instructions: spinal stenosis As we discussed, fortunately your symptoms did not appear related to a stroke (MRI brain was negative). Between your symptoms, how you walk, and the MRI of your lumbar spine, it does appear extremely consistent with spinal stenosis - given that chronic spinal stenosis will often lead to "neuropathy" (nerves not functioning right due to chronic pressure on them) and given that this kind of neuropathy frequently impairs what is called "proprioception" (the function of nerves where they tell us where our body is in space), I suspect your weak/wobbliness relates to impairment in proprioceptionthe nerves in your feet probably have a hard time telling your brain where they are in space. The "why now" as far as getting more wobbly over the last 2 weeks very well may have a lot to do with the recent blurring in your vision. Given that your eye doctor did not see anything truly "eye" related causing it, and given what time of year it Samy do wonder if we are not having blurriness from dry eyeseither from rapid changes in the weather, increase in pollen, or if you are not drinking enough, from being a bit dehydrated (all 3 are fairly common)when proprioception does not work as well as it should, we often use vision to make up for our brain knowing where when space. If vision is not working as well, then it can be really hard to know where her body isprobably why you are more wobbly. --- I would recommend trying to hydrate better (somewhere in the neighborhood of 60-80 ounces of fluid a day), and consider using single vial artificial tears eyedropsthe 2 together may help the vision be less blurry; if blurred vision plus diminished proprioception is why you have been more wobbly, that may help things improve as far as your stability --- specific to the spinal stenosis, while your feet will have a hard time telling your brain where they are in space, the nerves to your hands will work fineand therefore using something that has a contact with the ground to your hand can help your brain be aware of where your whole lower body is in space. Using either a cane or a walker can help with this proprioception. Right now being more weak/wobbly, I would definitely recommend a walkerthis not only gives you a contact between your hands in the ground, but it also provides stability and makes it far less likely that you will fall; however, if you are having a good day and are not feeling very wobbly, that is where a cane can be a bit more convenient means of knowing where your body is in space. --- Given that a fall (and worse a fall with a fracture) could be a cat astrophic setback, definitely use your walker on more wobbly days, and definitely use the stair lifts rather than walking on the steps. - As far as trying to help with the spinal stenosisas we discussed, surgery is an option, but I definitely worry about how much the surgery could "knock you down" (i.e. you would almost certainly come through the surgery well, and your spine would probably be better, but the impact on your strength/conditioning/wellbeing could essentially put you in a hole that may be difficult if not impossible to do get out of. Because of this, I would really hold off on surgery unless it seems like your strength/conditioning/wellbeing are truly declining regardless) - nonoperatively, when I used to be in the office, I found that a combination of pain management for steroid injections, and chiropractic for decompression (specific traction) would often be quite beneficial. --> We have set a referral in motion to get you in with pain management to evaluate for any areas they feel they may benefit from nerve root injectionsif this is beneficial, it will be something that you will probably want to schedule on a "recurring theme" given that the arthritis causing nerve compression will not get better, but if the injections help alleviate symptoms for a while, it will be worth repeating --> as far as decompression therapy, I do not know of any chiropractors in [facility] that do this; for my more complicated spine cases with decompression therapy, I generally recommend Dr. Elmore with [facility] ([facility] in [place]). As we discussed, decompression is a specific type of traction that is more focused on the area that is tight, and can often do a pretty decent job of buying the nerves some breathing room ---> the idea of combining decompression and nerve root injections would be to try to prevent decline, and help your nerve function as best as they can, in spite of the arthritis. - In addition, we will want you doing as much physical activity as you can to try to improve strength and conditioning and spite of the spinal stenosis. Like we talked, unfortunately this can require a ton of work for a tiny bit of progre ssbut it is well worth the effort. The exercise bike that you have sounds ideal, because you can use it in a position that is usually favorable for opening up nerve roots (leaning forward is often helpful), and also because you can use the bike for exercise even if you are feeling more wobbly that day - for now, I would hold off on formal physical therapygiven that you will be "busy enough" with everything else that we are setting in motion, as well as getting in daily exercise. If you are doing everything else, and feel like you just are not quite improving enough, a few months from now (arbitrarily mid April) it would be reasonable to then give trial to formal physical therapy for a little while to see if that creates more of an improvement. you can look at the above as "playing defense" (protecting yourself from worsening/further decline), and "playing offense" (measures to try to improve your situation) playing defense: Using your walker unless you are feeling extremely stable, and still always using your cane so that your brain knows where your lower body is in space; using the chairlift so that you have zero risk of falling down the stairs, trying artificial tear eyedrops/hydration to improve the blurring in your vision, and always being aware of your surroundings and creating a mindset of "do not fall first, do what I am trying to achieve second" playing offense: Nerve root injections if pain management sees areas that will benefit, decompression therapy to try to open up your spinal canal, and regular daily exercise to improve your strengthening as best you can Pending Studies at Discharge: No Stand-Alone Forms: My [facility] [employer], Smoking Cessation Medications and DC Order Prescriptions: Continued alprazolam 0.5 mg tablet 1 mg PO HS PRN (Reason: Sleep) Qty: 180 0RF citalopram 10 mg tablet 10 mg PO DAILY Qty: 90 1RF lisinopril 40 mg tablet 40 mg PO DAILY Qty: 90 1RF levothyroxine 75 mcg tablet 75 mcg PO QAM Qty: 90 5RF amlodipine 5 mg tablet 5 mg PO DAILY Qty: 90 4RF cholecalciferol (vitamin D3) 25 mcg (1,000 unit) capsule 25 mcg PO DAILY polyethylene glycol 3350 17 gram/dose powder 17 g PO QAM Glucosamine Chondroitin PLUS 208-285-21-54 mg Capsule 1 cap PO QAM Discharge Orders: Discharge Order (Routine); Ordered 02/03/25 Ordered By: Daniel Elliott Admission Data Admit Date/Time: 02/02/25 20:43 Attending Provider: Victor M Carrion Admit Provider: Opal England Primary Care Provider: Chen Mayes Other Providers: Miko Raya; Abran Enciso Other Interventions: Discharge Summary Assessment (RN) Last Done: 02/03/25 17:39 Supervising Physician Co-Signing Physician Notes I personally examined the patient and verified all kevin points of history and exam, discussed case, and agree with decision making with Dr Elliott Feeling okay. Notes that over the last few weeks she was just much more wobbly than before. She also notes vague blurred vision that seems to be off and on. She saw her supervisor of communications who did not find any true ocular reason for the blurred vision. She was discussing with her PCP before she and her decided to take a fairly long trip to visit their sonand because the PCP expressed concern about her unsteadiness possibly being a SPANISH TRANSLATOR process such as a stroke she came to the ER for further workup. MRI brain fortunately negative, MRI L-spine quite consistent with spinal stenosis. Ortho/spine input greatly appreciated. Vitals noted, in general she is awake alert oriented pleasant no distress. HEENT normocephalic atraumatic mucous membranes moist. Extraocular motion intact no gross abnormalities of her eyes. Gait is somewhat wide-based and very slow slightly off balance but she is able to self-correcther feet are somewhat externally rotated in a "duck walk" type posture. She is able to get in and out of bed under her own power. Whenever I test proprioception at her toes, she is able to tell me which toe/which direction, but her gait does seem to be consistent with the difficulty in finding where she is in space. Unsteady gaitfortunately no SPANISH TRANSLATOR process. 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 I wonder if the "why now" may be from blurring of visionwith the way she was walking it seemed like she probably relies pretty significantly on vision to make up for lack of proprioception, and the blurring may have made this worse. Lumbar spinal stenosissee discharge instructions. Discussed at length. She is understandably reticent for surgery, and I empathized with her reticence. Discussed safety measures (extensive discussion on surrogate proprioception with a cane or a walker, but that the walker can also provide stability and reduce fall risk which the cane cannot), discussed that she has stair lifts at home and frequently severe falls happen on a staircaseand so she really probably should never walk up and down the stairs, and rather use the stair lift that she has. Discussed nonsurgical options that may help stabilize or improve her situation (pain management for epidural injections if they see any dominant nerve compression that may be beneficial), referral for decompression/traction therapy, and overall strengthening to try to keep her self built up as well as possible. Blurred visionsaw her supervisor of communications just a few days ago who evaluated her quite thoroughly and did not have any clear cause. The way she is describing it it almost sounds like the blurring of vision one gets when one's eyes are dry or irritateddiscussed hydration, recommended single use vial artificial tears eyedrops, and following symptoms to see if any seems to be allergic. Obviously no alarm signs as it relates to her vision. Safe/stable for home and would very much like to go home. Otherwise as above and per discharge instructions. Resident Activity Tracking Resident Involvement: Resident Care Provided Care Provided: Adult [facility]
--- NOTE | 2025-02-03 18:08 | Billing Data ---
Date of Service February 03, 2025 Coding Level of Care Code 53098 INP/OBS DISCH >30 MIN
== END 2025-02-03 17:58 | disposition home or self-care (01) | DRG 552 ==
LOC: ED 15:10 → SUATTDRO 20:43 → EDINP 20:43 → 3W 21:01